=== PATIENT | male | born 1950 | race Caucasian/White ===

== ENCOUNTER 2020-03-24 09:19 | Outpatient (CLI) | payer OTHER, SELFPAY ==
--- NOTE | ~2020-03-24 | US_ITS ---
US renal BI 03/24/2020 10:06 Procedure: Realtime transabdominal ultrasound of the kidneys and bladder. Indication: Chronic kidney disease stage IV Comparison: Ultrasound dated 09/04/2019 Findings: Renal echotexture is increased, consistent with chronic medical renal disease. No discrete mass or hydronephrosis. No renal stones. The right kidney measures 10 cm and left kidney measures 13. 3 cm. Bladder wall is thickened measuring 6 mm, although not well distended. Impression: 1: Increased renal cortical echotexture, consistent with chronic medical renal disease. 2: Mild bladder wall thickening which may be due to underdistention, bladder outlet obstruction or c ystitis. Reviewed, dictated and finalized at location A. Impression: 1: Increased renal cortical echotexture, consistent with chronic medical renal disease. 2: Mild bladder wall thickening which may be due to underdistention, bladder o utlet obstruction or cystitis.
== END 2020-03-24 09:20 | disposition home or self-care (01) ==
LOC: ANHIMG 09:22
PROVIDERS: PCP Family Medicine; Visit Provider Internal Medicine Nephrology
DX: N18.4 Chronic kidney disease, stage 4 (severe) (principal); N32.9 Bladder disorder, unspecified
CPT/HCPCS: 76775

== ENCOUNTER 2020-05-22 06:03 | Observation (INO) | payer OTHER, SELFPAY ==
[2020-05-22] VITALS (16 sets, daily range): BP systolic 107–158; BP diastolic 49–63; PULSE 65–89; RESP 16–20; TEMP 36.2–36.9; O2SAT 98–100; BMI 31.6; BMI 30.4
--- NOTE | ~2020-05-22 | NM_ITS ---
EXAMINATION: NM brandi stress w perfusion DATE: 05/22/2020 14:35 INDICATION: TECHNIQUE: Rest images were obtained following intravenous administration Tc99m tetrofosmin (Myoview) . The patient was infused intravenously with Lexiscan (Regadenoson). Then additional Tc99m tetrofosmi n (Myoview) was administered intravenously, and stress images were obtained. The administered dosages are unavailable at the time of dictation. Data was reconstructed into short axis and horizontal and vertical long axis SPECT images. Gated SPECT images were also obtained. COMPARISON: None. FINDINGS: There is a moderate severity nonreversible perfusion defect consistent with infarct involvi ng the mid and basilar inferior, mid and basilar inferolateral and apical lateral segments. Small mil d reversible perfusion defect consistent with ischemia at the mid and basilar anterolateral segments. There is normal left ventricular chamber size, wall motion and ejection fraction. Left ventricular ejection fraction measures 49%. IMPRESSION: 1. Moderate severity nonreversible infarct involving the mid and basilar inferior and inferolateral s egments and the apical lateral segment. 2. Small region of mild reversible ischemia involving the mid and basilar anterolateral segments. 2. Left ventricular ejection fraction measuring 49%. Reviewed, dictated and finalized at location A. IMPRESSION: 1. Moderate severity nonreversible infarct involving the mid and basilar inferi or and inferolateral segments and the apical lateral segment. 2. Small region of mild reversible ischemia involving the mid and basilar anter olateral segments. 2. Left ventricular ejection fraction measuring 49%.
--- NOTE | ~2020-05-22 | US_ITS ---
EXAMINATION: US renal BI DATE: 05/22/2020 12:53 INDICATION: Acute on chronic kidney disease with renal failure. TECHNIQUE: Multiple ultrasound grayscale images of the kidneys were obtained. COMPARISON: 03/24/2020 FINDINGS: The right kidney measures 11.4 x 8.2 x 5.3 cm. The left kidney measures 15.1 x 7.7 x 5.0 cm. Bilatera l increased renal cortical echogenicity consistent with medical renal disease. There is no definitive hydronephrosis in either kidney although sensitivity for mild hydronephrosis is decreased by body wright bitus. No stones identified. The bladder is decompressed which limits evaluation. A left-sided urete ral jet but no right-sided ureteral jets was visualized. IMPRESSION: 1. Bilateral increased renal cortical echogenicity consistent with medical renal disease. 2. Left ureteral jet but no right ureteral jet visualized in the bladder. No definitive hydronephrosi s however sensitivity for mild hydronephrosis is decreased by patient body habitus. Reviewed, dictated and finalized at location A. IMPRESSION: 1. Bilateral increased renal cortical echogenicity consistent with medical raquel l disease. 2. Left ureteral jet but no right ureteral jet visualized in the bladder. No de finitive hydronephrosis however sensitivity for mild hydronephrosis is decrease d by patient body habitus.
--- NOTE | ~2020-05-22 | XR_ITS ---
EXAMINATION: XR chest 1V portable DATE: 05/22/2020 06:41 INDICATION: Chest tightness. Right arm numbness. TECHNIQUE: frontal view of the chest was obtained. COMPARISON: Chest radiograph dated 04/19/2011 FINDINGS: The lungs are clear with no focal airspace opacities, pulmonary edema, pleural effusion or pneumothor ax. The cardiomediastinal silhouette is normal. There are bridging osteophytes at multiple levels in the spine, consistent with diffuse idiopathic skeletal hyperostosis (DISH). Severe bilateral acromioc lavicular osteoarthritis. IMPRESSION: 1. No acute cardiopulmonary disease. Reviewed, dictated and finalized at location A.
--- NOTE | 2020-05-22 06:06 | ECG_ITS ---
Measurements Intervals [place] Rate: 82 P: 36 MT: 229 QRS: -26 QRSD: 113 T: 57 QT: 355 QTc: 415 Interpretive Statements SINUS RHYTHM WITH FIRST DEGREE AV BLOCK INCOMPLETE RIGHT BUNDLE BRANCH BLOCK ABNORMAL ECG Electronically Signed On 05-22-2020 14:52:03 CDT by Mina Whitaker D.O.
--- NOTE | 2020-05-22 06:08 | ED.GENADULT ---
HPI - General Adult General Chief complaint: Chest Pain Stated complaint: SOB/CP Time Seen by Provider: 05/22/20 06:08 Source: patient Mode of arrival: ambulatory Limitations: no limitations History of Present Illness HPI narrative: Patient is a 70-year-old male with a history of diabetes, bilateral below the knee amputations, chronic kidney disease, MGUS, following with hematology/oncology at [facility], who presents for evaluation of chest pain. Patient states that he awakened approximately 4 AM, was shaving, when he suddenly began to experience some chest pain or shortness of breath. He states symptoms lasted less than 30 minutes, and completely resolved within an hour. He wanted to seek care in the emergency department because he also had associated nausea, diaphoresis and right-sided neck pain. No current chest pain, palpitations or shortness of breath. No history of DVT. Patient did have a stent placed several years ago by Dr. Wolfe. Related Data Home Medications Medication Instructions Recorded Confirmed acetaminophen 500 mg capsule 500 mg PO BID cap 11/28/19 12/05/19 amlodipine 5 mg tablet 5 mg PO DAILY 11/28/19 12/05/19 aspirin 81 mg tablet,delayed 81 mg PO DAILY 11/28/19 12/05/19 release carboxymethylcellulose sodium 0.5 1 drop EACH EYE BID 11/28/19 12/05/19 % eye drops in a dropperette multivitamin 1 tablet PO DAILY 11/28/19 12/05/19 flu vacc [id number](65yr up)PF 180 ml IM 12/01/19 12/05/19 mcg/0.5 mL intramuscular syringe ascorbic acid (vitamin C) 250 mg 250 mg PO DAILY 12/04/19 12/05/19 tablet ferrous sulfate 325 mg (65 mg 325 mg PO DAILY 12/04/19 12/05/19 iron) tablet linagliptin 5 mg tablet 5 mg PO QAM 12/04/19 12/05/19 lisinopril 10 mg tablet 10 mg PO BID 12/04/19 12/05/19 blood sugar diagnostic #10 each 12/05/19 12/05/19 lancets #50 each 12/05/19 12/05/19 Allergies Allergy/AdvReac Type Severity Reaction Status Date / Time morphine Allergy Intermediate Dyspnea / Verified 05/22/20 06:15 SOB Review of Systems Review of Systems: Narrative: CONSTITUTIONAL: Denies fever, chills, or sweats. EYES: Denies visual changes, redness, or discharge. ENT: Denies rhinorrhea, congestion, sore throat, or otalgia. CARDIOVASCULAR: Reports chest pain RESPIRATORY: Denies cough or dyspnea. GASTROINTESTINAL: Denies abdominal pain, nausea, vomiting, or diarrhea. GENITOURINARY: Denies dysuria or hematuria. SKIN: Denies rash or itching. MUSCULOSKELETAL: Denies back pain, joint pain, or myalgia. NEUROLOGIC: Denies headache, numbness, or weakness. FOR[facility] Past Medical History Medical History BPH associated with nocturia Gout History of left below knee amputation HTN (hypertension), benign Type 2 diabetes mellitus with other circulatory complications Surgical History Surgical History History of colonoscopy (~06/2018) History of right below knee amputation Family History Family History Father Family history of obesity Family history of cataracts Hypertension, Onset Age: 72 Cerebrovascular accident Family history of diabetes mellitus in first degree relative, Onset Age: 72 Family history of hearing loss Patient's father is , Onset Age: 72 Mother Family history of malignant neoplasm Patient's mother is , Onset Age: 71 Social History Social History Smoking status: Former smoker Smoking end date: 11/21/89 Alcohol intake: never Gender identity (if verbalized by the patient): Male Exam Narrative: Exam Narrative: GENERAL: Awake, alert, conversant HEAD: Normocephalic, atraumatic. EYES: PERRLA and EOMI. ENT: Nares clear, no rhinorrhea or epistaxis. Mucous membranes moist. NECK: Supple. CHEST: No respiratory
[2020-05-22 06:25] LABS: Basophils Absolute Auto 0.1 K/mm3 (0.0-0.1); Basophils Percent Auto 0.6 % (0.2-1.2); Eosinophils Absolute Auto 0.2 K/mm3 (0-0.3); Eosinophils Percent Auto 1.7 % (0-4.4); Hemoglobin 9.5 g/dL (14.0-18.0); Immature Granulocyte Absolute 0.06 K/mm3 (0.00-0.031); Immature Granulocyte Percent A 0.5 % (0-0.5); Lymphocytes Absolute Auto 1.55 K/mm3 (0.9-3.2); Lymphocytes Percent Auto 13.7 % (18.3-44.2); Mean Corpuscular HGB Conc 32.8 g/dl (32-36); Mean Corpuscular Hemoglobin 31.3 pg (26-34); Mean Corpuscular Volume 95.4 fl (80-100); Mean Platelet Volume 9.9 fl (7.4-10.4); Monocytes Absolute Auto 0.9 K/mm3 (0.1-0.6); Monocytes Percent Auto 8.3 % (2.6-8.5); Neutrophils Absolute Auto 8.5 K/mm3 (1.3-6.7); Neutrophils Percent Auto 75.2 % (45.5-73.1); Platelet Count Result 243 k/mm3 (150-375); Red Blood Count 3.04 M/mm3 (4.6-6.20); Red Cell Distribution Width 13.3 % (11.5-14.5); White Blood Count 11.4 K/mm3 (4.5-10.0)
--- NOTE | 2020-05-22 06:30 | PC.NURSE ---
PT TO RADIOLOGY AT THIS TIME IN [facility].
[2020-05-22 06:35] LABS: INR 1.1; Prothrombin Time 13.5 Seconds (11.1-14.7)
[2020-05-22 06:37] LABS: Blood Urea Nitrogen 77 mg/dL (9-20); Calcium 9.1 mg/dL (8.4-10.2); Carbon Dioxide 23 mmol/L (22-30); Chloride 105 mmol/L (98-107); Estimated CRCL calculation 15 ml/min; Estimated Glomerular Filt Rate 9; Glucose 109 mg/dL (75-110); Partial Thromboplastin Time 64.1 SECONDS (22.3-36.8); Potassium 5.3 mmol/L (3.4-5.0); Sodium 139 mmol/L (137-145)
[2020-05-22] MEDS: ASPIRIN 81 MG CHEWABLE TABLET 324 MG PO (06:43)
--- NOTE | 2020-05-22 07:06 | PC.NURSE ---
PT REPORT GIVEN TO CAT COFFMAN, SHE HAS ASSUMED PT CARE.
--- NOTE | 2020-05-22 08:43 | ADMGEN ---
This patient, Sal Duarte, was admitted to IMU Room 209-. Patient/family oriented to hospital policies and general routines including ID bracelet, bed and alarms, visiting hours, pain management, procedures, bathroom and other care routines, personal items, smoking policy, room service/diet, and visiting hours. Valuables list has been completed. Information on how to activate the Rapid Response Team has been discussed. Patient/Family are encouraged to report perceived risks to care and to ask questions if they do not understand what they are told or what they should do.
--- NOTE | 2020-05-22 09:01 | PM.CNCAR ---
Assessment and Plan Assessment and plan (1) Chest pain: Qualifiers: Chest pain type: unspecified Qualified Code(s): R07.9 - Chest pain, unspecified Code(s): R07.9 - Chest pain, unspecified Status: Acute Assessment and Plan: Has a history of proximal LAD drug-eluting stent 2009. So far 2-troponins and no ischemic changes on EKG. Given his high-risk features will arrange for a Lexiscan stress test to rule out ischemia. (2) Acute kidney injury: Code(s): N17.9 - Acute kidney failure, unspecified Status: Acute Assessment and Plan: Acute on chronic kidney injury. Baseline creatinine 4 today the creatinine 6. Recommend Nephrology input. Nephrology (3) CAD (coronary artery disease): Code(s): I25.10 - Atherosclerotic heart disease of [place] coronary artery without angina pectoris Status: Acute Assessment and Plan: Continue aspirin History of Present Illness History of Present Illness Consult date/time: Date of service 05/22/20 09:01 This is 70-year-old patient with past medical history of diabetes, bilateral BKA, hypertension, hyperlipidemia, CKD. Patient has a history of proximal LAD stenting 2009. Last time he followed up with Dr. Wolfe was 3 years ago. November 23, 2016. He woke up this morning feeling central chest discomfort, sweating. He took a shower and then went to the kitchen and was having increasing shortness of breath. Denies dizziness, palpitations, syncope, fever, chills, cough EKG reviewed myself shows sinus rhythm, first-degree heart block, incomplete right bundle branch block. No ischemia. 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 Reason For Visit: chest pain Review of Systems Constitutional: Constitutional: Denies chills, Denies fever(s) and Denies poor appetite Eyes: Eyes: Denies eye discharge, Denies loss of vision, Denies eye pain and Denies photophobia ENT: Denies dizziness, Denies epistaxis, Denies nasal congestion and Denies sore throat Cardiovascular: Cardiovascular: Reports chest pain, Denies syncope, Denies pedal edema, Denies leg edema, Denies palpitations, Reports dyspnea, Reports dyspnea on exertion and Denies orthopnea Respiratory: Respiratory: Denies cough, Reports dyspnea, Reports dyspnea on exertion and Denies wheezing Gastrointestinal: Gastrointestinal: Denies abdominal pain, Denies diarrhea, Denies nausea and Denies vomiting Genitourinary: Genitourinary: Denies hematuria, Denies genital lesions and Denies dysuria Musculoskeletal: Musculoskeletal: Denies arthralgias, Denies joint swelling and Denies numbness Integumentary/Breasts: Skin/Breast: Denies pruritus and Denies rash Neurologic: Denies dizziness, Denies syncope, Denies loss of vision and Denies numbness Psychiatric: Psychiatric: Denies anxiety and Denies depression Endocrine: Endocrine: Denies cold intolerance, Denies heat intolerance and Denies palpitations Hematologic/Lymphatic: Hematologic/Lymphatic: Denies easy bleeding and Denies easy bruising Allergic/Immunologic: Allergic/Immunologic: Denies urticaria and Denies wheezing PMFSH Past Medical History Medical History BPH associated with nocturia Gout History of left below knee amputation HTN (hypertension), benign Type 2 diabetes mellitus with other circulatory complications Surgical History Surgical History History of colonoscopy (~06/2018) History of right below knee amputation Family History Family History Father Family history of hearing loss Family history of diabetes mellitus in f
[2020-05-22 09:55] LABS: Troponin I 0.027 ng/mL (0.000-0.034)
--- NOTE | 2020-05-22 10:10 | EST_ITS ---
Patient Info Name: Sal Duarte Age: 70 years : 1950 Gender: Male Ht: 76 in Wt: 250 lbs BSA: 2.49 m2 Heart Rhythm: Sinus Rhythm Exam Date: 05/22/2020 1:19 PM Exam Location: [facility] Stress Patient Status: Outpatient Admit Date: 05/22/2020 Staff Ordering Physician: Tin Allred MD Attending Provider: Edin Gao MD Exercise Technologist: Rianna Swartz RDCS Nurse: Amarilis Ellison ANP, ACNP- Exam Type: CA stress brandi w NM Study Info Indications R07.9 - Chest pain, unspecified A regadenoson stress test was performed. Summary 1. No arrhythmias were observed during the examination. 2. No abnormal ST/T wave changes with exercise. 3. Please correlate with nuclear medicine images, reported separately. 4. No chest discomfort with stress test. Protocol: Lexiscan Stress ECG Details Stage: REST Duration (min): 1 min : 4 sec HR (bpm): 74 SBP (mmHg): 146 DBP (mmHg): 64 Stage: REST Duration (min): 10 min : 53 sec HR (bpm): 75 SBP (mmHg): 146 DBP (mmHg): 64 Stage: STAGE 1 Duration (min): 0 min : 59 sec HR (bpm): 79 SBP (mmHg): 145 DBP (mmHg): 63 Stage: RECOVERY Duration (min): 1 min : 0 sec HR (bpm): 88 SBP (mmHg): 122 DBP (mmHg): 57 Stage: RECOVERY Duration (min): 2 min : 0 sec HR (bpm): 85 SBP (mmHg): 122 DBP (mmHg): 57 Stage: RECOVERY Duration (min): 3 min : 0 sec HR (bpm): 83 SBP (mmHg): 115 DBP (mmHg): 41 Stage: RECOVERY Duration (min): 4 min : 0 sec HR (bpm): 81 SBP (mmHg): 115 DBP (mmHg): 41 Stage: RECOVERY Duration (min): 5 min : 0 sec HR (bpm): 79 SBP (mmHg): 122 DBP (mmHg): 52 Stage: RECOVERY Duration (min): 6 min : 0 sec HR (bpm): 78 SBP (mmHg): 122 DBP (mmHg): 52 Stage: RECOVERY Duration (min): 7 min : 0 sec HR (bpm): 77 SBP (mmHg): 127 DBP (mmHg): 51 Stage: RECOVERY Duration (min): 8 min : 0 sec HR (bpm): 78 SBP (mmHg): 127 DBP (mmHg): 51 Stage: RECOVERY Duration (min): 9 min : 0 sec HR (bpm): 79 SBP (mmHg): 129 DBP (mmHg): 51 Stage: RECOVERY Duration (min): 10 min : 0 sec HR (bpm): 77 SBP (mmHg): 129 DBP (mmHg): 51 Stage: RECOVERY Duration (min): 11 min : 0 sec HR (bpm): 76 SBP (mmHg): 118 DBP (mmHg): 50 Stage: RECOVERY Duration (min): 11 min : 34 sec HR (bpm): 75 SBP (mmHg): 138 DBP (mmHg): 55 Rest HR: 75 bpm Peak HR: 88 bpm Rest Sys BP: 146 mmHg Peak Sys BP: 145 mmHg Max Pred HR: 150 bpm % Max Pred HR: 59 % Target HR: 128 bpm Max RPP: 12,760 bpm*mmHg Total Time: 1 min : 0 sec Rest Lynch BP: 64 mmHg Peak Lynch BP: 63 mmHg Total Dose: 0.4 mg Aminophylline Dose: 50 mg Resting ECG Normal sinus rhythm. First degree A-V Block. Nonspecific IVCD. Stress
--- NOTE | 2020-05-22 11:20 | PM.CNNEP ---
Assessment and Plan Assessment and plan (1) Acute kidney injury: Code(s): N17.9 - Acute kidney failure, unspecified Status: Acute (2) CKD (chronic kidney disease), stage V: Code(s): N18.5 - Chronic kidney disease, stage 5 Status: Chronic (3) Chest pain: Qualifiers: Chest pain type: unspecified Qualified Code(s): R07.9 - Chest pain, unspecified Code(s): R07.9 - Chest pain, unspecified Status: Chronic (4) HTN (hypertension), benign: Code(s): I10 - Essential (primary) hypertension Status: Chronic (5) PVD (peripheral vascular disease): Code(s): I73.9 - Peripheral vascular disease, unspecified Status: Chronic (6) Diabetes: Code(s): E11.9 - Type 2 diabetes mellitus without complications Status: Chronic Assessment and Plan: . Additional Plan Sal has chronic kidney disease with recent deterioration of his kidney function since November of 2019. I suspect that his elevated creatinine on this admission is more a manifestation of chronic kidney disease progression that it is an acute insult on his baseline disease. His labs over the last several months or more indicative of slow and steady deterioration as far as I can tell. However, I do not want discount the possibility of some reversible causes to his rising creatinine as if this is indeed kidney disease progression, the next step will be renal replacement therapy/dialysis. I will check urine electrolytes, urine eosinophils, I urinalysis and follow the trend of his repeat labs regarding his creatinine. I will also check a repeat renal ultrasound although his ultrasound done in March of 2020 just so changes consistent with medical renal disease. He does have some mild/soft uremic symptoms with regard to fatigue and insomnia but no overt nausea, vomiting, poor appetite, metallic taste in his mouth, difficulty thinking/concentrating...etc. I did have a very long and lengthy discussion with the patient (greater than 20 minutes) regarding the possibility that he may need to consider starting dialysis sooner than later as his labs may be a manifestation that his kidneys are just ?running out of gas.? For now, I would continue with current measures as is with regard to further evaluation of his chest pain and follow the trend of his CKD parameters with regard to his electrolytes, hemoglobin/hematocrit, volume status, acid-base status,..etc and make further adjustments to his medications as deemed necessary with regard to these parameters. I will continue follow patient with you while he remains hospitalized and make further recommendations during his hospital course Thank you for allowing me to participate in care this patient. History of Present Illness Reason for Consult Consult date: 05/22/20 Reason for consult: acute renal failure and chronic renal failure (possible progression of disease) Chief Complaint Chief complaint: chest pain History of Present Illness Narrative: The patient is a very pleasnt 70-year-old male with a significant past medical history as outlined below who presented to [facility] ER with complaints of chest pain. The patient noted the chest pain early this morning. The chest pain was localized in his central chest area on and last approximately 30 minutes or less and resolved within an hour. Associated symptoms included mild shortness of breath, nausea, diaphoresis, and neck pain. He reported no dizziness, palpitations syncope fevers chills or cough. Because of the symptoms and his history of coronary artery disease, he came to the ER for further evaluation. Workup and evaluation in the emergency room demonstrated the patient to be hemodynamically stable and his 1st troponin was negative. Routine blood test demonstrated a significant decline in his baseline kidney function from a creatinine of 4.0 to 6 with a mildly elevated white blood cell count and a chest x
[2020-05-22] MEDS: TAMSULOSIN HCL 0.4 MG CAPSULE PO (11:59)
[2020-05-22 12:19] LABS: Glucose Point of Care 86 (65-105)
[2020-05-22 12:19] LABS: Glucose Point of Care 70 (65-105)
[2020-05-22 13:02] LABS: Troponin I 0.031 ng/mL (0.000-0.034)
[2020-05-22 15:00] LABS: Glucose Point of Care 115 (65-105)
[2020-05-22 16:28] LABS: Glucose Point of Care 99 (65-105)
--- NOTE | 2020-05-22 17:18 | PM.IMHP ---
H&P: HPI History of Present Illness Chief complaint: chest pain Narrative: Date of visit 05/22 830. Sal Duarte is a 70 year old male with type 2 diabetes hypertension history of coronary disease and chronic renal failure who this a.m. early after rising developed substernal chest pressure with associated shortness of breath and diaphoresis. Pain seemed to radiate to his neck and he did take 3 nitroglycerins in a 15 minutes period and pain slowly subsided over the next 1/2 hour period. Contacted his physician services and they suggested he come to the emergency room for evaluation. He had a stent to his LAD July 2014 other arteries essentially normal. He had a non STEMI myocardial infarction 2009 with no intervention at that time. He states he has not had any symptoms since the episode in 2013 and is never taken nitroglycerin till today Review of Systems Review of Systems: Narrative: Constitutionally status that slow steady weight loss over last few years over 50 lb with dieting No fever no chills Eye no double vision scotoma, cataract extraction left eye 3 weeks ago had with good results Mouth no pharyngitis laryngitis Pulmonary of and present illness no shortness breath wheezing or cough CV no palpitation GI no melena hematochezia diarrhea some slowing of urination and has been placed on Flomax for BPH Extremity has bilateral BKA Neuro no seizures no syncope Psych no depression PMFSH Past Medical History Medical History (Updated 05/22/20 @ 17:31 by Edni Gao MD) BPH associated with nocturia CAD (coronary artery disease) Gout History of left below knee amputation HTN (hypertension), benign Type 2 diabetes mellitus with other circulatory complications Surgical History Surgical History History of colonoscopy (~06/2018) History of right below knee amputation Family History Family History Father , Age 70 Family history of hearing loss Family history of diabetes mellitus in first degree relative, Onset Age: 72 Patient's father is , Onset Age: 72 Family history of obesity Family history of cataracts Hypertension, Onset Age: 72 Cerebrovascular accident Mother , Age 78 and had leukemia her complicated of pneumonia Family history of malignant neoplasm Patient's mother is , Onset Age: 71 Sibling Aneurysm Diabetes mellitus Congestive heart failure Social History Social History Smoking packs per day: 1 Smoking cigarettes per day: 20.0 Years smoked: 8 Smoking pack-years: 8.00 Smoking status: Former smoker Tobacco type: cigarettes Smoking end date: 11/21/89 Additional smoking assessment comments: quit about 25 yrs ago Alcohol intake: never Substance use: never Gender identity (if verbalized by the patient): Male Spiritual care concerns: No Meds Home Medications and Allergies Home Medications Medication Instructions Recorded Confirmed Type acetaminophen 500 mg capsule 1,000 mg PO Q6H PRN cap 11/28/19 05/22/20 History amlodipine 5 mg tablet 5 mg PO DAILY 11/28/19 05/22/20 History aspirin 81 mg tablet,delayed 81 mg PO DAILY 11/28/19 05/22/20 History release carboxymethylcellulose sodium 0.5 1 drop EACH EYE BID PRN 11/28/19 05/22/20 History % eye drops in a dropperette multivitamin 1 tablet PO DAILY 11/28/19 05/22/20 History tamsulosin 0.4 mg capsule 0.4 mg PO DAILY #90 cap 11/28/19 05/22/20 Rx allopurinol 100 mg tablet 100 mg PO DAILY #90 tablet 11/29/19 05/22/20 Rx famotidine 20 mg tablet 20 mg PO BID #180 tablet 11/29/19 05/22/20 Rx ascorbic acid (vitamin C) 250 mg 250 mg PO BIDWM 12/04/19 05/22/20 History tablet ferrous sulfate 325 mg (65 mg 325 mg PO BIDWM 12/04/19 05/22/20 History iron) tablet linagliptin 5 mg tablet 5 mg PO QAM 12/04/19 05/22/20
[2020-05-22] MEDS: FERROUS SULFATE 324 MG TABLET PO (17:34)
[2020-05-22] MEDS: ASCORBIC ACID 250 MG TABLET PO (17:35)
[2020-05-22] MEDS: AMLODIPINE BESYLATE 5 MG TABLET PO (17:35)
[2020-05-22 19:16] LABS: Creatinine Urine 41.6 mg/dL
[2020-05-22 19:27] LABS: Sodium Urine Random 43 meq/L
[2020-05-22 19:28] LABS: Total Protein Urine Random 358 mg/dL
[2020-05-22] MEDS: METOPROLOL TARTRATE 50 MG TAB PO (20:36)
[2020-05-22] MEDS: FAMOTIDINE 20 MG TABLET PO (20:36)
[2020-05-22] MEDS: SIMVASTATIN 10 MG TABLET PO (20:36)
[2020-05-22 22:03] LABS: Glucose Point of Care 139 (65-105)
[2020-05-23] VITALS (13 sets, daily range): BP systolic 124–183; BP diastolic 35–71; PULSE 57–105; RESP 18–20; TEMP 35.6–36.1; O2SAT 88–100
[2020-05-23] MEDS: ACETAMINOPHEN 325 MG TABLET 650 MG PO (02:34)
[2020-05-23 04:56] LABS: Basophils Absolute Auto 0.1 K/mm3 (0.0-0.1); Basophils Percent Auto 0.6 % (0.2-1.2); Eosinophils Absolute Auto 0.2 K/mm3 (0-0.3); Eosinophils Percent Auto 1.8 % (0-4.4); Hemoglobin 8.9 g/dL (14.0-18.0); Immature Granulocyte Absolute 0.05 K/mm3 (0.00-0.031); Immature Granulocyte Percent A 0.5 % (0-0.5); Lymphocytes Absolute Auto 2.19 K/mm3 (0.9-3.2); Lymphocytes Percent Auto 21.1 % (18.3-44.2); Mean Corpuscular Hemoglobin 31.2 pg (26-34); Mean Corpuscular Volume 94.7 fl (80-100); Mean Platelet Volume 9.8 fl (7.4-10.4); Monocytes Percent Auto 9.7 % (2.6-8.5); Neutrophils Absolute Auto 6.9 K/mm3 (1.3-6.7); Neutrophils Percent Auto 66.3 % (45.5-73.1); Platelet Count Result 238 k/mm3 (150-375); Red Blood Count 2.85 M/mm3 (4.6-6.20); Red Cell Distribution Width 13.2 % (11.5-14.5); White Blood Count 10.4 K/mm3 (4.5-10.0)
[2020-05-23 05:06] LABS: Blood Urea Nitrogen 80 mg/dL (9-20); Calcium 8.5 mg/dL (8.4-10.2); Carbon Dioxide 22 mmol/L (22-30); Chloride 102 mmol/L (98-107); Estimated CRCL calculation 15 ml/min; Estimated Glomerular Filt Rate 9; Glucose 106 mg/dL (75-110); Sodium 133 mmol/L (137-145)
[2020-05-23] MEDS: ASCORBIC ACID 250 MG TABLET PO (08:51)
[2020-05-23] MEDS: FERROUS SULFATE 324 MG TABLET PO (08:51)
[2020-05-23] MEDS: METOPROLOL TARTRATE 50 MG TAB PO (08:51)
[2020-05-23] MEDS: MULTIVITAMINS THERAPEUTIC TAB (*BKC) 1 TABLET PO (08:52)
[2020-05-23 09:11] LABS: Glucose Point of Care 98 (65-105)
--- NOTE | 2020-05-23 11:11 | PM.PNCARD ---
Progress Note: A&P Assessment and Plan (1) Chest pain: Qualifiers: Chest pain type: unspecified Qualified Code(s): R07.9 - Chest pain, unspecified Code(s): R07.9 - Chest pain, unspecified Status: Chronic Assessment and Plan: No recurrence. Serial troponins negative and ruled out for acute myocardial infarction. Symptoms concerning for ischemic equivalent as an outpatient. Lengthy discussion held with regards risk and benefits of coronary angiography. Given results of stress test coronary angiography advised, however, timing will be crucial. If patient remains asymptomatic prefer to follow conservative path given the fact that coronary angiography and contrast exposure will very likely result in initiation of hemodialysis. No immediate plans to start hemodialysis, however, it appears to be inevitable. Patient would not prefer to proceed with cardiac catheterization given this risk particular as he is feeling well. He was advised that he could have worsening symptoms and/or ultimately acute myocardial infarction, however, he wishes to proceed with a conservative path on medical therapy and communicate any new or worsening symptoms immediately with recommendations to follow thereafter. We may proceed with cardiac catheterization if necessary but he will need to be prepared to start hemodialysis at that time. Curiously, the abnormalities on his stress test involve several other areas of his heart with exception of anterior wall which was where he had predominant disease on last [facility] in 2009. He had minimal to no disease in the circ and RCA at that time. Furthermore, he has no associated wall motion abnormalities with preserved LV function. Has a history of proximal LAD drug-eluting stent 2009. Add Imdur 30 mg daily for additional antianginal benefit. Check fasting lipid profile. Continue statin, metoprolol, aspirin 81 mg daily, AMANDA-inhibitor. Follow-up with Dr. Wolfe as an outpatient in the next 2-4 weeks. He will notify the office immediately with recurrent chest pain, shortness of breath or otherwise unexplained fatigue. Patient aware of the risk for myocardial infarction in general. Patient stable, asymptomatic without acute infarction. All questions answered to his satisfaction. Patient in agreement with the plan of care. Will see as needed. Please do not hesitate to contact us with additional questions or concerns. (2) Acute kidney injury: Code(s): N17.9 - Acute kidney failure, unspecified Status: Acute Assessment and Plan: Management per Nephrology. Acute on chronic kidney injury. Dialysis inevitable but no immediate plans thus far. Recommend Nephrology input. Nephrology (3) CAD (coronary artery disease): Code(s): I25.10 - Atherosclerotic heart disease of tribe coronary artery without angina pectoris Status: Acute Assessment and Plan: Continue aspirin, beta-angely, AMANDA-inhibitor, statin. Management as above. Subjective Date/time seen: Date of service: 05/23/20 11:11 Follow-up for chest pain, CAD history Interval history: No recurrent complaints of chest pain. No shortness of breath. No new issues overnight. Stress test yesterday revealed fixed defect with mild ischemia, EF 49% without wall motion abnormalities. Patient feels fine and has no other complaints at this time. Review of Systems Review of Systems: All systems reviewed & are unremarkable except as noted in HPI and below Constitutional: Constitutional: Reports as per HPI, Denies chills, Denies fever(s) and Denies poor appetite Eyes: Eyes: Reports as per HPI, Denies eye discharge, Denies loss of vision, Denies eye pain and Denies photophobia ENT: Reports as per HPI, Denies dizziness, Denies epistaxis, Denies nasal congestion and Denies sore throat Cardiovascular: Cardiovascular: Reports as per HPI, Denies chest pain, Denies syncope, Denies pedal edema, Denies leg edema, Denies pa
[2020-05-23 12:50] LABS: Cholesterol 129 mg/dL (0-200); HDL Direct 23 mg/dL; Triglycerides 133 mg/dL (<150)
[2020-05-23 13:02] LABS: LDL Cholesterol Direct 77 mg/dL
[2020-05-23 13:24] LABS: Glucose Point of Care 165 (65-105)
--- NOTE | 2020-05-23 13:56 | PM.PNNEP ---
Progress Note: A&P Assessment and Plan (1) CKD (chronic kidney disease), stage V: Code(s): N18.5 - Chronic kidney disease, stage 5 Status: Chronic Assessment and Plan: based on all evidence to date, suspect current creatinine is a manifestation of kidney disease progression in spite of advanced disease, no critical electrolyte abnormalities, stable acid-base status, no evidence of volume overload, and no issue related to uremia hence, no need for urgent dialysis at this time but he will require it in the near future follow CKD parameters (2) Chest pain: Qualifiers: Chest pain type: unspecified Qualified Code(s): R07.9 - Chest pain, unspecified Code(s): R07.9 - Chest pain, unspecified Status: Chronic Assessment and Plan: stress test results noted Cardiology discussion and recommnedations reviewed patient opting for conservative management at this time (3) HTN (hypertension), benign: Code(s): I10 - Essential (primary) hypertension Status: Chronic Assessment and Plan: well controlled at this time follow trend of hemodynamics continue current medications (4) PVD (peripheral vascular disease): Code(s): I73.9 - Peripheral vascular disease, unspecified Status: Chronic Assessment and Plan: chronic issue and stable (5) Diabetes: Code(s): E11.9 - Type 2 diabetes mellitus without complications Status: Chronic Assessment and Plan: follow accuchecks on SSI Discussed with Dr. Gao -- not opposed to discharge from renal perspective; he will follow-up with Dr. Joseph in clinic regarding his CKD and dialysis access planning. Will continue to follow. Subjective Date/time seen: 05/23/20 13:56 No further chest pain since admission; results of nuclear stress test noted; no other acute issues or problems to report at this time; no apparent distress voiced. Exam Narrative: Exam Narrative: General: WD/WN male/female in NAD Heart: normal S1 and S2; no rub Lungs: clear to auscultation Abdomen: soft, nontender, nondistended, positive bowel sounds Extremities: no cyanosis or clubbing; s/p bilateral BKA Skin: warm and dry Objective Data Vital Signs Vital Signs: Vital Signs Temp Pulse Resp BP Pulse Ox 05/23/20 13:26 35.9 C L 67 20 124/35 L 100 05/23/20 12:00 76 05/23/20 10:00 105 H 05/23/20 08:51 87 05/23/20 08:48 35.6 C L 76 18 183/71 H 100 05/23/20 08:00 84 05/23/20 06:00 57 L 05/23/20 04:00 72 05/23/20 03:45 36.1 C L 69 18 135/66 88 L 05/23/20 02:00 67 05/23/20 00:00 36.1 C L 65 18 158/60 H 100 05/22/20 22:00 75 05/22/20 20:36 84 05/22/20 20:00 76 05/22/20 19:37 36.2 C L 75 18 133/49 L 100 05/22/20 18:00 78 05/22/20 16:35 36.5 C 73 20 158/63 H 100 05/22/20 16:00 75 05/22/20 14:00 87 Intake/Output Intake/Output: Intake & Output 05/20/20 05/21/20 05/22/20 05/23/20 23:59 23:59 23:59 23:59 Intake Total 440 1860 Output Total 700 650 Balance -260 1210 Meds/Results Medications: Active Medications Generic Name Dose Route Start Last Admin Trade Name Freq PRN Reason Stop Dose Admin Acetaminophen 650 mg 05/22/20 07:18 05/23/20 02:34 Tylenol Tablet PO 650 mg Q4H PRN Administration Mild Pain (1-3) or Fever Allopurinol 100 mg 05/23/20 09:00 Zyloprim PO DAILY [facility] Amlodipine Besylate 5 mg 05/22/20 10:20 05/22/20 17:35 Norvasc PO 5 mg DAILY BELL Administration Artificial Tears 1 drop 05/22/20 10:15 Artificial Tears EACH EYE BID PRN Dry Eyes Ascorbic Acid 250 mg 05/22/20 17:00 05/23/20 08:51 Vitamin C PO 250 mg BIDWM BELL Administration Aspirin 81 mg 05/23/20 09:00 Aspirin Ec PO QAM BELL Dextrose 12.5 gm 05/22/20 10:20 Dextrose 50% Syringe IV PUSH PRN PRN Hypoglycemia
[2020-05-23] MEDS: allopurinoL 100 MG TABLET PO (14:06)
[2020-05-23] MEDS: ISOSORBIDE MONONITRATE 30 MG TAB.ER.24H PO (14:06)
[2020-05-23] MEDS: ASPIRIN 81 MG ENTERIC TABLET PO (14:06)
--- NOTE | 2020-05-27 08:13 | PM.DS ---
DS: Admitting Diagnosis Admitting Diagnosis Admitting Diagnosis: Chest pain, unspecified DS: Discharge Diagnosis Discharge Diagnosis (1) Chest pain: Qualifiers: Chest pain type: unspecified Qualified Code(s): R07.9 - Chest pain, unspecified Code(s): R07.9 - Chest pain, unspecified Status: Chronic Assessment and Plan: Pain compatible with angina. Initial troponin negative and Lexiscan revealed inferior infarct mild reversible ischemia anterior lateral wall. nitrate added to medical regime but no cardiac catheterization due to renal status Imdur 30 mg qd (2) CKD (chronic kidney disease), stage V: Code(s): N18.5 - Chronic kidney disease, stage 5 Status: Chronic Assessment and Plan: Creatinine is slowly risen since November and by nephrology notes was 4 in February in 5 in March.. Now up to 6. 2 days in a row. No obstructive on sonogram and probably simply progression of disease follow up with nephrology with anticipation of starting dialysis soon (3) Diabetes: Code(s): E11.9 - Type 2 diabetes mellitus without complications Status: Chronic Assessment and Plan: Diabetes some 30 years and patient states A1cs have been between 5 and 6. Hold oral hypoglycemics while here and sliding scale (4) BPH associated with nocturia: Code(s): N40.1 - Benign prostatic hyperplasia with lower urinary tract symptoms; R35.1 - Nocturia Status: Acute Assessment and Plan: Continue Flomax no evidence of some obstruction on US (5) HTN (hypertension), benign: Code(s): I10 - Essential (primary) hypertension Status: Chronic Assessment and Plan: Pressure well controlled continue his beta-angely and amlodipine but hold lisinopril with worsening renal function DS: Summary Hospital Course Hospital Course: 70-year-old hypertensive type 2 diabetic chronic renal failure admitted with chest pain. Patient had Lexiscan stress test which revealed large fixed defect inferiorly and mild reversible defect anterior lateral wall due to renal failure cardiac catheterization was not considered. Imdur added and if patient has further symptoms and chronic dialysis is instituted would be a candidate for cardiac catheterization Time Spent with Patient Time attestation: Total time spent providing and/or coordinating discharge services:35 minutes Exam Narrative: Exam Narrative: condition on discharge bp 124/40 p 68 sat 100% RA lungs clear CV rrr no murmers Abd soft , nontender extrem bilateral BKA Discharge Plan Discharge Attending physician on discharge: Edin Gao Consulting providers: Tin Allred ; Julio Cesar Huang ; Nixon Wilkinson ; Mina Whitaker ; Janine Mcdermott Discharging Clinician: Edin Gao Patient Disposition: Home, Self-Care Activity: as tolerated Diet: diabetic and low protein Discharge Instructions: Notify the cardiology office immediately with recurrent chest pain, shortness of breath or otherwise unexplained fatigue. Patient Instructions: Chest Pain (DC), Chronic Kidney Disease (DC) Stand Alone Forms: General Discharge Information Follow-up/Referrals: Nitin Wolfe MD [Physician] - Call for Appointment (Follow-up with Dr. Wolfe as an outpatient in the next 2-4 weeks. ) Sachin Joseph MD [Physician] - Keep Reg. Scheduled Appt. Discharge Medications: New isosorbide mononitrate 30 mg Tablet Extended Release 24 Hr 30 mg PO QAM Qty: 30 RF: 0 Continued amlodipine 5 mg tablet 5 mg PO DAILY RF: 0 multivitamin Tablet 1 tablet PO DAILY RF: 0 acetaminophen 500 mg capsule 1,000 mg PO Q6H PRN (Reason: Pain) RF: 0 Lubricant Eye Drops 0.5 % dropperette 1 drop EACH EYE BID PRN (Reason: Dry Eyes) RF: 0 aspirin [Adult Low Dose Aspirin] 81 mg tablet,delayed release (DR/EC) 81 mg PO DAILY RF: 0 tamsulosin 0.4 mg capsule 0.4 mg PO DAILY Qty: 90 RF: 3
[2020-05-28 18:35] LABS: Chloride Rand Ur 40 mmol/L (32-290); Chloride/Creatinine Rand Ur 93 (23-275); Creatinine Random Urine 43 mg/dL (20-320)
== END 2020-05-23 18:10 | disposition home or self-care (01) ==
LOC: ANHED 06:48 → ANHIMU 07:30
PROVIDERS: Internal Medicine Cardiovascular Disease; Internal Medicine Nephrology; Admitting Provider Internal Medicine; Emergency Provider Emergency Medicine; PCP Family Medicine; Visit Provider Internal Medicine
DX: R07.9 Chest pain, unspecified (principal); N17.9 Acute kidney failure, unspecified; I25.10 Atherosclerotic heart disease of native coronary artery without angina pectoris; E11.22 Type 2 diabetes mellitus with diabetic chronic kidney disease; I12.0 Hypertensive chronic kidney disease with stage 5 chronic kidney disease or end stage renal disease; N18.5 Chronic kidney disease, stage 5; E11.51 Type 2 diabetes mellitus with diabetic peripheral angiopathy without gangrene; D47.2 Monoclonal gammopathy; N40.1 Benign prostatic hyperplasia with lower urinary tract symptoms; R35.1 Nocturia; M10.9 Gout, unspecified; I25.2 Old myocardial infarction; E78.5 Hyperlipidemia, unspecified; Z79.82 Long term (current) use of aspirin; Z79.84 Long term (current) use of oral hypoglycemic drugs; Z87.891 Personal history of nicotine dependence; Z89.512 Acquired absence of left leg below knee; Z89.511 Acquired absence of right leg below knee
CPT/HCPCS: 36415; 71045; 76775; 78452; 80048; 80061; 81050; 82436; 82570; 84156; 84300; 84484; 85025; 85610; 85730; 85999; 93005; 93017; 99285; A9270; A9502; G0378; J0280; J2785

== ENCOUNTER 2020-06-29 20:47 | Inpatient (IN) | payer OTHER, SELFPAY ==
--- NOTE | ~2020-06-29 | XR_ITS ---
EXAMINATION: XR chest 2V DATE: 06/29/2020 21:46 INDICATION: Left-sided chest pain radiating down the left arm TECHNIQUE: frontal and lateral views of the chest were obtained. COMPARISON: Chest radiograph dated 05/22/2020 FINDINGS: The lungs remain clear with no focal airspace opacities, pulmonary edema, pleural effusion or pneumot horax. The cardiomediastinal silhouette is normal. Severe bilateral acromioclavicular osteoarthritis. IMPRESSION: 1. No acute cardiopulmonary disease. Reviewed, dictated and finalized at location A.
[2020-06-29 20:53] VITALS: BP 137/73; PULSE 109; RESP 17; TEMP 36.7; O2SAT 99
--- NOTE | 2020-06-29 20:57 | ED.CHESTPAIN ---
HPI - Chest Pain General Chief Complaint: Chest Pain Stated Complaint: CP Time Seen by Provider: 06/29/20 20:52 History of Present Illness HPI narrative: Pressure-like chest pain since 5 PM. Radiates into neck. Worse with exertion. Associated with SOB. Feels like previous PA. Related Data Home Medications Medication Instructions Recorded Confirmed acetaminophen 500 mg capsule 1,000 mg PO Q6H PRN cap 11/28/19 06/06/20 amlodipine 5 mg tablet 5 mg PO DAILY 11/28/19 06/06/20 aspirin 81 mg tablet,delayed 81 mg PO DAILY 11/28/19 06/06/20 release multivitamin 1 tablet PO DAILY 11/28/19 06/06/20 ascorbic acid (vitamin C) 250 mg 250 mg PO BIDWM 12/04/19 06/06/20 tablet ferrous sulfate 325 mg (65 mg 325 mg PO BIDWM 12/04/19 06/06/20 iron) tablet lisinopril 10 mg tablet 20 mg PO BID 12/04/19 06/06/20 simvastatin 10 mg PO HS 05/22/20 06/06/20 Adults Multivitamin 1 tab-cap PO DAILY 06/29/20 glipizide 5 mg PO DAILY 06/29/20 linagliptin [Tradjenta] 5 mg PO DAILY 06/29/20 metoprolol tartrate 50 mg PO BID 06/29/20 06/29/20 Allergies Allergy/AdvReac Type Severity Reaction Status Date / Time morphine Allergy Severe Stopped Verified 06/05/20 08:52 Breathing Review of Systems Review of Systems: All systems reviewed & are unremarkable except as noted in HPI and below Constitutional: Constitutional: Denies fever(s) Cardiovascular: Cardiovascular: Reports chest pain and Reports radiating jaw, neck or arm pain Respiratory: Respiratory: Reports dyspnea Gastrointestinal: Gastrointestinal: Denies abdominal pain and Denies nausea Musculoskeletal: Musculoskeletal: Denies back pain [facility] Past Medical History Medical History BPH associated with nocturia CAD (coronary artery disease) Gout History of left below knee amputation HTN (hypertension), benign Type 2 diabetes mellitus with other circulatory complications Surgical History Surgical History History of colonoscopy (~06/2018) History of right below knee amputation Family History Family History Father , Age 70 Family history of hearing loss Family history of diabetes mellitus in first degree relative, Onset Age: 72 Patient's father is , Onset Age: 72 Family history of obesity Family history of cataracts Hypertension, Onset Age: 72 Cerebrovascular accident Mother , Age 78 and had leukemia her complicated of pneumonia Family history of malignant neoplasm Patient's mother is , Onset Age: 71 Sibling Aneurysm Diabetes mellitus Congestive heart failure Social History Social History Smoking packs per day: 1 Smoking cigarettes per day: 20.0 Years smoked: 8 Smoking pack-years: 8.00 Smoking status: Never smoker Tobacco type: cigarettes Smoking end date: 11/21/89 Additional smoking assessment comments: quit about 25 yrs ago Alcohol intake: never Substance use: never Gender identity (if verbalized by the patient): Male Spiritual care concerns: No Exam Const: General: no acute distress and alert Orientation/consciousness: patient oriented x3 HENMT: Head: normal to inspection Neck: Neck: normal visual inspection and no lymphadenopathy Chest: Chest palpation & inspection: no tenderness Resp: Effort & Inspection: normal respiratory effort Auscultation: clear to auscultation bilaterally, no rales, no rhonchi and no wheezes Cardio: Jugular venous distension: no JVD Rate: tachycardic Rhythm: regular rhythm Heart sounds: no murmurs GI: Inspection: non-distended GI Palp: Yes Soft to palpation and No Tenderness to palpation present (GI) Skin: General skin exam: normal color Neuro: General: patient oriented x3, moves all extremities and CN's II-XI intact bi
--- NOTE | 2020-06-29 21:05 | ECG_ITS ---
Measurements Intervals [place] Rate: 108 P: -25 VA: 192 QRS: -37 QRSD: 112 T: 119 QT: 327 QTc: 440 Interpretive Statements SINUS TACHYCARDIA LEFT AXIS DEVIATION BORDERLINE AV CONDUCTION DELAY INTRAVENTRICULAR CONDUCTION DELAY ST-T WAVE ABNORMALITY IN HIGH LATERAL LEADS- CONSIDER ISCHEMIA BASELINE ARTIFACT- I, III, AVL ABNORMAL ECG Electronically Signed On 06-30-2020 7:02:15 CDT by Mina Whitaker D.O.
[2020-06-29 21:17] VITALS: PULSE 110
[2020-06-29] MEDS: METOPROLOL TARTRATE INJ 5 MG/5 ML VIAL IV PUSH (21:17)
[2020-06-29 21:18] LABS: Basophils Absolute Auto 0.1 K/mm3 (0.0-0.1); Basophils Percent Auto 0.6 % (0.2-1.2); Eosinophils Absolute Auto 0.1 K/mm3 (0-0.3); Eosinophils Percent Auto 0.5 % (0-4.4); Hematocrit 26.9 % (42.0-52.0); Hemoglobin 9.1 g/dL (14.0-18.0); Immature Granulocyte Absolute 0.06 K/mm3 (0.00-0.031); Immature Granulocyte Percent A 0.6 % (0-0.5); Lymphocytes Absolute Auto 1.11 K/mm3 (0.9-3.2); Lymphocytes Percent Auto 11.1 % (18.3-44.2); Mean Corpuscular HGB Conc 33.8 g/dl (32-36); Mean Corpuscular Hemoglobin 31.6 pg (26-34); Mean Corpuscular Volume 93.4 fl (80-100); Mean Platelet Volume 9.7 fl (7.4-10.4); Monocytes Absolute Auto 0.9 K/mm3 (0.1-0.6); Monocytes Percent Auto 8.7 % (2.6-8.5); Neutrophils Absolute Auto 7.8 K/mm3 (1.3-6.7); Neutrophils Percent Auto 78.5 % (45.5-73.1); Platelet Count Result 249 k/mm3 (150-375); Red Blood Count 2.88 M/mm3 (4.6-6.20); Red Cell Distribution Width 13.2 % (11.5-14.5)
[2020-06-29 21:29] VITALS: BP 108/77; PULSE 89; RESP 17; O2SAT 100
[2020-06-29 21:30] LABS: Prothrombin Time 13.2 Seconds (11.1-14.7)
[2020-06-29 21:31] LABS: Partial Thromboplastin Time 52.4 SECONDS (22.3-36.8)
[2020-06-29 21:33] LABS: Anion Gap 11 mmol/L (8-16); Blood Urea Nitrogen 74 mg/dL (9-20); Calcium 11.2 mg/dL (8.4-10.2); Carbon Dioxide 24 mmol/L (22-30); Chloride 97 mmol/L (98-107); Estimated CRCL calculation 15 ml/min; Estimated Glomerular Filt Rate 9; Glucose 183 mg/dL (75-110); Potassium 4.4 mmol/L (3.4-5.0); Sodium 132 mmol/L (137-145)
[2020-06-29 21:57] LABS: Troponin I 0.828 ng/mL (0.000-0.034)
[2020-06-29 22:08] VITALS: BP 109/70; PULSE 79; RESP 13; O2SAT 100
[2020-06-29] MEDS: HEPARIN SODIUM 5,000 UNITS/ML VIAL 4000 UNITS IV PUSH (22:14)
[2020-06-29 23:11] VITALS: BP 115/69; PULSE 85; RESP 18; O2SAT 99
[2020-06-29] MEDS: HEPARIN SOD/D5W 100 UNITS/ML 25,000 UNITS/250 ML BAG 10 UNITS IV CONT (23:32)
[2020-06-29] MEDS: SODIUM CHLORIDE 0.9% IV 1,000 ML 75 ML IV CONT (23:39)
[2020-06-29] MEDS: NITROGLYCERIN OINTMENT 1 INCH DOSE TRANSDERM (23:40)
--- NOTE | 2020-06-29 23:44 | ADMGEN ---
This patient, Sal Duarte, was admitted to IMU Room 213-01 at 2325. Patient/family oriented to hospital policies and general routines including ID bracelet, bed and alarms, visiting hours, pain management, procedures, bathroom and other care routines, personal items, smoking policy, room service/diet, and visiting hours. Valuables list has been completed. Information on how to activate the Rapid Response Team has been discussed. Patient/Family are encouraged to report perceived risks to care and to ask questions if they do not understand what they are told or what they should do.
[2020-06-29 23:45] VITALS: BMI 31.3
[2020-06-30] VITALS (14 sets, daily range): BP systolic 113–146; BP diastolic 61–93; PULSE 92–115; RESP 12–18; TEMP 36.1–36.7; O2SAT 98–100
--- NOTE | 2020-06-30 01:33 | PM.IMHP ---
H&P: HPI History of Present Illness Date/Time: 06/30/20 02:00 Chief complaint: chest pain Narrative: Sal Duarte is a 70 year old male with a past medical history including peripheral vascular disease status post bilateral lower extremity amputations, coronary artery disease and stage 5 chronic kidney diseasewho presented to the ER via EMS with chest pain. he has a history of a DC in 2009 with proximal LAD drug-eluting stent. He presented to the hospital in May and had a nuclear stress test which demonstrated only mild reversible defect. He reports that he was asymptomatic until around 5:00 p.m. on the . At that time he began having some chest pressure that he thought was due to GERD. He tried to take some antacids without relief in his symptoms. He tried to sit the head of his bed up but his symptoms got worse. It was followed shortly thereafter by pain radiating down the left arm. His pain also radiated up into his neck. He reported that the pain in left arm was quite severe in an 8/10 in intensity. He took 4 nitros with some mild decrease in his pain Down to 5/10 after the 4th nitro. Then a little bit later in the evening he had a recurrence of his chest pain at which time he took 2 more nitros. When his pain persisted he had his son called EMS. In route to the hospital the patient refused aspirin therapy but then did take a full-dose aspirin when he arrived to the ER. He is on metoprolol b.i.d. at home. He denied any diaphoresis, nausea, or lightheadedness with his symptoms. He did have some shortness of breath along with the chest pain. His symptoms were similar to his prior cardiac events. the patient also reports that he was having some low right-sided back pain over the last couple of days. He states that he never got out of bed on Tuesday due to his discomfort. He did not have anything to eat on Tuesday. He denied any nausea or vomiting. He reports feeling hungry. he has a history of bilateral below-knee amputations but has not noticed any swelling in his stumps. He is for the most part sedentary since his 2nd amputation in 2010. For the most part the patient seemed alert and oriented. However he tried due to tell me that his last amputation was last year. he also stated that he had cataract surgery last year which actually occurred about 13 years ago according to prior records. when I started the interview with patient he reported that he was still having 3/10 left arm pain. He reported that his chest pressure was no longer present. However, as I was getting ready to leave the patient's room patient suddenly developed severe substernal chest discomfort. A stat EKG was performed which demonstrated slight worsening of ST depressions in V2 and V3. The patient was already on nitro paste and a heparin drip. Subsequently I called Dr. Judie Arrieta from Cardiology who agreed the patient will benefit from transfer to the ICU for a nitro drip. The spouting installer was consultedand notified of the patient's transfer. Review of Systems Review of Systems: Narrative: 12 systems were reviewed with pertinent positives and negatives per HPI. Except as documented in the HPI, all other systems were reviewed and are negative. [facility] Past Medical History Medical History (Updated 06/30/20 @ 01:54 by Karli Flanagan DO) BPH associated with nocturia CAD (coronary artery disease) with proximal LAD drug-eluding stent in 2009. Lexiscan stress test 05/23/2020 demonstrated moderate severity non reversible infarct involving the mid and basilar inferior and inferior lateral segments at the apical lateral segment. Small region of mild reversible ischemia involving the mid and basal anterior lateral segments, EF 49% CKD (chronic kidney disease), stage V managed by Dr. Sachin Joseph Diabetic nephropathy Diabetic retinopathy Dyslipidemia Gout HTN (hypertension), benign Peripheral neuropathy Type 2 diabetes mellitus with other circulatory co
--- NOTE | 2020-06-30 02:29 | ECG_ITS ---
Measurements Intervals [place] Rate: 99 P: -80 AL: 202 QRS: -25 QRSD: 114 T: 107 QT: 331 QTc: 426 Interpretive Statements SINUS OR ECTOPIC ATRIAL RHYTHM BORDERLINE AV CONDUCTION DELAY INTRAVENTRICULAR CONDUCTION DELAY ST-T WAVE ABNORMALITY IN HIGH LATERAL LEADS- CONSIDER ISCHEMIA BASELINE WANDER- I, II, AVR, AVF, V2 ABNORMAL ECG Electronically Signed On 06-30-2020 7:58:01 CDT by Mina Whitaker D.O.
--- NOTE | 2020-06-30 03:04 | PC.NURSE ---
06/30/20:0245: PATIENT TRANSFERRED TO ICU AFTER COMPLAINING OF SEVERE INTERMITTED CHEST PRESSURE AND PAIN RADIATING DOWN LT ARM, WHICH STARTED WHILE TALKING TO DR HARRIS. EKG WAS DONE AND PATIENT MOVED TO ICU FOR POSSIBLE NITRO GTT.
[2020-06-30] MEDS: NITROGLYCERIN/D5W 200 MCG/ML 50 MG/250 ML BTL IV CONT (03:07)
--- NOTE | 2020-06-30 03:25 | PC.NURSE ---
Patient transferred to ICU 11 from IMU at 0245 via hospital bed. Nurse at bedside. Patient c/o no chest pain at this time. Patients states pain radiates down left arm from the wrist to elbow. No n/v. No sob.
--- NOTE | 2020-06-30 05:48 | PM.EVENT ---
Event Note Event Note Event Note: Pt admitted w/ NSTEMI, h/o LAD stent, CKD stage 5 not yet on dialysis, bilateral BKAs. Started on heparin on admission. Called by Dr. Flanagan last night, pt having crushing CP, transferred to ICU and put on TNG gtt. She texted me that EKG showed worsening ST depression V2 and V3. Pt appeared to have relief of CP but awoke a little while ago c/o severe 10/10 CP. RN has titrated TNG gtt to 50 mcg, SBP 106, CP reduced to 6/10. Trop >3 and CP persists. Attempted to have New EKG was faxed to me w/o initial success, finally rec'd it, shows a little ST elevation in lead III and poss AVF, AVR and St depressions V2-V6 which are worse. Pt has severe unstable angina refractory to tx, poss STEMI. Asked RN to call cath team in, let pt know we are to proceed w/ cath and he will be started on HD this admission, and I called the interventionalist building and construction manager, Dr. Ley, to come in for the intervention.
[2020-06-30 06:07] LABS: Basophils Percent Auto 0.4 % (0.2-1.2); Eosinophils Percent Auto 0.3 % (0-4.4); Hematocrit 24.6 % (42.0-52.0); Hemoglobin 8.4 g/dL (14.0-18.0); Immature Granulocyte Absolute 0.06 K/mm3 (0.00-0.031); Immature Granulocyte Percent A 0.6 % (0-0.5); Lymphocytes Absolute Auto 1.28 K/mm3 (0.9-3.2); Lymphocytes Percent Auto 13.8 % (18.3-44.2); Mean Corpuscular HGB Conc 34.1 g/dl (32-36); Mean Corpuscular Hemoglobin 31.7 pg (26-34); Mean Corpuscular Volume 92.8 fl (80-100); Monocytes Absolute Auto 0.7 K/mm3 (0.1-0.6); Neutrophils Absolute Auto 7.1 K/mm3 (1.3-6.7); Neutrophils Percent Auto 76.9 % (45.5-73.1); Platelet Count Result 240 k/mm3 (150-375); Red Blood Count 2.65 M/mm3 (4.6-6.20); Red Cell Distribution Width 13.2 % (11.5-14.5); White Blood Count 9.3 K/mm3 (4.5-10.0)
--- NOTE | 2020-06-30 06:43 | PM.CNCAR ---
Assessment and Plan Additional Plan NSTEMI, Hx of LAD stent 2009, hx of CKD stage V (creatinine 6), hx of PVD s/p bilateral LE amp, HTN, plan emergent LHC, DAPT Statin, B-angely, NTg infusion. Consult nephro for dialysis History of Present Illness History of Present Illness Consult date/time: 06/30/20 06:43 Consult reason: chest pain Reason For Visit: chest pain Narrative: patient presented yesterday with acute sub-sternal sever chest pain/pressure, radiates to left arm, improved partially with NTG and had recurrent episode that again partially resolved with NTG. His pain improved by time he arrived to ER. He was admitted to hospital with NSTEMI and new ST depression in ant leads. He was started on heparin but later yesterday he developed more episodes of chest pain and transferred to ICU for NTG infusion. He recurrent sever episodes of chest pain in ICU despite increasing NTG infusion. This secondary set up man nurses noted new ST depression on Tele and repeat EKG shows worsening ST depression Review of Systems Review of Systems: All systems reviewed & are unremarkable except as noted in HPI and below PMFSH Past Medical History Medical History (Updated 06/30/20 @ 01:54 by Karli Flanagan DO) BPH associated with nocturia CAD (coronary artery disease) with proximal LAD drug-eluding stent in 2009. Lexiscan stress test 05/23/2020 demonstrated moderate severity non reversible infarct involving the mid and basilar inferior and inferior lateral segments at the apical lateral segment. Small region of mild reversible ischemia involving the mid and basal anterior lateral segments, EF 49% CKD (chronic kidney disease), stage V managed by Dr. Sachin Joseph Diabetic nephropathy Diabetic retinopathy Dyslipidemia Gout HTN (hypertension), benign Peripheral neuropathy Type 2 diabetes mellitus with other circulatory complications Surgical History Surgical History (Updated 06/30/20 @ 03:18 by Karli Flanagan DO) History of bilateral cataract extraction History of colonoscopy (~06/2018) performed by Dr. Masters: demonstrated internal and external hemorrhoids, hypertrophied anal papillae and anal skin tag History of esophagogastroduodenoscopy (EGD) with duodenal ulcers in 2010 History of left below knee amputation 2010 History of right below knee amputation 1998 Family History Family History (Updated 06/30/20 @ 01:48 by Karli Flanagan DO) Father , Age 70 Hypertension, Onset Age: 72 Cerebrovascular accident Diabetes mellitus Obesity Hearing loss Mother , Age 78 Leukemia complicated by pneumonia Sibling Aneurysm Diabetes mellitus Congestive heart failure Social History Social History (Updated 06/30/20 @ 01:50 by Karli Flanagan DO) Social History: Primary care physician: Dr. Haley Rosenberg Code status: Full code Healthcare power of environmental attorney: Jorge Luis Conway Smoking packs per day: 1 Smoking cigarettes per day: 20.0 Years smoked: 8 Smoking pack-years: 8.00 Smoking status: Former smoker Tobacco type: cigarettes Smoking end date: 11/21/89 Alcohol intake: never Substance use: never Substance use type: does not use Gender identity (if verbalized by the patient): Male Spiritual care concerns: No Meds Home Medications and Allergies Home Medications Medication Instructions Recorded Confirmed Type acetaminophen 500 mg capsule 1,000 mg PO Q6H PRN cap 11/28/19 06/29/20 History amlodipine 5 mg tablet 5 mg PO DAILY 11/28/19 06/29/20 History aspirin 81 mg tablet,delayed 81 mg PO DAILY 11/28/19 06/29/20 History release multivitamin 1 tablet PO DAILY 11/28/19 06/29/20 History tamsulosin 0.4 mg capsule 0.4 mg PO DAILY #90 cap 11/28/19 06/29/20 Rx ascorbic acid (vitamin C) 250 mg 250 mg PO BIDWM 12/04/19 06/29/20 History tablet ferrous sulfate 325 mg (65 mg 325 mg PO BIDWM 12/04/19 06/29/20 History iron) tablet lisinopril 10 mg tablet 2
--- NOTE | 2020-06-30 06:55 | WPDMODSED ---
Moderate Sedation Note-Pt Data Patient Data Allergies Allergy/AdvReac Type Severity Reaction Status Date / Time morphine Allergy Severe Stopped Verified 06/05/20 08:52 Breathing Home Medications Medication Instructions Recorded Confirmed Type acetaminophen 500 mg capsule 1,000 mg PO Q6H PRN cap 11/28/19 06/29/20 History amlodipine 5 mg tablet 5 mg PO DAILY 11/28/19 06/29/20 History aspirin 81 mg tablet,delayed 81 mg PO DAILY 11/28/19 06/29/20 History release multivitamin 1 tablet PO DAILY 11/28/19 06/29/20 History tamsulosin 0.4 mg capsule 0.4 mg PO DAILY #90 cap 11/28/19 06/29/20 Rx ascorbic acid (vitamin C) 250 mg 250 mg PO BIDWM 12/04/19 06/29/20 History tablet ferrous sulfate 325 mg (65 mg 325 mg PO BIDWM 12/04/19 06/29/20 History iron) tablet lisinopril 10 mg tablet 20 mg PO BID 12/04/19 06/29/20 History nitroglycerin 0.4 mg sublingual 0.4 mg SUBLINGUAL Q5M PRN #50 12/28/19 06/29/20 Rx tablet tablet simvastatin 10 mg PO HS 05/22/20 06/29/20 History isosorbide mononitrate 30 mg PO QAM #30 tablet 05/23/20 06/29/20 Rx allopurinol 100 mg PO DAILY 06/29/20 06/29/20 History famotidine 20 mg PO BID 06/29/20 06/29/20 History glipizide 5 mg PO DAILY 06/29/20 06/29/20 History linagliptin [Tradjenta] 5 mg PO DAILY 06/29/20 06/29/20 History metoprolol tartrate 50 mg PO BID 06/29/20 06/29/20 History Current Medications: Active Medications Acetaminophen (Tylenol Tablet) 1,000 mg PO Q6H PRN PRN Reason: Pain (Scale Score 1-3) Allopurinol (Zyloprim) 100 mg PO DAILY@0800 [facility] Amlodipine Besylate (Norvasc) 5 mg PO DAILY BELL Ascorbic Acid (Vitamin C) 250 mg PO BIDWM BELL Aspirin (Aspirin Ec) 81 mg PO DAILY [facility] Dextrose (Dextrose 50% Syringe) 12.5 gm IV PUSH PRN PRN; Protocol PRN Reason: Hypoglycemia Famotidine (Pepcid) 20 mg PO BID [facility] Ferrous Sulfate (Ferrous Sulfate) 324 mg PO BIDWM [facility] Glipizide (Glucotrol) 5 mg PO DAILY@0630 [facility] Glucagon (Glucagon For Inj) 1 mg IM PRN PRN; Protocol PRN Reason: Hypoglycemia Glucose (Glutose 15) 15 gm PO PRN PRN; Protocol PRN Reason: Hypoglycemia Heparin Sodium (Porcine) (Heparin Sodium) 4,000 units IV PUSH PRN PRN PRN Reason: aPTT less than 55 seconds Heparin Sodium (Porcine) (Heparin Sodium) 4,000 units IV PUSH PRN PRN PRN Reason: aPTT 55 - 70 seconds Heparin Sodium/Dextrose (Heparin Sodium/D5w 100 Units/Ml) 25,000 units in 250 mls @ 10 mls/hr IV CONT .Q24H [facility]; Protocol Last Admin: 06/29/20 23:32 Dose: 1,000 units/hr, 10 mls/hr Documented by: Sodium Chloride (Normal Saline Iv) 1,000 mls @ 75 mls/hr IV CONT .[id number] [facility] Last Admin: 06/29/20 23:39 Dose: 75 mls/hr Documented by: Dextrose (Dextrose 5% 1,000 Ml) 1,000 mls @ 100 mls/hr IVPB PRN PRN; Protocol PRN Reason: Hypoglycemia Nitroglycerin/Dextrose (Nitroglycerin In 5% Dextrose 50 Mg) 50 mg in 250 mls @ 3 mls/hr IV CONT .Q24H [facility]; Protocol Last Titration: 06/30/20 03:45 Dose: 10 mcg/min, 3 mls/hr Documented by: Insulin Aspart (Novolog) 2 - 5 units SUB-Q TIDWM [facility]; Protocol Isosorbide Mononitrate (Imdur) 30 mg PO QAM [facility] Lisinopril (Prinivil) 20 mg PO BID [facility] Metoprolol Tartrate (Lopressor) 50 mg PO Q12HR [facility] Nitroglycerin (Nitroglycerin Oint 1 Inch) 1 inch TRANSDERM Q6HR [facility] Last Admin: 06/29/20 23:40 Dose: 1 inch Documented by: Non-Formulary Medication (Linagliptin [Tradjenta]) 5 mg PO DAILY [facility] Stop: 07/30/20 09:01 Simvastatin (Zocor) 10 mg PO HS BELL Tamsulosin HCl (Flomax) 0.4 mg PO DAILY BELL Sedation/Anesthesia: No previous sedation/anesthesia problems (including family history). [facility] Past Medical History Medical History (Updated 06/30/20 @ 01:54 by Karli Flanagan DO) BPH associated with nocturia CAD (coronary artery disease) with proximal LAD drug-eluding stent in 2009. Lexiscan stress test 05/23/2020 demonstrated moderate severity non reversible infarct involving the mid and basilar inferior and inferior lateral segments at the apical lateral segment. Small region
--- NOTE | 2020-06-30 06:56 | WPDCARDPROC ---
Cardiac Cath Procedure Note Date of procedure:: 06/30/20 Performing physician:: Amaury Ley MD Indication:: NSTEMI Brief clinical history:: 70 yrs old male with Hx of CAD, presented with acute sever and recurrent chest pain despite heparin and NTG infusion. Procedure Procedure performed:: C Coronary angiogram Sedation/Medication given:: Versed and fentanyl Access site:: Rt common femoral artery Estimated blood loss:: 20 ml Procedure note:: Access obtained with fluoroscopy and US guidance, using modified Seildinger technique Coronary angiogram done with XB and JR 4, LHC done with JR4 Hemodynamic: 90/40, LVEDP 20 Findings:: Coronary angiogram findings 1. Left main: distal left main 40% hazziny lesion possible thrombus, left main gives LAD and LCX 2. LAD: patent stent in proximal LAD and diffuse 70% stenosis in mid to distal LAD. LAD gives one large diagonal and has ostial 40% stenosis. 3. LCX: Proximal 99% subtotal occlusion, LCx gives one large OM. remaining part of LCX and OM are free of obstructive disease 4. RCA: large dominant vessel and distal RCA 99% lesion. remaining part of RCA and PDA with no obstructive disease. Conclusion:: Moderate left main disease with hazy lesion, possible thrombus Moderate diffuse disease in LAD sever obstructive disease in LCX and RCA Recommendation: IABP and transfer for cardiac surgery consult
[2020-06-30 07:00] LABS: Partial Thromboplastin Time 169.8 SECONDS (22.3-36.8)
--- NOTE | 2020-06-30 08:04 | WPDCARDPROC ---
Cardiac Cath Procedure Note Date of procedure:: 06/30/20 Performing physician:: Nitin Wolfe MD Indication:: Acute coronary syndrome with multivessel coronary disease and left main involvement patient just completed diagnostic coronary angiography and was found to have critical disease as described above and recommendation is to deploy a balloon pump in anticipation of transferring this patient either for surgery or high-risk PCI Brief clinical history:: this is a 70-year-old man with a history of coronary disease and previous coronary intervention 10 years ago. He entered the hospital with symptoms compatible with acute coronary syndrome and has significant anterolateral ST segment depression. Emergency angiography was just completed demonstrating an on stable thrombotic lesion in the left main coronary artery, moderate disease in the proximal LAD, high-grade subtotal disease in the proximal circumflex and high-grade subtotal stenosis in the distal RCA. Unfortunately patient is also a bilateral [id number] amputee and is therefore a very difficult clinical situation regarding revascularization strategy. Unfortunately he also has advanced chronic kidney disease with a creatinine of 6 at baseline. Procedure Procedure performed:: Insertion of intra-aortic balloon pump Sedation/Medication given:: no additional sedation given Access site:: right femoral access which had already been a established from diagnostic angiography Estimated blood loss:: additional blood loss of 10-15 cc Procedure note:: the 6 Wallisian diagnostic sheath was in the right common femoral artery and was withdrawn over a 0.035 guidewire. The 8 Wallisian balloon pump sheath was then placed in the femoral artery. An intra-aortic balloon pump was advanced over the guidewire to the thoracic aorta with the distal marker placed just below the left subclavian artery. The balloon pump was filled and 1-1 counterpulsation was established. The patient was already on intravenous heparin from the ICU and was adequately heparinized with a PTT of 164. Findings:: Uncomplicated deployment of the intra-aortic balloon counterpulsation pump Conclusion:: critically ill 70-year-old man with multivessel coronary disease up fortunately with significant left main involvement to requires revascularization. Either very high-risk PCI versus CABG need to be considered and patient will need to be transferred to a tertiary care center for revascularization strategy. Nitin Wolfe MD [facility]
[2020-06-30] MEDS: glipiZIDE 5 MG TABLET PO (10:41)
[2020-06-30] MEDS: ASCORBIC ACID 250 MG TABLET PO (10:42)
[2020-06-30] MEDS: ASPIRIN 81 MG ENTERIC TABLET PO (10:43)
[2020-06-30] MEDS: ISOSORBIDE MONONITRATE 30 MG TAB.ER.24H PO (10:43)
[2020-06-30] MEDS: lisinopriL 20 MG TABLET PO (10:43)
[2020-06-30] MEDS: FAMOTIDINE 20 MG TABLET PO (10:43)
[2020-06-30] MEDS: amLODIPine BESYLATE 5 MG TABLET PO (10:44)
[2020-06-30] MEDS: FERROUS SULFATE 324 MG TABLET PO (10:44)
[2020-06-30] MEDS: TAMSULOSIN HCL 0.4 MG CAPSULE PO (10:45)
[2020-06-30] MEDS: METOPROLOL TARTRATE 50 MG TAB PO (10:45)
[2020-06-30 11:01] LABS: Glucose Point of Care 169 (65-105)
--- NOTE | 2020-06-30 11:13 | WPDCNINT ---
Assessment and Plan Assessment and plan (1) Non-ST elevation NV (NSTEMI): Code(s): I21.4 - Non-ST elevation (NSTEMI) myocardial infarction Status: Acute Assessment and Plan: status post cardiac catheterization and intra-aortic balloon pump placement patient has Moderate left main disease with hazy lesion, possible thrombus , Moderate diffuse disease in LAD, severe obstructive disease in LCX and RCA case discussed with Dr. Wolfe patient will be transferred to outside hospital for evaluation for CABG or high risk PCI augmented blood pressure adequate at this time and chest pain has resolved continue hemodynamic monitoring and support until patient is transferred heparin infusion aspirin, beta-angely and statin (2) Cardiogenic shock: Code(s): R57.0 - Cardiogenic shock Status: Acute (3) Type 2 diabetes mellitus with hyperglycemia, without long-term current use of insulin: Code(s): E11.65 - Type 2 diabetes mellitus with hyperglycemia Status: Acute Assessment and Plan: patient is on insulin and p.o. diabetic medication I will discontinued p.o. medications and patient is NPO at this time (4) CAD (coronary artery disease): Code(s): I25.10 - Atherosclerotic heart disease of [place] coronary artery without angina pectoris Status: Acute (5) HTN (hypertension), benign: Code(s): I10 - Essential (primary) hypertension Status: Chronic Assessment and Plan: on beta-angely and Norvasc blood pressure controlled off nitroglycerin infusion (6) CKD (chronic kidney disease), stage V: Code(s): N18.5 - Chronic kidney disease, stage 5 Status: Chronic Assessment and Plan: patient will likely need hemodialysis hold AMANDA-inhibitor Additional Plan DVT prophylaxis - on heparin infusion Nutrition - NPO Code Status - Full Code patient he is being transferred to outside hospital as soon as bed is available Total Critical Care Time - 30 minutes Due to a high probability of clinically significant, life threatening deterioration, the patient required my highest level of preparedness to intervene emergently and I personally spent this critical care time directly and personally managing the patient. This critical care time included obtaining a history; examining the patient; pulse oximetry; ordering and review of studies; arranging urgent treatment with development of a management plan; evaluation of patient's response to treatment; frequent reassessment; and discussions with other providers. It was exclusive of separately billable procedures and treating other patients and teaching time. Please see Assessment and Plan section and the rest of the note for further information on patient assessment and treatment Optimization Analyst Consult Note Consult date: 06/30/20 Time Seen: 10:00 HPI: Sal Duarte is a 70 year old male with past medical history of diabetes, CKD, PAD status post bilateral BKA presented with chief complaint of chest pain. he had nuclear stress test in May which showed only mild reversible defect. chest pain started around 5:00 p.m. yesterday. He was admitted with non STEMI. he continued to have chest pain and was started on nitroglycerin and heparin infusion. Cardiology was consulted. despite these measures patient's chest pain worsened along with changes in EKG and Cardiology was notified early in the morning. patient was taken to optical lab technician which showed Findings:: Coronary angiogram findings 1. Left main: distal left main 40% hazziny lesion possible thrombus, left main gives LAD and LCX 2. LAD: patent stent in proximal LAD and diffuse 70% stenosis in mid to distal LAD. LAD gives one large diagonal and has ostial 40% stenosis. 3. LCX: Proximal 99% subtotal occlusion, LCx gives one large OM. remaining part of LCX and OM are free of obstructive disease 4. RCA: large dominant vessel and distal RCA 99% lesion. remaining part of RCA an
--- NOTE | 2020-06-30 15:33 | PC.NURSE ---
The patient went to paving and surfacing labourer prior to start of day shift. I received report on the patient from Libby Webster RN. Patient had a balloon pump placed in paving and surfacing labourer and was cared for by Jairon Tank Truck Operator RN for the remainder of his time at [facility]. The patient was transported by [facility] with Marilynn De La O us marketing director to [facility] with balloon pump in place.
--- NOTE | 2020-06-30 16:50 | PM.TDS ---
Transfer Discharge Sum: Prov Provider Date of admission: 06/29/20 22:29 Primary care physician: Haley Rosenberg, MD Admitting clinician: Karli Flanagan DO Consults: 06/29/20 22:30 Consult to Physician Routine Comment: Consulting Provider: Judie Arrieta Reason for consultation: NSTEMI Has provider been notified: Yes 06/30/20 Consult to Physician Routine Comment: Consulting Provider: Vee Gutierrez on call/MD group to consult: Dr. Gutierrez Reason for consultation: non STEMI Has provider been notified: Yes DS: Admitting Diagnosis Admitting Diagnosis Admitting Diagnosis: Non-ST elevation (NSTEMI) myocardial infarction DS: Discharge Diagnosis Discharge Diagnosis (1) Non-ST elevation PR (NSTEMI): Code(s): I21.4 - Non-ST elevation (NSTEMI) myocardial infarction Status: Acute Assessment and Plan: Patient's troponin has climbed significantly. He began to have recurrent chest pain despite being on heparin drip and nitropaste. The patient was transferred to the ICU for nitro drip. Patient's case was discussed with Cardiology. [facility] performed showin. Left main: distal left main 40% hazziny lesion possible thrombus, left main gives LAD and LCX 2. LAD: patent stent in proximal LAD and diffuse 70% stenosis in mid to distal LAD. LAD gives one large diagonal and has ostial 40% stenosis. 3. LCX: Proximal 99% subtotal occlusion, LCx gives one large OM. remaining part of LCX and OM are free of obstructive disease 4. RCA: large dominant vessel and distal RCA 99% lesion. remaining part of RCA and PDA with no obstructive disease. Conclusion:: Moderate left main disease with hazy lesion, possible thrombus; Moderate diffuse disease in LAD; Sever obstructive disease in LCX and RCA. Recommendation: IABP and transfer for cardiac surgery consult Insertion of intra-aortic balloon pump performed. Patient transferred to tertiary center. (2) Diabetes: Qualifiers: Diabetes mellitus complication detail: with other circulatory complications Diabetes mellitus complication status: with circulatory complication Diabetes mellitus longterm insulin use: without longterm use Diabetes mellitus type: type 2 Qualified Code(s): E11.59 - Type 2 diabetes mellitus with other circulatory complications Code(s): E11.9 - Type 2 diabetes mellitus without complications Status: Chronic Assessment and Plan: Glucoses within goal range for hospitalized patient. (3) CKD (chronic kidney disease), stage V: Code(s): N18.5 - Chronic kidney disease, stage 5 Status: Chronic Assessment and Plan: His creatinine was at baseline of 6.1. (4) Cardiogenic shock: Code(s): R57.0 - Cardiogenic shock Status: Acute Assessment and Plan: As above. (5) Anemia: Code(s): D64.9 - Anemia, unspecified Status: Acute Assessment and Plan: Hgb low at the 8-9 range. Probbaly related to CKD. (6) Hypercalcemia: Code(s): E83.52 - Hypercalcemia Status: Acute Assessment and Plan: Calcium normal in May but now at 11.2. Will need further workup if persistent hypercalcemia. Transfer Discharge Sum: Med Medications Active and Home Medications: Home Medications acetaminophen 500 mg capsule 1,000 mg PO Q6H PRN cap 11/28/19 [History Confirmed 06/29/20] amlodipine 5 mg tablet 5 mg PO DAILY 11/28/19 [History Confirmed 06/29/20] aspirin 81 mg tablet,delayed release 81 mg PO DAILY 11/28/19 [History Confirmed 06/29/20] multivitamin 1 tablet PO DAILY 11/28/19 [History Confirmed 06/29/20] tamsulosin 0.4 mg capsule 0.4 mg PO DAILY #90 cap 11/28/19 [Rx Confirmed 06/29/20] ascorbic acid (vitamin C) 250 mg tablet 250 mg PO BIDWM 12/04/19 [History Confirmed 06/29/20] ferrous sulfate 325 mg (65 mg iron) tablet 325 mg PO BIDWM 12/04/19 [History Confirmed 06/29/20] lisinopril 10 mg tablet 20 mg PO BID 12/04/19 [Hi
== END 2020-06-30 11:30 | disposition short-term general hospital (02) | DRG 271 ==
LOC: ANHED 22:38 → ANHIMU 23:01 → ANHICU 06-30 03:09 → ANHIMU 07-03 11:58
PROVIDERS: Internal Medicine Interventional Cardiology; Specialist; Admitting Provider Internal Medicine; Emergency Provider Emergency Medicine; PCP Family Medicine; Visit Provider Internal Medicine
PROC: 4A023N7 Measurement of Cardiac Sampling and Pressure, Left Heart, Percutaneous Approach (ICD-10-PCS; CPT 93452; principal; 2020-06-30 06:30)
PROC: 5A02210 Assistance with Cardiac Output using Balloon Pump, Continuous (ICD-10-PCS; 2020-06-30 06:30)
DX: I21.4 Non-ST elevation (NSTEMI) myocardial infarction (principal); N18.5 Chronic kidney disease, stage 5; I12.0 Hypertensive chronic kidney disease with stage 5 chronic kidney disease or end stage renal disease; I25.10 Atherosclerotic heart disease of native coronary artery without angina pectoris; E11.22 Type 2 diabetes mellitus with diabetic chronic kidney disease; N40.1 Benign prostatic hyperplasia with lower urinary tract symptoms; R35.1 Nocturia; M1A.9XX0 Chronic gout, unspecified, without tophus (tophi); E11.51 Type 2 diabetes mellitus with diabetic peripheral angiopathy without gangrene; I73.9 Peripheral vascular disease, unspecified; E11.21 Type 2 diabetes mellitus with diabetic nephropathy; E11.319 Type 2 diabetes mellitus with unspecified diabetic retinopathy without macular edema; E11.65 Type 2 diabetes mellitus with hyperglycemia; E78.5 Hyperlipidemia, unspecified; E83.52 Hypercalcemia; E11.42 Type 2 diabetes mellitus with diabetic polyneuropathy; I25.2 Old myocardial infarction; Z89.511 Acquired absence of right leg below knee; Z89.512 Acquired absence of left leg below knee; Z87.891 Personal history of nicotine dependence; Z95.5 Presence of coronary angioplasty implant and graft; Z98.42 Cataract extraction status, left eye; Z98.41 Cataract extraction status, right eye
CPT/HCPCS: 33967; 36415; 71046; 80048; 84484; 85025; 85610; 85730; 93005; 93458; 96374; 96375; 99291; A9270; C1887; C1894; J1644; J2250; J3010; J7030; J7040

== ENCOUNTER 2020-07-17 18:33 | Emergency (ER) | payer OTHER, SELFPAY ==
--- NOTE | ~2020-07-17 | XR_ITS ---
XR chest 2V 07/17/2020 19:07 Indication: Shortness of breath and weakness. Procedure: AP and lateral views of the chest Comparison: 06/29/2020 Findings: There is left lower lobe airspace disease, consistent with pneumonia. Possible small left e ffusion. Central venous catheter tips in the right atrium. No pneumothorax. No acute osseous abnormal ity. Impression: 1: Left lower lobe airspace disease, compatible with pneumonia. Reviewed, dictated and finalized at location A. Impression: 1: Left lower lobe airspace disease, compatible with pneumonia.
[2020-07-17 18:34] VITALS: BP 146/74; PULSE 106; RESP 21; TEMP 37.4; O2SAT 97
--- NOTE | 2020-07-17 18:44 | ED.GENADULT ---
HPI - General Adult General Chief complaint: Recheck/Abnormal Lab/Rx Stated complaint: Near syncopal Time Seen by Provider: 07/17/20 18:40 History of Present Illness HPI narrative: 70-year-old male presents emergency department via EMS for a syncopal episode. Patient states he has been feeling weak for several weeks, progressively worsening. Patient had dialysis today, went back to his living facility. Patient allegedly had a syncopal episode there. He recently had hemoglobin checked, which was low. Patient states he has a history of anemia, unknown cause. Patient states he has on iron pills currently. He reports black stools from the iron pills. No chest pain or shortness of breath currently no abdominal pain. No nausea or vomiting. Related Data Home Medications Medication Instructions Recorded Confirmed acetaminophen 500 mg capsule 1,000 mg PO Q6H PRN cap 11/28/19 06/29/20 amlodipine 5 mg tablet 5 mg PO DAILY 11/28/19 06/29/20 aspirin 81 mg tablet,delayed 81 mg PO DAILY 11/28/19 06/29/20 release multivitamin 1 tablet PO DAILY 11/28/19 06/29/20 ascorbic acid (vitamin C) 250 mg 250 mg PO BIDWM 12/04/19 06/29/20 tablet ferrous sulfate 325 mg (65 mg 325 mg PO BIDWM 12/04/19 06/29/20 iron) tablet lisinopril 10 mg tablet 20 mg PO BID 12/04/19 06/29/20 simvastatin 10 mg PO HS 05/22/20 06/29/20 allopurinol 100 mg PO DAILY 06/29/20 06/29/20 famotidine 20 mg PO BID 06/29/20 06/29/20 glipizide 5 mg PO DAILY 06/29/20 06/29/20 linagliptin [Tradjenta] 5 mg PO DAILY 06/29/20 06/29/20 metoprolol tartrate 50 mg PO BID 06/29/20 06/29/20 Allergies Allergy/AdvReac Type Severity Reaction Status Date / Time morphine Allergy Severe Stopped Verified 07/17/20 18:58 Breathing Review of Systems Review of Systems: Narrative: CONSTITUTIONAL: Denies fever, chills, or sweats. EYES: Denies visual changes, redness, or discharge. ENT: Denies rhinorrhea, congestion, sore throat, or otalgia. CARDIOVASCULAR: Denies chest pain, palpitations, or edema. RESPIRATORY: Denies cough or dyspnea. GASTROINTESTINAL: Denies abdominal pain, nausea, vomiting, or diarrhea. GENITOURINARY: Denies dysuria or hematuria. SKIN: Denies rash or itching. MUSCULOSKELETAL: Denies back pain, joint pain, or myalgia. NEUROLOGIC: Denies headache, numbness, dizziness. Positive for syncope and weakness PSYCHIATRIC: Denies anxiety or depression. All systems reviewed & are unremarkable except as noted in HPI and below (ROS) [facility] Past Medical History Medical History BPH associated with nocturia CAD (coronary artery disease) with proximal LAD drug-eluding stent in 2009. Lexiscan stress test 05/23/2020 demonstrated moderate severity non reversible infarct involving the mid and basilar inferior and inferior lateral segments at the apical lateral segment. Small region of mild reversible ischemia involving the mid and basal anterior lateral segments, EF 49% CKD (chronic kidney disease), stage V managed by Dr. Sachin Joseph Diabetic nephropathy Diabetic retinopathy Dyslipidemia Gout HTN (hypertension), benign Peripheral neuropathy Type 2 diabetes mellitus with other circulatory complications Surgical History Surgical History History of bilateral cataract extraction History of colonoscopy (~06/2018) performed by Dr. Masters: demonstrated internal and external hemorrhoids, hypertrophied anal papillae and anal skin tag History of esophagogastroduodenoscopy (EGD) with duodenal ulcers in 2010 History of left below knee amputation 2010 History of right below knee amputation 1998 Family History Family History Father , Age 70 Hypertension, Onset Age: 72 Cerebrovascular accident Diabetes mellitus Obesity Hearing loss Mother , Age 78 Leukemia complicated by pneumonia
[2020-07-17 18:46] VITALS: BP 146/74; PULSE 104; RESP 24; O2SAT 98
--- NOTE | 2020-07-17 18:47 | ECG_ITS ---
Measurements Intervals [place] Rate: 105 P: 27 DE: 198 QRS: -34 QRSD: 105 T: -48 QT: 343 QTc: 454 Interpretive Statements SINUS TACHYCARDIA LEFT AXIS DEVIATION LOW QRS VOLTAGE IN PRECORDIAL LEADS INCOMPLETE RIGHT BUNDLE BRANCH BLOCK BORDERLINE R WAVE PROGRESSION, ANTERIOR LEADS NONSPECIFIC T-WAVE ABNORMALITY- DIFFUSE LEADS BASELINE WANDER- II, III, AVR, AVL, AVF, V3 ABNORMAL ECG Electronically Signed On 07-17-2020 21:20:22 CDT by Mina Whitaker D.O.
--- NOTE | 2020-07-17 18:59 | PC.NURSE ---
Unable to put in home medications or verify as sheets received from assisted too light to read. Call to [facility] (or phone answered as [facility]) at [phone] and asked to refax patient's medication sheets.
[2020-07-17 19:15] LABS: Basophils Absolute Auto 0.1 K/mm3 (0.0-0.1); Basophils Percent Auto 0.6 % (0.2-1.2); Eosinophils Absolute Auto 0.1 K/mm3 (0-0.3); Eosinophils Percent Auto 0.9 % (0-4.4); Hematocrit 25.1 % (42.0-52.0); Hemoglobin 8.3 g/dL (14.0-18.0); Immature Granulocyte Absolute 0.08 K/mm3 (0.00-0.031); Immature Granulocyte Percent A 0.7 % (0-0.5); Lymphocytes Absolute Auto 1.16 K/mm3 (0.9-3.2); Lymphocytes Percent Auto 10.1 % (18.3-44.2); Mean Corpuscular HGB Conc 33.1 g/dl (32-36); Mean Corpuscular Hemoglobin 31.1 pg (26-34); Mean Platelet Volume 10.1 fl (7.4-10.4); Monocytes Absolute Auto 1.1 K/mm3 (0.1-0.6); Neutrophils Absolute Auto 8.9 K/mm3 (1.3-6.7); Neutrophils Percent Auto 77.7 % (45.5-73.1); Platelet Count Result 435 k/mm3 (150-375); Red Blood Count 2.67 M/mm3 (4.6-6.20); Red Cell Distribution Width 13.3 % (11.5-14.5); White Blood Count 11.5 K/mm3 (4.5-10.0)
[2020-07-17 19:25] LABS: INR 1.2; Prothrombin Time 14.4 Seconds (11.1-14.7)
[2020-07-17 19:26] LABS: Alanine Aminotransferase 21 U/L (4-50); Albumin Level 3.4 g/dL (3.5-5.1); Alkaline Phosphatase 110 U/L (38-126); Anion Gap 8 mmol/L (8-16); Aspartate Amino Transferase 32 U/L (17-59); Bilirubin,Total 1.5 mg/dL (0.2-1.3); Blood Urea Nitrogen 18 mg/dL (9-20); Calcium 8.4 mg/dL (8.4-10.2); Carbon Dioxide 32 mmol/L (22-30); Chloride 92 mmol/L (98-107); Estimated CRCL calculation 25 ml/min; Estimated Glomerular Filt Rate 20; Glucose 166 mg/dL (75-110); Magnesium 1.7 mg/dL (1.6-2.3); Potassium 3.2 mmol/L (3.4-5.0); Sodium 132 mmol/L (137-145)
[2020-07-17 19:30] VITALS: BP 142/61; PULSE 104; RESP 19; O2SAT 98
--- NOTE | 2020-07-17 19:33 | PC.NURSE ---
Report to [facility], to continue care. Awaiting bed assignment.
[2020-07-17 20:30] VITALS: BP 140/76; PULSE 103; RESP 22; O2SAT 96
[2020-07-17] MEDS: SODIUM CHLORIDE 0.9% IV 500 ML 999 ML IV CONT ×2 (20:44→21:54)
[2020-07-17 21:30] VITALS: BP 127/96; PULSE 102; RESP 19; O2SAT 100
--- NOTE | 2020-07-17 22:40 | PC.NURSE ---
Report called to Maria Elena SHELTON at [facility]--transportation called with approx ETA of 1 hour
[2020-07-17 22:45] VITALS: BP 125/79; PULSE 97; RESP 18; O2SAT 100
--- NOTE | 2020-07-17 23:47 | PC.NURSE ---
Transport ETA now approx additional 45min
[2020-07-18 00:30] VITALS: BP 126/77; PULSE 98; RESP 18; O2SAT 99
[2020-07-18 02:40] VITALS: BP 113/48; PULSE 98; RESP 18; O2SAT 97
== END 2020-07-18 02:40 ==
PROVIDERS: Emergency Provider Emergency Medicine; PCP Family Medicine
DX: J18.9 Pneumonia, unspecified organism (principal); E11.22 Type 2 diabetes mellitus with diabetic chronic kidney disease; E11.59 Type 2 diabetes mellitus with other circulatory complications; I12.0 Hypertensive chronic kidney disease with stage 5 chronic kidney disease or end stage renal disease; N18.5 Chronic kidney disease, stage 5; Z99.2 Dependence on renal dialysis; Z87.891 Personal history of nicotine dependence; Z79.84 Long term (current) use of oral hypoglycemic drugs; I25.10 Atherosclerotic heart disease of native coronary artery without angina pectoris; N40.1 Benign prostatic hyperplasia with lower urinary tract symptoms; R35.1 Nocturia; E11.21 Type 2 diabetes mellitus with diabetic nephropathy; E11.319 Type 2 diabetes mellitus with unspecified diabetic retinopathy without macular edema; D64.9 Anemia, unspecified; Z98.42 Cataract extraction status, left eye; Z98.41 Cataract extraction status, right eye; Z89.512 Acquired absence of left leg below knee; Z89.511 Acquired absence of right leg below knee; Z79.82 Long term (current) use of aspirin
CPT/HCPCS: 36415; 71046; 80053; 83735; 84443; 85025; 85610; 86850; 86900; 86901; 93005; 96361; 96365; 96368; 99284; J0456; J0696; J7040

== ENCOUNTER 2020-08-27 17:47 | Emergency (ER) | payer OTHER, SELFPAY ==
--- NOTE | ~2020-08-27 | XR_ITS ---
EXAMINATION: XR chest 2V DATE: 08/27/2020 18:38 INDICATION: Shortness of breath and dizziness TECHNIQUE: AP and lateral views of the chest are obtained. COMPARISON: 07/17/2020 FINDINGS: The lungs are free of acute opacities. There is no pleural effusion or pneumothorax. The ca rdiomediastinal silhouette is normal. A large bore right internal jugular central venous catheter end s with its tip in the proximal right atrium. 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 There are bridging osteophytes at multiple levels in the spine, consistent with diffuse idi opathic skeletal hyperostosis (DISH). IMPRESSION: 1. No acute cardiopulmonary abnormality. Reviewed, dictated and finalized at location A.
--- NOTE | 2020-08-27 17:48 | ECG_ITS ---
Measurements Intervals [place] Rate: 72 P: 51 LA: 238 QRS: -37 QRSD: 108 T: 232 QT: 416 QTc: 455 Interpretive Statements SINUS RHYTHM WITH FIRST DEGREE AV BLOCK LEFT AXIS DEVIATION LOW QRS VOLTAGE IN PRECORDIAL LEADS CANNOT RULE OUT SEPTAL INFARCT, AGE INDETERMINATE BORDERLINE ST-T WAVE ABNORMALITY- DIFFUSE LEADS ABNORMAL ECG Electronically Signed On 08-27-2020 20:48:13 CDT by Mina Whitaker D.O.
[2020-08-27 18:09] VITALS: BP 128/57; PULSE 72; RESP 18; TEMP 36.3; O2SAT 94
[2020-08-27 18:31] LABS: Basophils Absolute Auto 0.1 K/mm3 (0.0-0.1); Eosinophils Absolute Auto 0.1 K/mm3 (0-0.3); Hematocrit 34.7 % (42.0-52.0); Hemoglobin 10.9 g/dL (14.0-18.0); Immature Granulocyte Absolute 0.04 K/mm3 (0.00-0.031); Immature Granulocyte Percent A 0.6 % (0-0.5); Lymphocytes Absolute Auto 1.16 K/mm3 (0.9-3.2); Lymphocytes Percent Auto 17.2 % (18.3-44.2); Mean Corpuscular HGB Conc 31.4 g/dl (32-36); Mean Corpuscular Hemoglobin 30.5 pg (26-34); Mean Corpuscular Volume 97.2 fl (80-100); Monocytes Absolute Auto 0.5 K/mm3 (0.1-0.6); Monocytes Percent Auto 7.3 % (2.6-8.5); Neutrophils Absolute Auto 4.9 K/mm3 (1.3-6.7); Neutrophils Percent Auto 72.9 % (45.5-73.1); Platelet Count Result 277 k/mm3 (150-375); Red Blood Count 3.57 M/mm3 (4.6-6.20); Red Cell Distribution Width 15.8 % (11.5-14.5); White Blood Count 6.7 K/mm3 (4.5-10.0)
[2020-08-27 18:38] LABS: Anion Gap 10 mmol/L (8-16); Blood Urea Nitrogen 21 mg/dL (9-20); Calcium 10.2 mg/dL (8.4-10.2); Carbon Dioxide 31 mmol/L (22-30); Chloride 94 mmol/L (98-107); Estimated CRCL calculation 26 ml/min; Estimated Glomerular Filt Rate 17; Glucose 130 mg/dL (75-110); Potassium 3.4 mmol/L (3.4-5.0); Sodium 135 mmol/L (137-145)
[2020-08-27 19:54] VITALS: BP 142/66; PULSE 72; RESP 18; TEMP 36.4; O2SAT 100
--- NOTE | 2020-08-27 21:10 | ED.GENADULT ---
HPI - General Adult General Chief complaint: Shortness of Breath/Dyspnea Stated complaint: SOB, Dizzy Time Seen by Provider: 08/27/20 20:49 Source: patient Mode of arrival: ambulatory Limitations: no limitations History of Present Illness HPI narrative: Earlier today. Patient felt that the room was a spinning. Patient reported that the shortness of breath was intermittent usually comes last for few seconds and then go away. Patient reported history of intermittent dizziness but today was more intense than usual. Currently patient having no dizziness, no shortness of breath, no chest pain, no disorientation. His only complaint right now is pain at his bottom from long sitting. Patient on hemodialysis, last one was yesterday, patient reports too much urination in the last few days. Patient denies any fever, chills, nausea, vomiting, chest pain, back pain, headache, coughing. Patient reports no stress lately , Patient reports trouble sleeping in the last few days, and usually he gets generally weak after dialysis and dose probably the underlying cause of his weird symptoms this morning. Related Data Home Medications Medication Instructions Recorded Confirmed acetaminophen 500 mg capsule 1,000 mg PO Q6H PRN cap 11/28/19 06/29/20 amlodipine 5 mg tablet 5 mg PO DAILY 11/28/19 06/29/20 aspirin 81 mg tablet,delayed 81 mg PO DAILY 11/28/19 06/29/20 release multivitamin 1 tablet PO DAILY 11/28/19 06/29/20 ascorbic acid (vitamin C) 250 mg 250 mg PO BIDWM 12/04/19 06/29/20 tablet ferrous sulfate 325 mg (65 mg 325 mg PO BIDWM 12/04/19 06/29/20 iron) tablet lisinopril 10 mg tablet 20 mg PO BID 12/04/19 06/29/20 simvastatin 10 mg PO HS 05/22/20 06/29/20 allopurinol 100 mg PO DAILY 06/29/20 06/29/20 famotidine 20 mg PO BID 06/29/20 06/29/20 metoprolol tartrate 50 mg PO BID 06/29/20 06/29/20 Allergies Allergy/AdvReac Type Severity Reaction Status Date / Time morphine Allergy Severe Stopped Verified 08/27/20 18:15 Breathing Review of Systems Review of Systems: Narrative: CONSTITUTIONAL: Denies fever, chills, or sweats. EYES: Denies visual changes, redness, or discharge. ENT: Denies rhinorrhea, congestion, sore throat, or otalgia. CARDIOVASCULAR: Denies chest pain, palpitations, or edema. RESPIRATORY: Denies cough or dyspnea. GASTROINTESTINAL: Denies abdominal pain, nausea, vomiting, or diarrhea. GENITOURINARY: Denies dysuria or hematuria. SKIN: Denies rash or itching. MUSCULOSKELETAL: Denies back pain, joint pain, or myalgia. NEUROLOGIC: Denies headache, numbness, or weakness. PSYCHIATRIC: Denies anxiety or depression. [facility] Past Medical History Medical History BPH associated with nocturia CAD (coronary artery disease) with proximal LAD drug-eluding stent in 2009. Lexiscan stress test 05/23/2020 demonstrated moderate severity non reversible infarct involving the mid and basilar inferior and inferior lateral segments at the apical lateral segment. Small region of mild reversible ischemia involving the mid and basal anterior lateral segments, EF 49% CKD (chronic kidney disease), stage V managed by Dr. Sachin Joseph Diabetic nephropathy Diabetic retinopathy Dyslipidemia Gout HTN (hypertension), benign Peripheral neuropathy Type 2 diabetes mellitus with other circulatory complications Surgical History Surgical History History of bilateral cataract extraction History of colonoscopy (~06/2018) performed by Dr. 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
[2020-08-27 21:11] LABS: Alveolar/Arterial O2 Gradient 7.1 mmHg; Base Excess ABG 3.3 mEq/l (+/-2.0); Device ROOM AIR; Fractional Inspired Oxygen 21 %; HCO3 ABG 28.3 mEq/l (22.0-26.0); Modified Allen's Test Pass; Oxygen Content ABG 15.6 %vol (16.0-22.0); Oxygen Saturation ABG 96.9 % (95.0-100.0); Oxyhemoglobin 95.6 % THb (90.0-100.0); PCO2 ABG 44.7 mmHg (35.0-45.0); PO2 ABG 89.1 mmHg (80.0-100.0); PO2 FiO2 Ratio Arterial Blood 4.24 %; Site Drawn RIGHT RADIAL; Total Hemoglobin 11.5 g/dL (12.0-18.0); pH ABG 7.419 (7.350-7.450)
--- NOTE | 2020-08-27 21:11 | ECG_ITS ---
Measurements Intervals [place] Rate: 76 P: 42 LA: 242 QRS: -15 QRSD: 109 T: 264 QT: 414 QTc: 466 Interpretive Statements SINUS RHYTHM WITH FIRST DEGREE AV BLOCK LOW QRS VOLTAGE IN PRECORDIAL LEADS CANNOT RULE OUT SEPTAL INFARCT, AGE INDETERMINATE BORDERLINE ST-T WAVE ABNORMALITY- DIFFUSE LEADS BASELINE WANDER- I, II, V6 ABNORMAL ECG Electronically Signed On 08-28-2020 7:25:39 CDT by Mina Whitaker D.O.
[2020-08-27 21:30] LABS: D Dimer 1.65 ug/mL (<0.48)
[2020-08-27 21:31] VITALS: BP 150/58; PULSE 92; RESP 19; O2SAT 100
[2020-08-27 21:45] VITALS: O2SAT 100
--- NOTE | 2020-08-27 21:48 | PC.NURSE ---
Pt denies having any pain or SOB at this moment. States he only feels pain when he's walking or moving around. He states he feels like he isn't getting enough air in his lungs when hes walking. Pt also he feels phantom pain in his inner left foot area and itching on the right foot.
[2020-08-27 21:58] LABS: Alanine Aminotransferase 13 U/L (4-50); Albumin Level 3.5 g/dL (3.5-5.1); Alkaline Phosphatase 96 U/L (38-126); Anion Gap 9 mmol/L (8-16); Aspartate Amino Transferase 31 U/L (17-59); Bilirubin,Total 1.3 mg/dL (0.2-1.3); Blood Urea Nitrogen 22 mg/dL (9-20); Calcium 10.4 mg/dL (8.4-10.2); Carbon Dioxide 32 mmol/L (22-30); Chloride 94 mmol/L (98-107); Estimated CRCL calculation 26 ml/min; Estimated Glomerular Filt Rate 18; Glucose 134 mg/dL (75-110); Potassium 3.4 mmol/L (3.4-5.0); Sodium 135 mmol/L (137-145)
--- NOTE | 2020-08-27 21:58 | PC.NURSE ---
This nurse spoke with Pt about the need for urine, Pt states due to having bad kidneys he doesnt make much urine. Pt refused for staff to straight cath.
[2020-08-27 22:10] VITALS: BP 157/61; PULSE 78; RESP 18; O2SAT 100
[2020-08-27 22:17] LABS: Troponin I 0.062 ng/mL (0.000-0.034)
[2020-08-27 22:38] LABS: Add Urine Microscopic? YES; Appearance Urine Clear (Clear); Bilirubin Urine Negative (Negative); Blood Urine Negative (Negative); Color Urine Straw (Yellow); Glucose Urine UA Negative (Negative); Ketones Urine Negative (Negative); Leukocyte Esterase Ur Negative LEU/UL (Negative); Nitrate Urine Negative (Negative); Protein Urine 2+ mg/dL (Negative); RBC Urine 0-2 /hpf (0-2); Specific Grav Ur 1.006 (1.001-1.035); Urobilinogen Urine Negative mg/dL (<2.0); WBC Urine 0-3 /hpf
[2020-08-28 00:30] VITALS: BP 161/79; PULSE 81; RESP 17; O2SAT 100
== END 2020-08-27 22:55 | disposition home or self-care (01) ==
PROVIDERS: Emergency Provider Emergency Medicine; PCP Family Medicine
DX: R42 Dizziness and giddiness (principal); R06.02 Shortness of breath; I25.10 Atherosclerotic heart disease of native coronary artery without angina pectoris; I12.0 Hypertensive chronic kidney disease with stage 5 chronic kidney disease or end stage renal disease; E11.22 Type 2 diabetes mellitus with diabetic chronic kidney disease; N18.5 Chronic kidney disease, stage 5; Z99.2 Dependence on renal dialysis; E11.42 Type 2 diabetes mellitus with diabetic polyneuropathy; M10.9 Gout, unspecified; E11.319 Type 2 diabetes mellitus with unspecified diabetic retinopathy without macular edema; E11.59 Type 2 diabetes mellitus with other circulatory complications; N40.0 Benign prostatic hyperplasia without lower urinary tract symptoms; Z98.42 Cataract extraction status, left eye; Z98.41 Cataract extraction status, right eye; Z89.511 Acquired absence of right leg below knee; Z89.512 Acquired absence of left leg below knee; Z79.82 Long term (current) use of aspirin; Z87.891 Personal history of nicotine dependence
CPT/HCPCS: 36415; 36600; 71046; 80048; 80053; 81001; 82805; 84484; 85025; 85380; 85610; 93005; 99284

== ENCOUNTER 2020-12-27 10:11 | Emergency (ER) | payer OTHER, SELFPAY ==
[2020-12-27 10:16] VITALS: BP 111/57; PULSE 85; RESP 20; TEMP 37; O2SAT 99
--- NOTE | 2020-12-27 11:00 | ED.FEVER ---
HPI - Fever General Chief Complaint: Fever Stated Complaint: fever, sent from [facility] for covid test Time Seen by Provider: 12/27/20 11:00 History of Present Illness HPI Narrative: 70 yo male w/ h/o ESRD presents to the ED for COVID-19 testing. He was scheduled for dialysis this morning and he took his temperature before going. It was mildly elevated at 99.5. He called [facility] with the result and they told him that he needed to be tested for COVID-19 before he could get dialysis. He does report feeling congested, fatigued and achy. No cough, SOB, CP. Related Data Home Medications Medication Instructions Recorded Confirmed acetaminophen 500 mg capsule 1,000 mg PO Q6H PRN cap 11/28/19 12/03/20 amlodipine 5 mg tablet 5 mg PO DAILY 11/28/19 12/03/20 aspirin 81 mg tablet,delayed 81 mg PO DAILY 11/28/19 12/03/20 release multivitamin 1 tablet PO DAILY 11/28/19 12/03/20 ascorbic acid (vitamin C) 250 mg 250 mg PO BIDWM 12/04/19 12/03/20 tablet ferrous sulfate 325 mg (65 mg 325 mg PO BIDWM 12/04/19 12/03/20 iron) tablet lisinopril 10 mg tablet 20 mg PO BID 12/04/19 12/03/20 simvastatin 10 mg PO HS 05/22/20 12/03/20 allopurinol 100 mg PO DAILY 06/29/20 12/03/20 famotidine 20 mg PO BID 06/29/20 12/03/20 gabapentin 100 mg capsule 100 mg PO DAILY 12/03/20 12/03/20 sevelamer carbonate 800 mg tablet 800 mg PO TID 12/03/20 12/03/20 ticagrelor 90 mg tablet 90 mg PO Q12H 12/03/20 12/03/20 vitamin B complex-vitamin C-folic 1 tablet PO DAILY 12/03/20 12/03/20 acid 0.8 mg tablet Allergies Allergy/AdvReac Type Severity Reaction Status Date / Time morphine Allergy Severe Stopped Verified 12/27/20 10:18 Breathing Review of Systems Review of Systems: All systems reviewed & are unremarkable except as noted in HPI and below Constitutional: Constitutional: Denies fever(s) ENT: Denies sore throat Cardiovascular: Cardiovascular: Denies chest pain Respiratory: Respiratory: Denies cough and Denies dyspnea Gastrointestinal: Gastrointestinal: Denies abdominal pain Musculoskeletal: Musculoskeletal: Reports myalgias Neurologic: Denies dizziness and Denies weakness PMF Past Medical History Medical History BPH associated with nocturia CAD (coronary artery disease) with proximal LAD drug-eluding stent in 2009. Lexiscan stress test 05/23/2020 demonstrated moderate severity non reversible infarct involving the mid and basilar inferior and inferior lateral segments at the apical lateral segment. Small region of mild reversible ischemia involving the mid and basal anterior lateral segments, EF 49% CKD (chronic kidney disease), stage V managed by Dr. Sachin Joseph Diabetic nephropathy Diabetic neuropathy Diabetic retinopathy Dyslipidemia ESRD on hemodialysis GERD (gastroesophageal reflux disease) Gout HTN (hypertension), benign Peripheral neuropathy Type 2 diabetes mellitus with other circulatory complications Surgical History Surgical History History of bilateral cataract extraction 2019 History of colonoscopy (~06/2018) performed by Dr. Masters: demonstrated internal and external hemorrhoids, hypertrophied anal papillae and anal skin tag History of coronary artery stent placement 06/2020 History of esophagogastroduodenoscopy (EGD) with duodenal ulcers in 2010 History of left below knee amputation 2010 History of right below knee amputation 1998 Family History Family History Father , Age 70 Hypertension, Onset Age: 72 Cerebrovascular accident Diabetes mellitus Obesity Hearing loss Mother , Age 78 Leukemia complicated by pneumonia Sibling Aneurysm Diabetes mellitus Congestive heart failure Social History Social History Social History: Prima
[2020-12-27 12:01] VITALS: BP 132/54; PULSE 78; RESP 16; O2SAT 97
[2020-12-27 20:38] LABS: SARS-CoV-2 RNA PCR Positive
== END 2020-12-27 12:25 | disposition home or self-care (01) ==
PROVIDERS: Emergency Provider Emergency Medicine; PCP Family Medicine
DX: U07.1 COVID-19 (principal); J06.9 Acute upper respiratory infection, unspecified; E11.22 Type 2 diabetes mellitus with diabetic chronic kidney disease; I12.0 Hypertensive chronic kidney disease with stage 5 chronic kidney disease or end stage renal disease; N18.6 End stage renal disease; Z99.2 Dependence on renal dialysis; E11.319 Type 2 diabetes mellitus with unspecified diabetic retinopathy without macular edema; E11.42 Type 2 diabetes mellitus with diabetic polyneuropathy; E11.21 Type 2 diabetes mellitus with diabetic nephropathy; I25.10 Atherosclerotic heart disease of native coronary artery without angina pectoris; N40.1 Benign prostatic hyperplasia with lower urinary tract symptoms; R35.1 Nocturia; K21.9 Gastro-esophageal reflux disease without esophagitis; M10.9 Gout, unspecified; Z87.891 Personal history of nicotine dependence; Z98.42 Cataract extraction status, left eye; Z98.41 Cataract extraction status, right eye; Z95.5 Presence of coronary angioplasty implant and graft; Z89.512 Acquired absence of left leg below knee; Z89.511 Acquired absence of right leg below knee; Z79.82 Long term (current) use of aspirin
CPT/HCPCS: 99283; C9803; U0003; U0005

== ENCOUNTER 2020-12-31 16:53 | Inpatient (IN) | payer OTHER, SELFPAY ==
[2020-12-31] VITALS (17 sets, daily range): BP systolic 110–132; BP diastolic 60–80; PULSE 86–131; RESP 17–56; TEMP 36.9; O2SAT 92–100
--- NOTE | ~2020-12-31 | XR_ITS ---
EXAMINATION: XR chest 1V portable DATE: 01/01/2021 10:29 INDICATION: Shortness of breath. COVID-19 pneumonia. TECHNIQUE: A single frontal view of the chest was obtained. COMPARISON: Chest single view 12/31/2020, chest 2 views 08/27/2020 FINDINGS: There are airspace opacities in the lower lung zones. No pleural effusion or pneumothorax. The heart size is normal. A right internal jugular central venous catheter is seen with tip in the pr oximal right atrium. IMPRESSION: 1. Stable airspace opacities in the lower lung zones, consistent with pneumonia. Reviewed, dictated and finalized at location A. GER CREDIT RISK IMPRESSION: 1. Stable airspace opacities in the lower lung zones, consistent with pneumonia .
--- NOTE | ~2020-12-31 | XR_ITS ---
EXAMINATION: XR chest 1V portable DATE: 12/31/2020 17:48 INDICATION: COVID positive. Shortness of breath. TECHNIQUE: frontal view of the chest was obtained. COMPARISON: Chest radiograph dated 08/27/2020 FINDINGS: Large-bore dual-lumen right internal jugular central venous catheter with distal tip at the superior cavoatrial junction. There are new opacities in the lateral lower lung zones. No pleural effusion or pneumothorax. The cardiomediastinal silhouette is normal. Severe bilateral acromioclavicular osteoart hritis. IMPRESSION: 1. New opacities the bilateral lower lung zones which could represent pulmonary edema or pneumonia. Reviewed, dictated and finalized at location A. E RECEIVING SPECIALIST
--- NOTE | ~2020-12-31 | XR_ITS ---
XR chest 1V portable DATE: 01/03/2021 06:11 INDICATION: Respiratory failure TECHNIQUE: Portable AP chest on January 03, 2021 at 0524 hours COMPARISON: Portable AP chest on January 02, 2021 at 0558 hours FINDINGS: Right internal jugular central venous catheter tip overlies the upper right atrium. There are diffuse bilateral pulmonary infiltrates more prominent centrally, as well as bones pulmonar y fissure. The findings suggest pulmonary edema. Small pleural effusions are suggested. Heart size appears within normal limits. IMPRESSION: Persistent bilateral pulmonary infiltrates suggesting pulmonary edema. Pneumonia is not e xcluded Reviewed, dictated and finalized at location A. LOPE CUTTER IMPRESSION: Persistent bilateral pulmonary infiltrates suggesting pulmonary sree ma. Pneumonia is not excluded
--- NOTE | ~2020-12-31 | XR_ITS ---
EXAMINATION: XR chest 1V portable DATE: 01/02/2021 06:10 INDICATION: Severe sepsis. TECHNIQUE: A single frontal view of the chest was obtained. COMPARISON: Chest single view 01/01/2021 FINDINGS: There are airspace opacities in all lung zones bilaterally with a perihilar and basilar pre dominance. No pleural effusion or pneumothorax. The heart size is normal. A right internal jugular ce ntral venous catheter is seen with tip in the proximal right atrium. IMPRESSION: 1. Worsened diffuse lung disease, consistent with pulmonary edema versus pneumonia. Reviewed, dictated and finalized at location A. INE ROPE MAKER IMPRESSION: 1. Worsened diffuse lung disease, consistent with pulmonary edema versus pneumo charis.
--- NOTE | ~2020-12-31 | CT_ITS ---
EXAMINATION: CT brain wo con DATE: 01/01/2021 21:41 INDICATION: Altered mental status. TECHNIQUE: Computed tomography (CT) of the head was performed without intravenous contrast. Sagittal and coronal reconstructions were performed. The mA was adjusted according to patient size. Iterative reconstruction technique was employed. The dose-length product was 756.67 mGy-cm. COMPARISON: None FINDINGS: No acute intracranial hemorrhage, acute infarction or abnormal extra axial fluid collection. There is moderate scattered white matter hypoattenuation consistent with chronic small vessel ischemic diseas e. Symmetric prominence of the sulci and ventricles consistent with mild age-appropriate diffuse cere bral volume loss. No mass/mass effect. Mild mucosal thickening at the bilateral maxillary sinuses. Th e orbits and mastoid air cells are normal. Intracranial calcified cerebral atherosclerosis is noted. IMPRESSION: 1. No acute intracranial process. 2. Age-related changes including mild diffuse volume loss and moderate scattered white matter hypoatt enuation consistent with chronic small vessel ischemic disease. Reviewed, dictated and finalized at location A. MAL TECHNICIAN IMPRESSION: 1. No acute intracranial process. 2. Age-related changes including mild diffuse volume loss and moderate scattere d white matter hypoattenuation consistent with chronic small vessel ischemic di sease.
--- NOTE | 2020-12-31 16:55 | ECG_ITS ---
Measurements Intervals [place] Rate: 111 P: 118 MO: 197 QRS: -40 QRSD: 96 T: 132 QT: 340 QTc: 463 Interpretive Statements SINUS TACHYCARDIA LEFT AXIS DEVIATION BORDERLINE R WAVE PROGRESSION, ANTERIOR LEADS ST-T WAVE ABNORMALITY IN HIGH LATERAL LEADS- CONSIDER ISCHEMIA BASELINE WANDER- I, II, AVR, AVL, AVF, V5-V6 ABNORMAL ECG Electronically Signed On 12-31-2020 19:42:23 SEWING MACHINE OPERATOR SEMIAUTOMATIC by Mina Whitaker D.O.
[2020-12-31 17:22] LABS: Alveolar/Arterial O2 Gradient 53.8 mmHg; Base Excess ABG 6.9 mEq/l (+/-2.0); Fractional Inspired Oxygen 21 %; HCO3 ABG 28.9 mEq/l (22.0-26.0); Oxygen Saturation ABG 93.3 % (95.0-100.0); PCO2 ABG 32.7 mmHg (35.0-45.0); PO2 ABG 56.8 mmHg (80.0-100.0); Total Hemoglobin 13.3 g/dL (12.0-18.0)
[2020-12-31 17:24] LABS: Device ROOM AIR; Modified Allen's Test Pass; Site Drawn RIGHT RADIAL; pH ABG 7.564 (7.350-7.450)
[2020-12-31 18:13] LABS: Basophils Percent Auto 0.1 % (0.2-1.2); Hematocrit 38.6 % (42.0-52.0); Immature Granulocyte Absolute 0.06 K/mm3 (0.00-0.031); Immature Granulocyte Percent A 0.6 % (0-0.5); Lymphocytes Absolute Auto 0.59 K/mm3 (0.9-3.2); Lymphocytes Percent Auto 6.3 % (18.3-44.2); Mean Corpuscular HGB Conc 33.7 g/dl (32-36); Mean Corpuscular Hemoglobin 30.7 pg (26-34); Mean Platelet Volume 9.8 fl (7.4-10.4); Monocytes Absolute Auto 0.3 K/mm3 (0.1-0.6); Monocytes Percent Auto 3.6 % (2.6-8.5); Neutrophils Absolute Auto 8.3 K/mm3 (1.3-6.7); Neutrophils Percent Auto 89.4 % (45.5-73.1); Platelet Count Result 243 k/mm3 (150-375); Red Blood Count 4.24 M/mm3 (4.6-6.20); Red Cell Distribution Width 15.3 % (11.5-14.5); White Blood Count 9.3 K/mm3 (4.5-10.0)
[2020-12-31 18:24] LABS: Lactic Acid Reflex 1.9 mmol/L (0.7-2.1)
--- NOTE | 2020-12-31 18:42 | ED.GENADULT ---
HPI - General Adult General Chief complaint: Shortness of Breath/Dyspnea Stated complaint: sob/covid+ Time Seen by Provider: 12/31/20 17:04 History of Present Illness HPI narrative: Patient is a 70-year-old gentleman who is end-stage renal on dialysis that was recently diagnosed with COVID-19 over the weekend. Patient was sent from dialysis today after they had noticed that he was more short of breath and had a room air pulse ox in the 70s. Upon arrival to the emergency department the patient states that he feels somewhat short of breath and reports that he is breathing fast patient denies cough denies chest pain patient reports that he completed his normal run of dialysis but they did not remove any fluid from him. Related Data Home Medications Medication Instructions Recorded Confirmed acetaminophen 500 mg capsule 1,000 mg PO Q6H PRN cap 11/28/19 12/03/20 amlodipine 5 mg tablet 5 mg PO DAILY 11/28/19 12/03/20 aspirin 81 mg tablet,delayed 81 mg PO DAILY 11/28/19 12/03/20 release multivitamin 1 tablet PO DAILY 11/28/19 12/03/20 ascorbic acid (vitamin C) 250 mg 250 mg PO BIDWM 12/04/19 12/03/20 tablet ferrous sulfate 325 mg (65 mg 325 mg PO BIDWM 12/04/19 12/03/20 iron) tablet lisinopril 10 mg tablet 20 mg PO BID 12/04/19 12/03/20 simvastatin 10 mg PO HS 05/22/20 12/03/20 allopurinol 100 mg PO DAILY 06/29/20 12/03/20 famotidine 20 mg PO BID 06/29/20 12/03/20 gabapentin 100 mg capsule 100 mg PO DAILY 12/03/20 12/03/20 sevelamer carbonate 800 mg tablet 800 mg PO TID 12/03/20 12/03/20 ticagrelor 90 mg tablet 90 mg PO Q12H 12/03/20 12/03/20 vitamin B complex-vitamin C-folic 1 tablet PO DAILY 12/03/20 12/03/20 acid 0.8 mg tablet Allergies Allergy/AdvReac Type Severity Reaction Status Date / Time morphine Allergy Severe Stopped Verified 12/27/20 10:18 Breathing Review of Systems Review of Systems: Narrative: A 10 system review of systems was completed on the patient and is negative except for what is stated in the HPI. Nursing and ancillary documentation was reviewed. [facility] Past Medical History Medical History (Updated 12/31/20 @ 22:54 by Deepa Carrillo PA-C) Anemia of chronic disease Benign prostatic hyperplasia Coronary artery disease Status post drug-eluting stent to the proximal LAD in 2009. Lexiscan stress test on 05/23/2020 demonstrated moderately severe non reversible infarct involving the mid and basilar inferior and inferior lateral segments at the apical lateral segment with a small region of mild reversible ischemia along the mid and basal anterior lateral segments, ejection fraction 49%. Diabetic nephropathy Diabetic neuropathy Diabetic retinopathy Dyslipidemia End-stage renal disease on hemodialysis Patient of Dr. Joseph. Gastroesophageal reflux disease Gout History of duodenal ulcer Hypertension Peripheral neuropathy Type 2 diabetes mellitus with other circulatory complications Surgical History Surgical History (Updated 12/31/20 @ 22:50 by Deepa Carrillo PA-C) History of bilateral cataract extraction (~2019) History of colonoscopy (~06/2018) Performed by Dr. Masters: demonstrated internal and external hemorrhoids, hypertrophied anal papillae and anal skin tag. History of coronary artery stent placement (~06/2020) Drug-eluting stent to the proximal LAD. History of esophagogastroduodenoscopy (EGD) (~2010) Showing duodenal ulcers. History of left below knee amputation (~2010) History of right below knee amputation (~1998) Family History Family History Father , Age 70 Hypertension, Onset Age: 72 Cerebrovascular accident Diabetes mellitus Obesity Hearing loss Mother , Age 78 Leukemia complicated by pneumonia Sibling Aneurysm Diabetes mellitus Congestive heart failure Social History Social History (Updated 12/31/20 @ 22:50 by Deepa Carrillo PA-C) Social Hist
[2020-12-31 18:51] LABS: Alanine Aminotransferase 76 U/L (4-50); Albumin Level 3.3 g/dL (3.5-5.1); Alkaline Phosphatase 75 U/L (38-126); Anion Gap 7 mmol/L (8-16); Aspartate Amino Transferase 90 U/L (17-59); Bilirubin,Total 2.2 mg/dL (0.2-1.3); Blood Urea Nitrogen 54 mg/dL (9-20); Calcium 8.4 mg/dL (8.4-10.2); Carbon Dioxide 35 mmol/L (22-30); Chloride 93 mmol/L (98-107); Estimated Glomerular Filt Rate 15; Glucose 115 mg/dL (75-110); Potassium 3.9 mmol/L (3.4-5.0); Sodium 135 mmol/L (137-145)
[2020-12-31] MEDS: fentaNYL CITRATE INJ (*CRX) 100 MCG/2 ML VIAL 25 MCG IV PUSH (19:27)
[2020-12-31 19:34] LABS: NT Pro B Type Natriuretic Pept > 35000 PG/ML (5-100)
[2020-12-31 20:08] LABS: Basophils Percent Auto 0.1 % (0.2-1.2); Hematocrit 36.8 % (42.0-52.0); Hemoglobin 12.2 g/dL (14.0-18.0); Immature Granulocyte Absolute 0.06 K/mm3 (0.00-0.031); Immature Granulocyte Percent A 0.6 % (0-0.5); Lymphocytes Absolute Auto 0.47 K/mm3 (0.9-3.2); Lymphocytes Percent Auto 4.8 % (18.3-44.2); Mean Corpuscular HGB Conc 33.2 g/dl (32-36); Mean Corpuscular Hemoglobin 30.4 pg (26-34); Mean Corpuscular Volume 91.8 fl (80-100); Monocytes Absolute Auto 0.4 K/mm3 (0.1-0.6); Monocytes Percent Auto 3.8 % (2.6-8.5); Neutrophils Absolute Auto 8.8 K/mm3 (1.3-6.7); Neutrophils Percent Auto 90.7 % (45.5-73.1); Platelet Count Result 197 k/mm3 (150-375); Red Blood Count 4.01 M/mm3 (4.6-6.20); Red Cell Distribution Width 15.1 % (11.5-14.5); White Blood Count 9.7 K/mm3 (4.5-10.0)
[2020-12-31 20:18] LABS: INR 1.1; Prothrombin Time 14.3 Seconds (11.1-14.7)
[2020-12-31 20:19] LABS: Partial Thromboplastin Time 65.3 SECONDS (22.3-36.8)
[2020-12-31] MEDS: ASPIRIN 81 MG CHEWABLE TABLET 324 MG PO (20:32)
[2020-12-31] MEDS: HEPARIN SODIUM 5,000 UNITS/ML VIAL 4000 UNITS IV PUSH (20:32)
[2020-12-31] MEDS: HEPARIN SOD/D5W 100 UNITS/ML 25,000 UNITS/250 ML BAG 10 UNITS IV CONT (20:39)
[2021-01-01] VITALS (27 sets, daily range): BP systolic 64–118; BP diastolic 40–103; PULSE 29–136; RESP 18–112; TEMP 35.7–37.8; O2SAT 94–100; BMI 26.7
--- NOTE | 2021-01-01 00:25 | PM.IMHP ---
H&P: HPI History of Present Illness Date/Time: 01/01/21 00:25 Chief Complaint: Shortness of breath. Narrative: This is a 70-year-old male with end-stage renal disease on hemodialysis, hypertension, hyperlipidemia, and chronic anemia who presented to the emergency department earlier today via EMS from dialysis for evaluation of shortness of breath. For the last 5 days or so he has not felt great with mild shortness of breath and decreased appetite as well as decreased sense in taste and smell. In fact he tested positive for COVID-19 on 12/27/2020. Today he was at dialysis and staff there thought he appeared more short of breath than usual and his SpO2 was reportedly in the 70s although he was 100% on room air on arrival to the emergency department. The patient himself does not really feel as though he has any more short of breath than usual. He just feels a bit tired. EKG done emergency department showed some ST segment changes in the high lateral leads and a subsequent troponin was markedly elevated at 13.300. Interestingly the patient has no chest pain or discomfort whatsoever and he also denies nausea, vomiting, and sweats. He has not had pleuritic pain or palpitations. No significant cough, sinus congestion, otalgia, or odynophagia. To his knowledge he has not had a fever. Review of Systems Review of Systems: Narrative: Twelve systems were reviewed with pertinent positives and negatives as per HPI. He complains of a mild headache at this time. No syncope or near syncope. No orthopnea, PND, or lower extremity edema he is status post bilateral [id number] amputation. He does still urinate some. No dysuria. Except as documented, all other systems were reviewed and are negative. [facility] Past Medical History Medical History (Updated 01/01/21 @ 02:17 by Deepa Carrillo PA-C) Anemia of chronic disease Benign prostatic hyperplasia Coronary artery disease Status post drug-eluting stent to the proximal LAD in 2009. Lexiscan stress test on 05/23/2020 demonstrated moderately severe non reversible infarct involving the mid and basilar inferior and inferior lateral segments at the apical lateral segment with a small region of mild reversible ischemia along the mid and basal anterior lateral segments, ejection fraction 49%. Diabetic nephropathy Diabetic neuropathy Diabetic retinopathy Dyslipidemia End-stage renal disease on hemodialysis Patient of Dr. [place]. Gastroesophageal reflux disease Gout History of duodenal ulcer Hypertension Peripheral neuropathy Peripheral vascular disease Type 2 diabetes mellitus with other circulatory complications Surgical History Surgical History (Updated 12/31/20 @ 22:50 by Deepa Carrillo PA-C) History of bilateral cataract extraction (~2019) History of colonoscopy (~06/2018) Performed by Dr. Masters: demonstrated internal and external hemorrhoids, hypertrophied anal papillae and anal skin tag. History of coronary artery stent placement (~06/2020) Drug-eluting stent to the proximal LAD. History of esophagogastroduodenoscopy (EGD) (~2010) Showing duodenal ulcers. History of left below knee amputation (~2010) History of right below knee amputation (~1998) Family History Family History Father , Age 70 Hypertension, Onset Age: 72 Cerebrovascular accident Diabetes mellitus Obesity Hearing loss Mother , Age 78 Leukemia complicated by pneumonia Sibling Aneurysm Diabetes mellitus Congestive heart failure Social History Social History Social History: Code status: Full code Healthcare power of assistant attorney general: Man Duarte, son. Smoking packs per day: 1 Smoking cigarettes per day: 20.0 Years smoked: 8 Smoking pack-years: 8.00 Smoking status: Former smoker Tobacco type: cigarettes Smoking end date: 11/21/89 Alcohol int
--- NOTE | 2021-01-01 00:51 | ADMGEN ---
This patient, Sal Duarte, was admitted to IMU Room 212-01 at 0008 from the Emergency Department. Patient/family oriented to hospital policies and general routines including ID bracelet, bed and alarms, visiting hours, pain management, procedures, bathroom and other care routines, personal items, smoking policy, room service/diet, and visiting hours. Information on how to activate the Rapid Response Team has been discussed. Patient/Family are encouraged to report perceived risks to care and to ask questions if they do not understand what they are told or what they should do.
[2021-01-01 02:34] LABS: Basophils Percent Auto 0.3 % (0.2-1.2); Hematocrit 38.4 % (42.0-52.0); Hemoglobin 11.7 g/dL (14.0-18.0); Immature Granulocyte Absolute 0.04 K/mm3 (0.00-0.031); Immature Granulocyte Percent A 0.6 % (0-0.5); Lymphocytes Absolute Auto 0.52 K/mm3 (0.9-3.2); Lymphocytes Percent Auto 7.8 % (18.3-44.2); Mean Corpuscular HGB Conc 30.5 g/dl (32-36); Mean Corpuscular Hemoglobin 30.2 pg (26-34); Mean Platelet Volume 9.7 fl (7.4-10.4); Monocytes Absolute Auto 0.4 K/mm3 (0.1-0.6); Monocytes Percent Auto 5.7 % (2.6-8.5); Neutrophils Absolute Auto 5.7 K/mm3 (1.3-6.7); Neutrophils Percent Auto 85.6 % (45.5-73.1); Platelet Count Result 194 k/mm3 (150-375); Red Blood Count 3.88 M/mm3 (4.6-6.20); Red Cell Distribution Width 15.7 % (11.5-14.5); White Blood Count 6.7 K/mm3 (4.5-10.0)
[2021-01-01 03:04] LABS: Partial Thromboplastin Time > 200.0 SECONDS (22.3-36.8)
[2021-01-01] MEDS: ALBUTEROL SULFATE NEB 2.5 MG/0.5 ML INH 5 MG INHALATION ×3 (03:22→19:24)
[2021-01-01] MEDS: IPRATROPIUM BR 0.02% INH SOLN 0.5 MG/2.5 ML VIAL INHALATION ×3 (03:22→19:24)
[2021-01-01 06:52] LABS: Hemoglobin A1C 5.9 % (<5.7)
[2021-01-01 07:00] LABS: Alanine Aminotransferase 57 U/L (4-50); Albumin Level 2.9 g/dL (3.5-5.1); Alkaline Phosphatase 64 U/L (38-126); Anion Gap 9 mmol/L (8-16); Aspartate Amino Transferase 74 U/L (17-59); Bilirubin,Total 1.9 mg/dL (0.2-1.3); Blood Urea Nitrogen 87 mg/dL (9-20); Calcium 8.4 mg/dL (8.4-10.2); Carbon Dioxide 29 mmol/L (22-30); Chloride 97 mmol/L (98-107); Estimated CRCL calculation 17 ml/min; Estimated Glomerular Filt Rate 13; Glucose 107 mg/dL (75-110); Lactate Dehydrogenase 874 U/L (313-618); Potassium 4.4 mmol/L (3.4-5.0); Sodium 135 mmol/L (137-145)
[2021-01-01 07:09] LABS: CRP 15.4 mg/dL (<1.0)
[2021-01-01 07:16] LABS: Hematocrit 31.7 % (42.0-52.0); Hemoglobin 10.4 g/dL (14.0-18.0); Mean Corpuscular HGB Conc 32.8 g/dl (32-36); Mean Corpuscular Hemoglobin 30.5 pg (26-34); Mean Platelet Volume 9.6 fl (7.4-10.4); Platelet Count Result 202 k/mm3 (150-375); Red Blood Count 3.41 M/mm3 (4.6-6.20); Red Cell Distribution Width 15.3 % (11.5-14.5); White Blood Count 7.9 K/mm3 (4.5-10.0)
[2021-01-01 07:21] LABS: Partial Thromboplastin Time 184.5 SECONDS (22.3-36.8)
--- NOTE | 2021-01-01 07:44 | ECHO_ITS ---
Patient Info Name: Sal Duarte Age: 70 years : 1950 Gender: Male Ht: 64 in Wt: 219 lbs BSA: 2.17 m2 HR: 124 bpm BP: 110 / 60 mmHg Heart Rhythm: Sinus Rhythm Technical Quality: Good Exam Date: 01/01/2021 2:01 PM Exam Location: [facility] Patient Status: Inpatient Admit Date: 12/31/2020 Staff Ordering Physician: Judie Arrieta MD Supervisor Decorating: Panchito Cunningham, SERENE, RT Attending Provider: Sonia Abdullahi PA-C Referring Physician: Berny HILL; Exam Type: CA echo doppler color flow Study Info Indications I21.4 - Non-ST elevation (NSTEMI) myocardial infarction I50.9 - Heart failure, unspecified Complete two-dimensional, color flow and Doppler transthoracic echocardiogram is performed. Summary 1. Complete two-dimensional, color flow and Doppler transthoracic echocardiogram is performed. 2. The left ventricle is mildly enlarged with normal wall thickness. There is moderate global hypokinesis with akinesis of the mid and distal inferior wall, apex, and distal septum. The anterior wall is not well visualized. The calculated ejection fraction is 20 5% and visually it appears to be 20-25%. 3. No significant valve disease. 4. Left atrial chamber dimension is mildly enlarged. 5. Normal sinus rhythm. 6. Very technically difficult study. Left Ventricle Left ventricular chamber dimension is mildly enlarged. Left ventricular systolic function is severely reduced, estimated at 20-25%. There is no increased left ventricular wall thickness. Left ventricular septal wall motion is normal. The left ventricular diastolic function is indeterminate. Right Ventricle Right ventricular chamber dimension is mildly enlarged. Right ventricular systolic function is normal. Left Atria Left atrial chamber dimension is mildly enlarged. Right Atria Right atrial chamber dimension is normal. Aortic Valve The aortic valve is trileaflet. There is no aortic valve sclerosis. There is no aortic valve stenosis. There is no aortic valve regurgitation. Pulmonic Valve The pulmonic valve is normal. There is no pulmonic valve stenosis. There is no pulmonic regurgitation. Mitral Valve The mitral valve has calcified annulus. There is no mitral valve stenosis. There is no mitral valve regurgitation. Tricuspid Valve The tricuspid valve leaflets are normal. There is no significant tricuspid valve stenosis. There is no tricuspid valve regurgitation. No pulmonary hypertension, estimated pulmonary arterial systolic pressure is Empty. Pericardium/Pleural The pericardium appears normal. There is no pericardial effusion. Inferior Vena Cava Not well visualized inferior vena cava with >50% collapse upon inspiration consistent with Empty right atrial pressure, Empty. Aorta The aortic root size at the sinus of Valsalva is normal. The prox ascending aorta size is normal. Left Ventricular Outflow Tract Name Value Normal LVOT 2D LVOT Diameter 2.0 cm LVOT Doppler LVOT Peak Velocity 64 cm/s LVOT Peak Gradient 2 mmHg LVOT Mean Gra
--- NOTE | 2021-01-01 07:44 | ECG_ITS ---
Measurements Intervals [place] Rate: 123 P: NM: 0 QRS: -39 QRSD: 91 T: 124 QT: 308 QTc: 442 Interpretive Statements SINUS OR ECTOPIC ATRIAL TACHYCARDIA BORDERLINE R WAVE PROGRESSION, ANTERIOR LEADS ST ELEVATION IN SEPTAL LEADS- CONSIDER ACUTE INJURY BASELINE ARTIFACT- AVR, V2-V4 ABNORMAL ECG Electronically Signed On 01-01-2021 14:15:47 HOGSHEAD DUMPER by Mina Whitaker D.O.
[2021-01-01 08:15] LABS: Glucose Point of Care 104 (65-105)
[2021-01-01] MEDS: allopurinoL 100 MG TABLET PO (09:21)
[2021-01-01] MEDS: PANTOPRAZOLE SODIUM IV 40 MG VIAL IV PUSH (09:21)
[2021-01-01] MEDS: amLODIPine BESYLATE 5 MG TABLET PO (09:22)
[2021-01-01] MEDS: ISOSORBIDE MONONITRATE 30 MG TAB.ER.24H PO (09:23)
[2021-01-01] MEDS: GABAPENTIN 100 MG CAPSULE PO (09:23)
[2021-01-01] MEDS: VITAMIN B CMPLX/VIT C/FOLIC AC 1 CAPSULE 1 CAP PO (09:24)
--- NOTE | 2021-01-01 10:15 | WPDGICN ---
Assessment and Plan Assessment and plan (1) GIB (gastrointestinal bleeding): Code(s): K92.2 - Gastrointestinal hemorrhage, unspecified Status: Acute Assessment and Plan: in setting of heparin drip after recent diagnosis of NSTEMI I think that he is too sick to undergo EGD, most likely won't tolerate anesthesia and will have to be intubated which is not preferable with COVID. He also has acute OK start iv protonix drip and monitor for signs of more bleeding, if drop in hemoblogin or more bleeding then will reassess if he needs urgent EGD under this circumstance. heparin drip on hold (2) Melena: Code(s): K92.1 - Melena Status: Acute Assessment and Plan: upper gib, protonix and trend hb (3) Non-ST elevation [place] (NSTEMI): Code(s): I21.4 - Non-ST elevation (NSTEMI) myocardial infarction Status: Acute Assessment and Plan: he has known heart disease with cardiac cath few months ago, cardiology on board, elevated troponin (4) COVID-19: Code(s): U07.1 - COVID-19 Status: Acute Assessment and Plan: with pneunonia (reviewed CXR) and respiratory distress- by primary (5) ESRD (end stage renal disease): Code(s): N18.6 - End stage renal disease Status: Acute Assessment and Plan: nephrology to see (6) Coronary artery disease: Code(s): I25.10 - Atherosclerotic heart disease of [place] coronary artery without angina pectoris Status: Acute (7) Acute respiratory failure with hypoxia: Code(s): J96.01 - Acute respiratory failure with hypoxia Status: Acute Assessment and Plan: monitor for decompensation (8) Acute on chronic blood loss anemia: Code(s): D62 - Acute posthemorrhagic anemia Status: Acute Assessment and Plan: trend h/h, transfuse if hb <7 GI Consult Note Consult date/time: 01/01/21 10:15 Reason for consult: GIB, melena HPI: Sal Duarte is a 70 year old male with multiple comorbidities including end-stage renal disease on hemodialysis, hypertension, hyperlipidemia, CAD with OK 06/2020 and chronic anemia (hb 9-11) who came to the emergency department via EMS from dialysis for worsening shortness of breath. He tested positive for COVID-19 on 12/27/2020 and last 5 days had more shortness of breath, his SpO2 was reportedly in the 70s in dialysis although he was 100% on arrival to the emergency department. EKG showed some ST segment changes in the lateral leads and troponin elevated at 13, admitted to floor and started on heparin drip with PTT rafal high >200. Then RN noted brbpr and most recently dark tarry stool. Patient is tachycardic at 120's and also tachypneic with RR 26 and can not complete a sentence because shortness of breath. Last hb 10.5, bun 87, creat 4.6. He says that had colonoscopies x3, last one 3-4 years ago. Review of Systems Constitutional: Constitutional: Reports fatigue and Reports lethargy Eyes: Eyes: Reports no additional eye complaints ENT: Reports Normal hearing present Cardiovascular: Cardiovascular: Reports palpitations Respiratory: Respiratory: Reports chest congestion and Reports dyspnea on exertion Gastrointestinal: Gastrointestinal: Reports melena Genitourinary: Comments: on dialysis Musculoskeletal: Musculoskeletal: Reports no additional musculoskeletal complaints Integumentary/Breasts: Skin/Breast: Denies rash Neurologic: Denies vertigo [facility] Past Medical History Medical History (Updated 01/01/21 @ 10:44 by Jenaro Mujica MD) Acute on chronic blood loss anemia Anemia of chronic disease Benign prostatic hyperplasia Coronary artery disease Status post drug-eluting stent to the proximal LAD in 2009. Lexiscan stress test on 05/23/2020 demonstrated moderately severe non reversible infarct involving the mid and basilar inferior and inferior lateral segments at the apical lateral segment with a small region of mild reversible ischemia naresh
[2021-01-01 10:19] LABS: Ferritin > 2000.00 ng/mL (11.1-264)
[2021-01-01 10:26] LABS: IFOB Positive Control Positive; Immunochemical Fecal Occult Bl Positive (N)
--- NOTE | 2021-01-01 10:29 | P.PNIM_ITS ---
Progress Note: A&P Assessment and Plan (1) Hypotension: Qualifiers: Hypotension type: unspecified hypotension type Qualified Code(s): I95.9 - Hypotension, unspecified Code(s): I95.9 - Hypotension, unspecified Status: Acute Assessment and Plan: * History of hypertension, now with hypotension this morning. May be related to diarrhea and GI bleeding. * Discussed case with assistant operator. BP 74/42 - Give 500mL fluid bolus now and monitor BP, may need another bolus after. I have also notified my collab orating physician of this patient's condition. Edit: Repeat BP after first bolus is 90s/50s; will give another 500mL bolus and monitor BP closely. Updated assistant operator. Edit: BPs as low as 60s/40s despite two 500mL boluses and initiation of first un it packed RBC. Updated assistant operator again and my collaborating physician. We will transfer to ICU, Dr Martinez recommends terrence lawler. Appreciate recommendations. (2) Non-ST elevation [place] (NSTEMI): Code(s): I21.4 - Non-ST elevation (NSTEMI) myocardial infarction Status: Acute Assessment and Plan: * Patient presents due to shortness of breath during dialysis, COVID positive 12/27/20. * Patient denies chest pain. Troponins are elevated to 13.3; 14.3; 13.[address] changes in lateral leads on EKG. He was started on heparin gtt in ED which is now stopped due to multiple moderate dark red/black bowel movements starting early this morning. * Appreciate cardiology input. Clinical picture is complicated by GI bleeding, hypotension. (3) Acute on chronic blood loss anemia: Code(s): D62 - Acute posthemorrhagic anemia Status: Acute Assessment and Plan: * Patient with multiple moderate-sized dark stools with Hgb trending down. Was 13.0 on arrival down to 10.4 this morning. * Check serial H&H q4 hr and transfuse as needed to keep Hgb > 7. * GI consultation appreciated - Dr Rollins has started IV protonix drip, suspect not stable enough for EGD at this time. Edit: Hgb down to 8.5 from 10.4. Updated assistant operator. Transfuse 2 units packed RBC. Continue to monitor H&H closely. (4) Melena: Code(s): K92.1 - Melena Status: Acute Assessment and Plan: * See above. At least two moderate dark stools thus far today. Monitor H&H. * He has history of GI bleeding in the past, duodenal ulcers on EGD April 2011. (5) COVID-19: Code(s): U07.1 - COVID-19 Status: Acute Assessment and Plan: * COVID positive 12/27/20. CXR shows bibasilar airspace opacities. * Remdesivir contraindicated given his end-stage renal failure. He has had adequate oxygenation on room air thus no indication for dexamethasone at this time. * Continue supportive care and monitor with continue pulse oximetry due to tachypnea. Afebrile. ABG noted. (6) Coronary artery disease: Qualifiers: Associated angina: angina presence unspecified Coronary Disease- Associated Artery/Lesion type: unspecified vessel or lesion type [place] vs. transplanted heart: unspecified whether [place] or transplanted heart Qualified Code(s): I25.10 - Atherosclerotic heart disease of [place] coronary artery without angina pectoris Code(s): I25.10 - Atherosclerotic heart disease of [place] coronary artery without angina pectoris Status: Acute Assessment and Plan: * CAD with history of coronary stenting 06/2020. Appreciate cardiology recommendatio
--- NOTE | 2021-01-01 10:29 | PM.IMPN ---
Progress Note: A&P Assessment and Plan (1) Hypotension: Qualifiers: Hypotension type: unspecified hypotension type Qualified Code(s): I95.9 - Hypotension, unspecified Code(s): I95.9 - Hypotension, unspecified Status: Acute Assessment and Plan: History of hypertension, now with hypotension this morning. May be related to diarrhea and GI bleeding. Discussed case with laundry operator wash room. BP 74/42 - Give 500mL fluid bolus now and monitor BP, may need another bolus after. I have also notified my collaborating physician of this patient's condition. Edit: Repeat BP after first bolus is 90s/50s; will give another 500mL bolus and monitor BP closely. Updated laundry operator wash room. Edit: BPs as low as 60s/40s despite two 500mL boluses and initiation of first unit packed RBC. Updated laundry operator wash room again and my collaborating physician. We will transfer to ICU, Dr Martinez recommends terrence lawler. Appreciate recommendations. (2) Non-ST elevation [place] (NSTEMI): Code(s): I21.4 - Non-ST elevation (NSTEMI) myocardial infarction Status: Acute Assessment and Plan: Patient presents due to shortness of breath during dialysis, COVID positive 12/27/20. Patient denies chest pain. Troponins are elevated to 13.3; 14.3; 13.[address] changes in lateral leads on EKG. He was started on heparin gtt in ED which is now stopped due to multiple moderate dark red/black bowel movements starting early this morning. Appreciate cardiology input. Clinical picture is complicated by GI bleeding, hypotension. (3) Acute on chronic blood loss anemia: Code(s): D62 - Acute posthemorrhagic anemia Status: Acute Assessment and Plan: Patient with multiple moderate-sized dark stools with Hgb trending down. Was 13.0 on arrival down to 10.4 this morning. Check serial H&H q4 hr and transfuse as needed to keep Hgb > 7. GI consultation appreciated - Dr Rollins has started IV protonix drip, suspect not stable enough for EGD at this time. Edit: Hgb down to 8.5 from 10.4. Updated laundry operator wash room. Transfuse 2 units packed RBC. Continue to monitor H&H closely. (4) Melena: Code(s): K92.1 - Melena Status: Acute Assessment and Plan: See above. At least two moderate dark stools thus far today. Monitor H&H. He has history of GI bleeding in the past, duodenal ulcers on EGD April 2011. (5) COVID-19: Code(s): U07.1 - COVID-19 Status: Acute Assessment and Plan: COVID positive 12/27/20. CXR shows bibasilar airspace opacities. Remdesivir contraindicated given his end-stage renal failure. He has had adequate oxygenation on room air thus no indication for dexamethasone at this time. Continue supportive care and monitor with continue pulse oximetry due to tachypnea. Afebrile. ABG noted. (6) Coronary artery disease: Qualifiers: Associated angina: angina presence unspecified Coronary Disease-Associated Artery/Lesion type: unspecified vessel or lesion type [place] vs. transplanted heart: unspecified whether [place] or transplanted heart Qualified Code(s): I25.10 - Atherosclerotic heart disease of [place] coronary artery without angina pectoris Code(s): I25.10 - Atherosclerotic heart disease of [place] coronary artery without angina pectoris Status: Acute Assessment and Plan: CAD with history of coronary stenting 06/2020. Appreciate cardiology recommendations. His beta blockade and AMANDA were not given this AM due to hypotension. (7) Type 2 diabetes mellitus with hyperglycemia, without long-term current use of insulin: Code(s): E11.65 - Type 2 diabetes mellitus with hyperglycemia Status: Chronic Assessment and Plan: Appears diet controlled, n
[2021-01-01 10:33] LABS: Alveolar/Arterial O2 Gradient 49.4 mmHg; Base Excess ABG 2.2 mEq/l (+/-2.0); Carboxyhemoglobin 0.3 % THb (0-2.0); Fractional Inspired Oxygen 21 %; HCO3 ABG 25.2 mEq/l (22.0-26.0); Methemoglobin ABG 0.1 %THb (0-1.5); Oxygen Content ABG 13.4 %vol (16.0-22.0); Oxygen Saturation ABG 93.3 % (95.0-100.0); Oxyhemoglobin 90.2 % THb (90.0-100.0); PCO2 ABG 33.3 mmHg (35.0-45.0); PO2 ABG 60.5 mmHg (80.0-100.0); PO2 FiO2 Ratio Arterial Blood 2.88 %; Reduced Hemoglobin 9.4 %THb (0-5.0); Total Hemoglobin 10.5 g/dL (12.0-18.0); pH ABG 7.497 (7.350-7.450)
[2021-01-01 10:34] LABS: Site Drawn LEFT BRACHIAL
[2021-01-01 10:35] LABS: Device ROOM AIR; Modified Allen's Test Pass
[2021-01-01 10:49] LABS: Hematocrit 25.8 % (42.0-52.0); Hemoglobin 8.5 g/dL (14.0-18.0)
[2021-01-01] MEDS: SODIUM CHLORIDE 0.9% IV 500 ML 999 ML IV CONT ×3 (11:26→15:17)
[2021-01-01 11:56] LABS: Glucose Point of Care 184 (65-105)
--- NOTE | 2021-01-01 12:12 | PM.CNCAR ---
Assessment and Plan Assessment and plan (1) Non-ST elevation [place] (NSTEMI): Code(s): I21.4 - Non-ST elevation (NSTEMI) myocardial infarction Status: Acute Assessment and Plan: Very ill gentleman with multiple serious issues. Although he has had no chest pain he has had a non-STEMI with a significant bump in troponins. This could be associated with COVID myocarditis or coronary artery disease. EKG did not show any STEMI. Unable to treat with anticoagulation or aspirin at this time. Unable to use beta-blockers or Reece inhibitors etc.. Certainly not able to evaluate with coronary angiography due to the GI bleeding etc.. Continue supportive care. Check echo. Repeat EKG. (2) GIB (gastrointestinal bleeding): Code(s): K92.2 - Gastrointestinal hemorrhage, unspecified Status: Acute Assessment and Plan: Acute GI bleed which occurred when the patient's PTT was greater than 200 but he continues to have melena despite heparin being off for several hours. Hematocrit has declined ASA and Brilinta are also currently on hold. Obtaining hematocrit every 4 hours Started on IV pantoprazole (3) Hypotension: Qualifiers: Hypotension type: unspecified hypotension type Qualified Code(s): I95.9 - Hypotension, unspecified Code(s): I95.9 - Hypotension, unspecified Status: Acute Assessment and Plan: Hypotension is likely secondary to GI bleeding. Getting IV fluid bolus, and likely will an need transfusion. (4) Pneumonia due to COVID-19 virus: Code(s): U07.1 - COVID-19; J12.82 - Pneumonia due to coronavirus disease 2018 Status: Acute Assessment and Plan: Tachypneic, with Dm-Guillaume respiration, but managing to oxygenate reasonably well. On therapies. (5) CAD (coronary artery disease): Code(s): I25.10 - Atherosclerotic heart disease of [place] coronary artery without angina pectoris Status: Acute Assessment and Plan: Patient had left main, RCA and circumflex stents placed June 2020 and has been on aspirin and Brilinta. Aspirin and Brilinta are on hold Once the GI bleeding has stabilized would like to restart an anti-platelet agent, perhaps Plavix. The longer the patient is off anti-platelet agents, the higher the risk of acute stent thrombosis. (6) CKD (chronic kidney disease), stage V: Code(s): N18.5 - Chronic kidney disease, stage 5 Status: Chronic Assessment and Plan: Followed by Dr. Joseph History of Present Illness History of Present Illness Consult date/time: 01/01/21 12:12 Consult reason: Other (elevated troponin) Reason For Visit: COVID-19, NSTEMI, ESRD, dyspnea Narrative: 01/01/2021 Mr. Sal Duarte is a 70-year-old white male with history of CAD and stents in June we were asked to see at the request of hospitalist for our advice and opinion regarding his elevated troponins up to 8, in consultation. The patient has history of end-stage renal disease on hemodialysis, CAD status post stents in June 2020, bilateral BKA ease and other problems. Mr Arreguin has been short of breath for 5 days with decreased appetite and tested positive for COVID-19 on 12/27/2020. After dialysis yesterday was more short of breath and his O2 sats were in the 70s so he is brought to the emergency room and admitted. He has had no chest pain but troponin came back at 13.3. He was started on a heparin drip but then had some bloody stool early this morning and has had ongoing melena, so that was discontinued. His aspirin was held also. He has had troubles with soft blood pressure and frequent sinus tachycardia as well as tachypnea. The patient has a history of acute coronary syndrome in June 2020
[2021-01-01] MEDS: TUBING, BLOOD PLUM PUMP TUBING 1 EACH XX (15:21)
--- NOTE | 2021-01-01 16:34 | PM.CNNEP ---
Assessment and Plan Assessment and plan (1) ESRD (end stage renal disease): Code(s): N18.6 - End stage renal disease Status: Chronic Assessment and Plan: HD tomorrow and continue M/W/F schedule while hospitalized follow electrolytes, volume status, and clearancec (2) Non-ST elevation [place] (NSTEMI): Code(s): I21.4 - Non-ST elevation (NSTEMI) myocardial infarction Status: Acute Assessment and Plan: Cardiology following limited interventions at this time given hypotension and suspected GI bleeding conservative therapy for now (3) Hypotension: Qualifiers: Hypotension type: unspecified hypotension type Qualified Code(s): I95.9 - Hypotension, unspecified Code(s): I95.9 - Hypotension, unspecified Status: Acute Assessment and Plan: due to GI bleed(?) s/p several fluid boluses and to start pressor therapy follow trend of hemodynamics (4) COVID-19: Code(s): U07.1 - COVID-19 Status: Acute Assessment and Plan: positive on 12/27/20 stable respiratory status no need for steroids at this time follow closely (5) GIB (gastrointestinal bleeding): Code(s): K92.2 - Gastrointestinal hemorrhage, unspecified Status: Acute Assessment and Plan: as noted by history of multiple dark red/black stools off heparin gtt started on protoix gtt serial H/Hs PRBC transfusion per protocol Gastroenterology following (6) Altered mental status: Code(s): R41.82 - Altered mental status, unspecified Status: Acute Assessment and Plan: due to cardiac event, hypotension, GI bleed or combination of all follow mentation with current interventions Will continue to follow. History of Present Illness Reason for Consult Consult date: 01/01/21 Reason for consult: end stage renal disease Chief Complaint Chief complaint: COVID-19, NSTEMI, ESRD, dyspnea History of Present Illness Narrative: Most of the information I have obtained is from review of the electronic medical record as the patient is unable to provide me with any history that led to his presentation to the hospital due to his acute confusion. Next The patient is a 70-year-old male with extensive past medical history as outlined below who presented to [facility] Emergency room via EMS for further evaluation of shortness of breath. The patient was at his dialysis unit for his regularly scheduled dialysis treatment when he was noted to be more short of breath than usual. Pulse oximetry was checked reported it noted that he was 70% on room air. The patient self did not feel any more short of breath than usual but his appearance by the dialysis nursing staff did seem to be somewhat different than his baseline. It should be noted that he did test positive for COVID-19 on 12/27/2020 and his current currently receiving dialysis at a designated COVID-19 dialysis unit. In any case, he did complete his dialysis treatment and because of this issue/problem he was sent to the ER for further evaluation. Workup and evaluation in the emergency room actually she demonstrated the patient to be hemodynamically stable and was actually satting 100% on room air. Further testing demonstrated labs consistent with his known history of end-stage renal disease but he did have a markedly elevated troponin with some EKG changes concerning for ischemia. On further questioning, he did not give any specific complaints with regard to chest pain or for that matter nausea, vomiting, palpitations, or lightheadedness. Given the degree of elevation of his troponin, in spite of his known history of end-stage renal disease, it was felt that this did represent evidence of a cardiac event. He was started on a heparin drip and subsequently admitted to the hospital for further evaluation and therapy along with Cardiology consultation. Since admission, he has been having on and off issues w
--- NOTE | 2021-01-01 16:35 | PC.NURSE ---
This patient, Sal Duarte, was transferred to [ICU 4 ] on 01/01/21 at 1529. Personal belongings sent with patient. Report given to [Nina RN ]. Appropriate documentation sent with patient.
[2021-01-01 19:07] LABS: Glucose Point of Care 233 (65-105)
[2021-01-01] MEDS: INSULIN ASPART (*BKC) 100 UNITS/ML SUB-Q (19:08)
[2021-01-01 19:24] LABS: Hematocrit 29.8 % (42.0-52.0)
[2021-01-01 19:51] LABS: Partial Thromboplastin Time 60.8 SECONDS (22.3-36.8)
[2021-01-01 21:19] LABS: Alveolar/Arterial O2 Gradient 51.9 mmHg; Base Excess ABG 0.7 mEq/l (+/-2.0); Carboxyhemoglobin 0.3 % THb (0-2.0); Fractional Inspired Oxygen 21 %; HCO3 ABG 22.7 mEq/l (22.0-26.0); Methemoglobin ABG 0.3 %THb (0-1.5); Oxygen Content ABG 14.3 %vol (16.0-22.0); Oxygen Saturation ABG 94.8 % (95.0-100.0); PCO2 ABG 28.2 mmHg (35.0-45.0); PO2 ABG 64.1 mmHg (80.0-100.0); PO2 FiO2 Ratio Arterial Blood 3.05 %; Reduced Hemoglobin 7.4 %THb (0-5.0)
[2021-01-01 21:21] LABS: Device ROOM AIR; Modified Allen's Test Pass; Site Drawn LEFT RADIAL; pH ABG 7.524 (7.350-7.450)
[2021-01-02] VITALS (41 sets, daily range): BP systolic 87–240; BP diastolic 54–100; PULSE 73–135; RESP 14–40; TEMP 36–38.4; O2SAT 65–99
[2021-01-02 00:32] LABS: Hematocrit 30.1 % (42.0-52.0); Hemoglobin 10.1 g/dL (14.0-18.0)
[2021-01-02] MEDS: IPRATROPIUM BR 0.02% INH SOLN 0.5 MG/2.5 ML VIAL INHALATION ×4 (02:08→23:40)
[2021-01-02] MEDS: ALBUTEROL SULFATE NEB 2.5 MG/0.5 ML INH 5 MG INHALATION ×4 (02:08→23:40)
[2021-01-02 04:42] LABS: Basophils Percent Auto 0.1 % (0.2-1.2); Hematocrit 32.3 % (42.0-52.0); Hemoglobin 10.6 g/dL (14.0-18.0); Immature Granulocyte Absolute 0.17 K/mm3 (0.00-0.031); Immature Granulocyte Percent A 1.1 % (0-0.5); Lymphocytes Absolute Auto 0.71 K/mm3 (0.9-3.2); Lymphocytes Percent Auto 4.5 % (18.3-44.2); Mean Corpuscular HGB Conc 32.8 g/dl (32-36); Mean Corpuscular Hemoglobin 30.5 pg (26-34); Mean Corpuscular Volume 92.8 fl (80-100); Mean Platelet Volume 9.7 fl (7.4-10.4); Monocytes Absolute Auto 0.6 K/mm3 (0.1-0.6); Monocytes Percent Auto 4.1 % (2.6-8.5); Neutrophils Absolute Auto 14.2 K/mm3 (1.3-6.7); Neutrophils Percent Auto 90.2 % (45.5-73.1); Platelet Count Result 216 k/mm3 (150-375); Red Blood Count 3.48 M/mm3 (4.6-6.20); Red Cell Distribution Width 16.1 % (11.5-14.5); White Blood Count 15.8 K/mm3 (4.5-10.0)
[2021-01-02 04:51] LABS: Add Urine Microscopic? YES; Appearance Urine Clear (Clear); Bilirubin Urine Negative (Negative); Blood Urine 1+ (Negative); Color Urine Yellow (Yellow); Glucose Urine UA 1+ mg/dL (Negative); Ketones Urine Negative (Negative); Leukocyte Esterase Ur Negative LEU/UL (Negative); Nitrate Urine Negative (Negative); Protein Urine 3+ mg/dL (Negative); RBC Urine 0-2 /hpf (0-2); Specific Grav Ur 1.012 (1.001-1.035); Urobilinogen Urine Negative mg/dL (<2.0); WBC Urine 0-3 /hpf
[2021-01-02 05:12] LABS: Alanine Aminotransferase 51 U/L (4-50); Albumin Level 2.8 g/dL (3.5-5.1); Alkaline Phosphatase 61 U/L (38-126); Anion Gap 17 mmol/L (8-16); Aspartate Amino Transferase 120 U/L (17-59); Bilirubin,Total 1.4 mg/dL (0.2-1.3); Blood Urea Nitrogen 120 mg/dL (9-20); Calcium 8.1 mg/dL (8.4-10.2); Carbon Dioxide 22 mmol/L (22-30); Chloride 96 mmol/L (98-107); Estimated CRCL calculation 13 ml/min; Estimated Glomerular Filt Rate 9; Glucose 221 mg/dL (75-110); Magnesium 1.8 mg/dL (1.6-2.3); Phosphorus 5.9 mg/dL (2.5-4.5); Potassium 4.9 mmol/L (3.4-5.0); Sodium 135 mmol/L (137-145)
--- NOTE | 2021-01-02 05:43 | ECG_ITS ---
Measurements Intervals [place] Rate: 125 P: [place]: 0 QRS: -39 QRSD: 92 T: 144 QT: 310 QTc: 448 Interpretive Statements ATRIAL TACHYCARDIA WITH RAPID VENTRICULAR RESPONSE LEFT AXIS DEVIATION CANNOT RULE OUT SEPTAL INFARCT, AGE INDETERMINATE BORDERLINE ST-T WAVE ABNORMALITY- HIGH LATERAL LEADS BASELINE ARTIFACT- I, III, AVR, AVL, AVF, V1-V6 ABNORMAL ECG Electronically Signed On 01-02-2021 11:48:29 MARKET DEVELOPMENT DIRECTOR by Mina Whitaker D.O.
[2021-01-02 05:58] LABS: Hepatitis B Surface Antigen Negative (Negative)
[2021-01-02 06:04] LABS: HAV RESULT Negative (Negative); Hepatitis B Core IgM Result Negative (Negative)
[2021-01-02 06:08] LABS: Alveolar/Arterial O2 Gradient 571.2 mmHg; Base Excess ABG -0.6 mEq/l (+/-2.0); Fractional Inspired Oxygen 100 %; HCO3 ABG 21.6 mEq/l (22.0-26.0); Oxygen Content ABG 13.9 %vol (16.0-22.0); Oxygen Saturation ABG 98.6 % (95.0-100.0); Oxyhemoglobin 96.6 % THb (90.0-100.0); PCO2 ABG 27.8 mmHg (35.0-45.0); PO2 FiO2 Ratio Arterial Blood 1.14 %; Total Hemoglobin 10.1 g/dL (12.0-18.0)
[2021-01-02 06:10] LABS: Device NON-REBREATHER MASK; Modified Allen's Test Unable to perform; Site Drawn LEFT RADIAL
[2021-01-02 06:11] LABS: pH ABG 7.509 (7.350-7.450)
[2021-01-02 06:16] LABS: Hepatitis B Surface Anti Res Negative; Hepatitis C Virus Antibody Negative (Negative)
[2021-01-02 06:31] LABS: Lactic Acid Reflex 3.8 mmol/L (0.7-2.1)
[2021-01-02 09:16] LABS: Reflex Lactic Acid Yes or No Add Lactic
[2021-01-02] MEDS: DEXAMETHASONE SOD PHOS INJ 4 MG/ML VIAL 6 MG IV PUSH (09:34)
[2021-01-02 09:43] LABS: Hematocrit 29.1 % (42.0-52.0); Hemoglobin 9.7 g/dL (14.0-18.0)
[2021-01-02 09:46] LABS: Glucose Point of Care 140 (65-105)
[2021-01-02 09:53] LABS: Lactic Acid 2.2 mmol/L (0.7-2.1)
--- NOTE | 2021-01-02 09:53 | WPDPROCEDUR ---
Procedures Central Line Placement Left Femoral: Central Line Date: 01/02/21 Central Line Time: 08:00 Performed Emergently - Given emergent patient condition, temporal constraints may have precluded informed consent.: Yes Consent: Patient on Rick-Synephrine and needs to be switched to Levophed and limited peripheral access and patient was also on Protonix infusion Time Out Performed: Yes Patient Position: supine Patient placed on monitor/pulse ox: Yes Provider Prep: mask, sterile gown, sterile gloves, Max. sterile barrier precautions, cap and hand hygiene with conventional soap/water or alcohol based hand rub Central line prep: 2% Chlorhexidine scrub Sterile US Technique with sterile gel/sterile probe covers: Yes Central line lumen inserted: triple Length (cm): 16 Depth of Insertion (cm): 16 Post Procedure: sutured in place, good blood return, all ports aspirated, flushed, capped, transparent dressing, hemostatic product and antimicrobial product Patient tolerated procedure: well Complications: arterial puncture/cannulation Additional comments: Patient's vein was right below the artery. Needed multiple attempts. Arterial stick on 2nd attempt, unable to pass guidewire on 1st attempt. Successful cannulation on 3rd attempt
[2021-01-02 09:54] LABS: Ammonia < 9 umol/L (9-30)
[2021-01-02] MEDS: NOREPINEPHRINE 8 MG/D5W 250 ML 8 MG/250 ML BAG 9.38 MG IV CONT (10:22)
[2021-01-02] MEDS: FUROSEMIDE INJ 100 MG/10 ML VIAL 80 MG IV PUSH (11:03)
--- NOTE | 2021-01-02 11:04 | WPDCNINT ---
Assessment and Plan Assessment and plan (1) Shock: Code(s): R57.9 - Shock, unspecified Status: Acute Assessment and Plan: Multifactorial shock secondary to blood loss, cardiogenic and possibly sepsis Patient received 3x 500 mL bolus yesterday and also received blood transfusion 2 units Patient was started on phenylephrine infusion. Blood pressure improved in your drip but patient was receiving significant volume of terrence. He also had poor IV access and was also on Protonix infusion. Central venous catheter was emergently placed this morning and patient was started on Levophed with improvement in blood pressure Hold further IV fluids due to worsening pulmonary edema and patient having cardiomyopathy and end-stage renal disease Lactate is improving and is close to normal now (2) Acute respiratory failure with hypoxia: Code(s): J96.01 - Acute respiratory failure with hypoxia Status: Acute Assessment and Plan: Chest x-ray shows - Worsened diffuse lung disease, consistent with pulmonary edema versus pneumonia. Likely secondary to COVID-19 and pulmonary edema from volume overload, also possible bacterial pneumonia Start dexamethasone IV Patient on empiric vancomycin and Zosyn Currently saturating adequately on non-rebreather mask (3) GIB (gastrointestinal bleeding): Code(s): K92.2 - Gastrointestinal hemorrhage, unspecified Status: Acute Assessment and Plan: Patient started having GI bleeding while on heparin drip Heparin drip was discontinued Antiplatelets have been discussed Patient has received 2 units of blood Continue to monitor hemoglobin Continue Protonix infusion Transfuse as needed GI consulted but do not plan for any EGD at this time (4) Sepsis: Code(s): A41.9 - Sepsis, unspecified organism Status: Acute Assessment and Plan: Source not clear but may have a pneumonia as evidenced by bilateral infiltrates Patient was started on empiric vancomycin and Zosyn which I will continue Blood cultures have been sent and are pending (5) Pneumonia due to COVID-19 virus: Code(s): U07.1 - COVID-19; J12.82 - Pneumonia due to coronavirus disease 2019 Status: Acute Assessment and Plan: Patient tested positive on 12/27. As per his son his symptoms started few days prior Until yesterday he was on room air. Now chest x-ray shows diffuse bilateral infiltrate and patient is on non-rebreather mask Start dexamethasone Continue isolation His inflammatory markers are elevated with high LDH and ferritin consistent with COVID-19 pneumonia (6) Altered mental status: Code(s): R41.82 - Altered mental status, unspecified Status: Acute Assessment and Plan: Per patient's son patient has been confused for 2 days prior to presentation to hospital His encephalopathy has worsened and is likely multifactorial Head CT showed age-related volume loss Patient is also uremic-plan for hemodialysis today Check ammonia level (7) Non-ST elevation [place] (NSTEMI): Code(s): I21.4 - Non-ST elevation (NSTEMI) myocardial infarction Status: Acute Assessment and Plan: Patient has history of multivessel coronary artery disease and had stent placement around 5 months ago and this time presented with non STEMI Initially started on antiplatelet and heparin been discontinued due to symptomatic GI bleeding Patient is being seen by Cardiology at this point day new not plan any intervention or further evaluation due to patient's current condition Echo was done showed EF of 20-25% (8) Coronary artery disease: Qualifiers: Coronary Disease-Associated Artery/Lesion type: unspecified vessel or lesion type [place] vs. transplanted heart: unspecified whether [place] or transplanted heart Associated angina: angina presence unspecified Qualified Code(s): I25.10 - Atherosclerotic heart disease of [place] coronary artery without angina pectoris Code(s): I2
--- NOTE | 2021-01-02 13:10 | PM.PNNEP ---
Progress Note: A&P Assessment and Plan (1) ESRD (end stage renal disease): Code(s): N18.6 - End stage renal disease Status: Chronic Assessment and Plan: HD today and continue M/W/F schedule while hospitalized follow electrolytes, volume status, and clearancec (2) Non-ST elevation [place] (NSTEMI): Code(s): I21.4 - Non-ST elevation (NSTEMI) myocardial infarction Status: Acute Assessment and Plan: Cardiology following limited interventions at this time given hypotension and suspected GI bleeding conservative therapy for now (3) Hypotension: Qualifiers: Hypotension type: unspecified hypotension type Qualified Code(s): I95.9 - Hypotension, unspecified Code(s): I95.9 - Hypotension, unspecified Status: Acute Assessment and Plan: due to GI bleed(?) s/p several fluid boluses and to start pressor therapy follow trend of hemodynamics (4) COVID-19: Code(s): U07.1 - COVID-19 Status: Acute Assessment and Plan: positive on 12/27/20 stable respiratory status started on steroids follow closely (5) GIB (gastrointestinal bleeding): Code(s): K92.2 - Gastrointestinal hemorrhage, unspecified Status: Acute Assessment and Plan: as noted by history of multiple dark red/black stools off heparin gtt started on protoix gtt serial H/Hs PRBC transfusion per protocol Gastroenterology following (6) Altered mental status: Code(s): R41.82 - Altered mental status, unspecified Status: Acute Assessment and Plan: due to cardiac event, hypotension, GI bleed or combination of all follow mentation with current interventions Will continue to follow. Subjective Date/time seen: 01/02/21 13:10 Central line placed and switched to levophed gtt due ongoing needs for vasopressor therapy; still confused but respiratory status relatively stable (although tenuous); remains on protonix gtt and H/H seems relatively stable at this time; no other events to report other than fever in the last 24 hours. Exam Narrative: Exam Narrative: General: Ill appearing male in NAD but confused Heart: normal S1 and S2; no rub Lungs: coarse breath sounds Abdomen: soft, nontender, nondistended, positive bowel sounds Extremities: no cyanosis or clubbing; trace edema Skin: warm and dry Objective Data Vital Signs Vital Signs: Vital Signs Temp Pulse Resp BP Pulse Ox 02/12/21 12:30 96 26 H 91 01/02/21 12:00 37.6 C H 105 H 25 H 120/63 91 01/02/21 10:22 116 H 108/57 L 01/02/21 10:00 99 35 H 112/54 L 89 L 01/02/21 09:06 111 H 22 H 01/02/21 08:47 98 34 H 90 01/02/21 08:00 37.7 C H 84 29 H 115/67 89 L 01/02/21 06:50 102 H 95/56 L 01/02/21 06:00 38.4 C H 115 H 35 H 87/54 L 95 01/02/21 05:56 112 H 97 01/02/21 05:15 127 H 240/100 H 01/02/21 04:45 132 H 01/02/21 04:15 135 H 29 H 65 L 01/02/21 03:31 112 H 32 H 91 01/02/21 03:28 37.2 C 108 H 29 H 120/95 H 95 01/02/21 02:15 98 33 H 01/02/21 02:09 113 H 35 H 01/02/21 02:07 118 H 32 H 91 01/02/21 02:00 37.2 C 114 H 36 H 118/56 L 95 01/02/21 00:00 37.2 C 106 H 32 H 95/68 L 99 01/01/21 22:00 37.5 C 112 H 22 H 115/71 94 01/01/21 20:00 36.8 C 112 H 40 H 107/62 97 01/01/21 19:29 112 H 28 H 01/01/21 19:24 120 H 25 H 98 01/01/21 18:00 37.7 C H 114 H 29 H 102/66 100 01/01/21 17:19 37.8 C H 108 H 35 H 99/62 L 96 01/01/21 17:03 37.8 C H 131 H 24 H 118/103 H 99 01/01/21 16:25 100 75/49 L 01/01/21 16:00 37.8 C H 126 H 27 H 115/70 99 Intake/Output Intake/Output: Intake & Output 12/30/20 12/31/20 01/01/21 01/02/21 23:59 23:59 23:59 23:59 Intake Total 985 550 Output Total 1100 Balance 985 -550 Meds/Results Medications: Active Medications Generic Name Dose Route Start Last Admin Trade Name Cristino Lee
--- NOTE | 2021-01-02 13:10 | P.PNNP_ITS ---
Progress Note: A&P Assessment and Plan (1) ESRD (end stage renal disease): Code(s): N18.6 - End stage renal disease Status: Chronic Assessment and Plan: * HD today and continue M/W/F schedule while hospitalized * follow electrolytes, volume status, and clearancec (2) Non-ST elevation [place] (NSTEMI): Code(s): I21.4 - Non-ST elevation (NSTEMI) myocardial infarction Status: Acute Assessment and Plan: * Cardiology following * limited interventions at this time given hypotension and suspected GI bleeding * conservative therapy for now (3) Hypotension: Qualifiers: Hypotension type: unspecified hypotension type Qualified Code(s): I95.9 - Hypotension, unspecified Code(s): I95.9 - Hypotension, unspecified Status: Acute Assessment and Plan: * due to GI bleed(?) * s/p several fluid boluses and to start pressor therapy * follow trend of hemodynamics (4) COVID-19: Code(s): U07.1 - COVID-19 Status: Acute Assessment and Plan: * positive on 12/27/20 * stable respiratory status * started on steroids * follow closely (5) GIB (gastrointestinal bleeding): Code(s): K92.2 - Gastrointestinal hemorrhage, unspecified Status: Acute Assessment and Plan: * as noted by history of multiple dark red/black stools * off heparin gtt * started on protoix gtt * serial H/Hs * PRBC transfusion per protocol * Gastroenterology following (6) Altered mental status: Code(s): R41.82 - Altered mental status, unspecified Status: Acute Assessment and Plan: * due to cardiac event, hypotension, GI bleed or combination of all * follow mentation with current interventions Will continue to follow. Subjective Date/time seen: 01/02/21 13:10 Central line placed and switched to levophed gtt due ongoing needs for vasopressor therapy; still confused but respiratory status relatively stable (although tenuous); remains on protonix gtt and H/H seems relatively stable at this time; no other events to report other than fever in the last 24 hours. Exam Narrative: Exam Narrative: General: Ill appearing male in NAD but confused Heart: normal S1 and S2; no rub Lungs: coarse breath sounds Abdomen: soft, nontender, nondistended, positive bowel sounds Extremities: no cyanosis or clubbing; trace edema Skin: warm and dry Objective Data Vital Signs Vital Signs: Vital Signs Temp Pulse Resp BP Pulse Ox 01/02/21 12:30 96 26 H 91 01/02/21 12:00 37.6 C H 105 H 25 H 120/63 91 01/02/21 10:22 116 H 108/57 L 01/02/21 10:00 99 35 H 112/54 L 89 L 01/02/21 09:06 111 H 22 H 01/02/21 08:47 98 34 H 90 01/02/21 08:00 37.7 C H 84 29 H 115/67 89 L 01/02/21 06:50 102 H 95/56 L 01/02/21 06:00 38.4 C H 115 H 35 H 87/54 L 95 01/02/21 05:56 112 H 97 01/02/21 05:15 127 H 240/100 H 01/02/21 04:45 132 H 01/02/21 04:15 135 H 29 H 65 L 01/02/21 03:31 112 H 32 H 91 01/02/21 03:28 37.2 C 108 H 29 H 120/95 H 95 01/02/21 02:15 98 33 H 01/02/21 02:09 113 H 35 H 01/02/21 02:07 118 H 32 H 91 01/02/21 02:00 37.2 C 114 H 36 H 118/56 L 95 01/02/21 00:00 37.2 C 106 H 32 H 95/68 L 99 01/01/21 22:00 37.5 C 112 H 22 H 115/71 94
[2021-01-02] MEDS: CENTRAL LINE FLUSH 10 ML IV PUSH ×3 (13:11→23:52)
--- NOTE | 2021-01-02 13:52 | P.PNIM_ITS ---
Progress Note: A&P Assessment and Plan (1) Hypotension: Qualifiers: Hypotension type: unspecified hypotension type Qualified Code(s): I95.9 - Hypotension, unspecified Code(s): I95.9 - Hypotension, unspecified Status: Acute Assessment and Plan: * Will continue the supportive care at present time case was discussed with the family in detail patient is DNR. (2) Non-ST elevation [place] (NSTEMI): Code(s): I21.4 - Non-ST elevation (NSTEMI) myocardial infarction Status: Acute Assessment and Plan: * Patient presents due to shortness of breath during dialysis, COVID positive 12/27/20. * Patient denies chest pain. Troponins are elevated to 13.3; 14.3; 13.[address] changes in lateral leads on EKG. He was started on heparin gtt in ED which is now stopped due to multiple moderate dark red/black bowel movements starting early this morning. * Appreciate cardiology input. Clinical picture is complicated by GI bleeding, hypotension. (3) Acute on chronic blood loss anemia: Code(s): D62 - Acute posthemorrhagic anemia Status: Acute Assessment and Plan: * Patient with multiple moderate-sized dark stools with Hgb trending down. Was 13.0 on arrival down to 10.4 this morning. * Check serial H&H q4 hr and transfuse as needed to keep Hgb > 7. * GI consultation appreciated - (4) Melena: Code(s): K92.1 - Melena Status: Acute Assessment and Plan: * See above. At least two moderate dark stools thus far today. Monitor H&H. * He has history of GI bleeding in the past, duodenal ulcers on EGD April 2011. (5) COVID-19: Code(s): U07.1 - COVID-19 Status: Acute Assessment and Plan: * COVID positive 12/27/20. CXR shows bibasilar airspace opacities. * Remdesivir contraindicated given his end-stage renal failure. He has had adequate oxygenation on room air thus no indication for dexamethasone at this time. * Continue supportive care and monitor with continue pulse oximetry due to tachypnea. Afebrile. ABG noted. (6) Coronary artery disease: Qualifiers: Coronary Disease-Associated Artery/Lesion type: unspecified vessel or lesion type [place] vs. transplanted heart: unspecified whether [place] or transplanted heart Associated angina: angina presence unspecified Qualified Code(s): I25.10 - Atherosclerotic heart disease of [place] coronary artery without angina pectoris Code(s): I25.10 - Atherosclerotic heart disease of [place] coronary artery without angina pectoris Status: Acute Assessment and Plan: * CAD with history of coronary stenting 06/2020. Appreciate cardiology recommendations. His beta blockade and AMANDA were not given this AM due to hypotension. (7) Type 2 diabetes mellitus with hyperglycemia, without long-term current use of insulin: Code(s): E11.65 - Type 2 diabetes mellitus with hyperglycemia Status: Chronic Assessment and Plan: * Appears diet controlled, no DM medications on his med list. Hgb A2c 5.9%. * Monitor accu-cheks and cover with SSI if needed however he is NPO due to lethargy and confusion. (8) Dyslipidemia: Code(s): E78.5 - Hyperlipidemia, unspecified Status: Chronic Assessment and Plan: * Continue statin therapy when he can take oral medications safely. (9) Elevated LFTs:
--- NOTE | 2021-01-02 13:52 | PM.IMPN ---
Progress Note: A&P Assessment and Plan (1) Hypotension: Qualifiers: Hypotension type: unspecified hypotension type Qualified Code(s): I95.9 - Hypotension, unspecified Code(s): I95.9 - Hypotension, unspecified Status: Acute Assessment and Plan: Will continue the supportive care at present time case was discussed with the family in detail patient is DNR. (2) Non-ST elevation [place] (NSTEMI): Code(s): I21.4 - Non-ST elevation (NSTEMI) myocardial infarction Status: Acute Assessment and Plan: Patient presents due to shortness of breath during dialysis, COVID positive 12/27/20. Patient denies chest pain. Troponins are elevated to 13.3; 14.3; 13.[address] changes in lateral leads on EKG. He was started on heparin gtt in ED which is now stopped due to multiple moderate dark red/black bowel movements starting early this morning. Appreciate cardiology input. Clinical picture is complicated by GI bleeding, hypotension. (3) Acute on chronic blood loss anemia: Code(s): D62 - Acute posthemorrhagic anemia Status: Acute Assessment and Plan: Patient with multiple moderate-sized dark stools with Hgb trending down. Was 13.0 on arrival down to 10.4 this morning. Check serial H&H q4 hr and transfuse as needed to keep Hgb > 7. GI consultation appreciated - (4) Melena: Code(s): K92.1 - Melena Status: Acute Assessment and Plan: See above. At least two moderate dark stools thus far today. Monitor H&H. He has history of GI bleeding in the past, duodenal ulcers on EGD April 2011. (5) COVID-19: Code(s): U07.1 - COVID-19 Status: Acute Assessment and Plan: COVID positive 12/27/20. CXR shows bibasilar airspace opacities. Remdesivir contraindicated given his end-stage renal failure. He has had adequate oxygenation on room air thus no indication for dexamethasone at this time. Continue supportive care and monitor with continue pulse oximetry due to tachypnea. Afebrile. ABG noted. (6) Coronary artery disease: Qualifiers: Coronary Disease-Associated Artery/Lesion type: unspecified vessel or lesion type [place] vs. transplanted heart: unspecified whether [place] or transplanted heart Associated angina: angina presence unspecified Qualified Code(s): I25.10 - Atherosclerotic heart disease of [place] coronary artery without angina pectoris Code(s): I25.10 - Atherosclerotic heart disease of [place] coronary artery without angina pectoris Status: Acute Assessment and Plan: CAD with history of coronary stenting 06/2020. Appreciate cardiology recommendations. His beta blockade and AMANDA were not given this AM due to hypotension. (7) Type 2 diabetes mellitus with hyperglycemia, without long-term current use of insulin: Code(s): E11.65 - Type 2 diabetes mellitus with hyperglycemia Status: Chronic Assessment and Plan: Appears diet controlled, no DM medications on his med list. Hgb A2c 5.9%. Monitor accu-cheks and cover with SSI if needed however he is NPO due to lethargy and confusion. (8) Dyslipidemia: Code(s): E78.5 - Hyperlipidemia, unspecified Status: Chronic Assessment and Plan: Continue statin therapy when he can take oral medications safely. (9) Elevated LFTs: Code(s): R79.89 - Other specified abnormal findings of blood chemistry Status: Acute Assessment and Plan: Mild transaminitis. May be related to viral illness. Will monitor. (10) ESRD (end stage renal disease): Code(s): N18.6 - End stage renal disease Status: Chronic Assessment and Plan: End-stage r
--- NOTE | 2021-01-02 15:54 | WPDGIPROGNO ---
Progress Note: A&P Assessment and Plan (1) GIB (gastrointestinal bleeding): Code(s): K92.2 - Gastrointestinal hemorrhage, unspecified Status: Acute Assessment and Plan: family decided to change code status to DNR/DNI no melena today and hemoglobin responded appropriately to blood transfusion he is too sick with respiratory failure and requiring oxygen in order to tolerate EGD continue with iv protonix and monitor for more signs of bleeding (2) Melena: Code(s): K92.1 - Melena Status: Acute Assessment and Plan: trend hb blood thinners on hold protonix iv (3) Shock: Code(s): R57.9 - Shock, unspecified Status: Acute Assessment and Plan: he is now requiring pressors, assurance senior manager insurance on board (4) Pneumonia due to COVID-19 virus: Code(s): U07.1 - COVID-19; J12.82 - Pneumonia due to coronavirus disease 2019 Status: Acute Assessment and Plan: he is quite sick now by icu team (5) Sepsis: Code(s): A41.9 - Sepsis, unspecified organism Status: Acute (6) Altered mental status: Code(s): R41.82 - Altered mental status, unspecified Status: Acute (7) Non-ST elevation [place] (NSTEMI): Code(s): I21.4 - Non-ST elevation (NSTEMI) myocardial infarction Status: Acute Assessment and Plan: cardiology on board given acute GIB can not get any more blood thinners Subjective Date/time seen: 01/02/21 15:54 Interval history: he moved to ICU yesterday after became septic with hypotension and also more respiratory failure. RN reports that did not have more melena today and hb relativetly stable after blood transfusion Review of Systems Review of Systems: All systems reviewed & are unremarkable except as noted in HPI and below Exam Const: Other: acutely sick, with respiratory distress using oxygen Eyes: General: appearance normal, both eyes and all related structures Neck: Lymphatic: lymphadenopathy not noted Resp: Auscultation: rales and diminished lung sounds GI: GI Palp: Yes Soft to palpation and No Tenderness to palpation present (GI) Auscultation: normal bowel sounds Neuro: Cognition (Neuro): abnormal cognition Objective Data Vital Signs Vital Signs: Vital Signs - 24 hr 01/01/21 16:00 01/01/21 16:25 01/01/21 17:03 Temperature 100.0 F H 100.1 F H Pulse Rate 126 H 100 131 H Respiratory Rate 27 H 24 H Blood Pressure 115/70 75/49 L 118/103 H Pulse Oximetry 99 99 01/01/21 17:19 01/01/21 18:00 01/01/21 19:24 Temperature 100.0 F H 99.9 F H Pulse Rate 108 H 114 H 120 H Respiratory Rate 35 H 29 H 25 H Blood Pressure 99/62 L 102/66 Pulse Oximetry 96 100 98 01/01/21 19:29 01/01/21 20:00 01/01/21 22:00 Temperature 98.3 F 99.5 F Pulse Rate 112 H 112 H 112 H Respiratory Rate 28 H 40 H 22 H Blood Pressure 107/62 115/71 Pulse Oximetry 97 94 01/02/21 00:00 01/02/21 02:00 01/02/21 02:07 Temperature 99.0 F 98.9 F Pulse Rate 106 H 114 H 118 H Respiratory Rate 32 H 36 H 32 H Blood Pressure 95/68 L 118/56 L Pulse Oximetry 99 95 91 01/02/21 02:09 01/02/21 02:15 01/02/21 03:28 Temperature 98.9 F Pulse Rate 113 H 98 108 H Respiratory Rate 35 H 33 H 29 H Blood Pressure 120/95 H Pulse Oximetry 95 01/02/21 03:31 01/02/21 04:15 01/02/21 04:45 Temperature Pulse Rate 112 H 135 H 132 H Respiratory Rate 32 H 29 H Blood Pressure Pulse Oximetry 91 65 L 01/02/21 05:15 01/02/21 05:56 01/02/21 06:00 Temperature 101.1 F H Pulse Rate 127 H 112 H 115 H Respiratory Rate 35 H Blood Pressure 240/100 H 87/54 L Pulse Oximetry 97 95 01/02/21 06:50 01/02/21 08:00 01/02/21 08:47 Temperature 99.9 F H Pulse Rate 102 H 84 98 Respiratory Rate 29 H 34 H Blood Pressure 95/56 L 115/67 Pulse Oximetry 89 L 90 01/02/21 09:06 01/02/21 10:00 01/02/21 10:22 Temperature Pulse Rate 111 H 99 116 H Respiratory Rate 22 H 35 H Blood Pressure 112/54 L 108/57 L Pulse Oximetry
[2021-01-02 16:08] LABS: Hematocrit 28.6 % (42.0-52.0); Hemoglobin 9.6 g/dL (14.0-18.0)
[2021-01-02] MEDS: INSULIN ASPART (*BKC) 100 UNITS/ML SUB-Q (16:32)
[2021-01-02 16:37] LABS: Glucose Point of Care 227 (65-105)
[2021-01-02] MEDS: EPOETIN ALFA-EPBX 10,000 UNITS/ML VIAL 10000 UNITS IV PUSH (20:57)
[2021-01-03] VITALS (15 sets, daily range): BP systolic 79–116; BP diastolic 48–80; PULSE 101–149; RESP 22–60; TEMP 38.2–38.4; O2SAT 70–99
[2021-01-03 00:28] LABS: Glucose Point of Care 173 (65-105)
[2021-01-03 00:34] LABS: Hematocrit 26.8 % (42.0-52.0)
[2021-01-03 02:25] LABS: Vancomycin Random 9.8 ug/mL (10-20)
--- NOTE | 2021-01-03 03:52 | ECG_ITS ---
Measurements Intervals [place] Rate: 122 P: NE: 0 QRS: -40 QRSD: 94 T: 130 QT: 327 QTc: 466 Interpretive Statements ATRIAL FIBRILLATION WITH RAPID VENTRICULAR RESPONSE LEFT AXIS DEVIATION POOR R WAVE PROGRESSION, ANTERIOR LEADS ST-T WAVE ABNORMALITY IN HIGH LATERAL LEADS- CONSIDER ISCHEMIA ABNORMAL ECG Electronically Signed On 01-08-2021 12:38:50 SECTION MAINTAINER by Mina Whitaker D.O.
[2021-01-03] MEDS: ALBUTEROL SULFATE NEB 2.5 MG/0.5 ML INH 5 MG INHALATION (03:53)
[2021-01-03] MEDS: IPRATROPIUM BR 0.02% INH SOLN 0.5 MG/2.5 ML VIAL INHALATION (03:53)
[2021-01-03] MEDS: LORazepam INJ (*CRX) 2 MG/ML VIAL 0.5 MG IV PUSH (03:56)
[2021-01-03] MEDS: GLYCOPYRROLATE INJ (*SP) 0.2 MG/ML VIAL IV PUSH (04:21)
[2021-01-03 04:23] LABS: Alveolar/Arterial O2 Gradient 618.7 mmHg; Base Excess ABG 0.6 mEq/l (+/-2.0); Carboxyhemoglobin 0.3 % THb (0-2.0); Device HIGH FLOW THERAPY; Fractional Inspired Oxygen 100 %; HCO3 ABG 24.9 mEq/l (22.0-26.0); Methemoglobin ABG 0.4 %THb (0-1.5); Modified Allen's Test Pass; Oxygen Content ABG 13.2 %vol (16.0-22.0); Oxygen Saturation ABG 90.1 % (95.0-100.0); Oxyhemoglobin 86.9 % THb (90.0-100.0); PCO2 ABG 38.3 mmHg (35.0-45.0); PO2 FiO2 Ratio Arterial Blood 0.56 %; Reduced Hemoglobin 12.4 %THb (0-5.0); Site Drawn RIGHT RADIAL; Total Hemoglobin 10.8 g/dL (12.0-18.0)
[2021-01-03] MEDS: CENTRAL LINE FLUSH 10 ML IV PUSH (04:23)
[2021-01-03 04:41] LABS: Glucose Point of Care 178 (65-105)
[2021-01-03 05:29] LABS: Hematocrit 23.7 % (42.0-52.0); Hemoglobin 7.8 g/dL (14.0-18.0); Mean Corpuscular HGB Conc 32.9 g/dl (32-36); Mean Corpuscular Volume 91.2 fl (80-100); Mean Platelet Volume 9.7 fl (7.4-10.4); Platelet Count Result 159 k/mm3 (150-375); Red Cell Distribution Width 15.8 % (11.5-14.5); White Blood Count 14.9 K/mm3 (4.5-10.0)
[2021-01-03 05:38] LABS: Lactic Acid Reflex 2.1 mmol/L (0.7-2.1)
[2021-01-03 05:44] LABS: Alanine Aminotransferase 36 U/L (4-50); Albumin Level 2.3 g/dL (3.5-5.1); Alkaline Phosphatase 44 U/L (38-126); Anion Gap 10 mmol/L (8-16); Aspartate Amino Transferase 73 U/L (17-59); Bilirubin,Total 2.1 mg/dL (0.2-1.3); Blood Urea Nitrogen 76 mg/dL (9-20); Calcium 7.7 mg/dL (8.4-10.2); Carbon Dioxide 27 mmol/L (22-30); Chloride 95 mmol/L (98-107); Estimated CRCL calculation 17 ml/min; Estimated Glomerular Filt Rate 13; Glucose 279 mg/dL (75-110); Magnesium 1.7 mg/dL (1.6-2.3); Potassium 4.9 mmol/L (3.4-5.0); Sodium 132 mmol/L (137-145)
[2021-01-03 05:51] LABS: Lactate Dehydrogenase 876 U/L (313-618)
[2021-01-03 06:01] LABS: D Dimer 2.77 ug/mL (<0.48)
--- NOTE | 2021-01-03 07:54 | PM.PNCARD ---
Progress Note: A&P Additional Plan 70-year-old man with the above mentioned constellation of comorbidities. There is evidence of acute coronary syndrome with non ST elevation IN by troponin criteria in the setting of significant GI bleeding and problematic anemia. His anti-platelet therapy has had to be interrupted or discontinued in this setting. Given his end-stage renal disease and COVID patient has no realistic prognosis for recovery in my opinion. At this time there are no specific cardiac recommendations to make. Staff are in contact with the son/next of kin regarding whether to continue aggressive care such as ongoing dialysis Nitin Wolfe MD [facility] Subjective Date/time seen: 01/03/21 07:54 Interval history: Follow-up visit in this 70-year-old man with: Coronary artery disease with a recent aggressive/salvage percutaneous revascularization including stenting of his left main, lad and right coronary arteries. Patient was not a candidate for surgical revascularization because of comorbidities bilateral amputation and lack of conduit. Now has acute GI bleeding with hemodynamic compromise, bautista virus and end-stage renal disease dependent on hemodialysis. Patient is not a candidate for any further cardiac interventions in this setting. Exam Const: Other: Semi responsive patient in no distress of any kind HENMT: Mouth: Yes dry mucous membranes Eyes: Sclera: sclerae normal Neck: Neck: supple Resp: Other: Coarse rhonchorous breath sounds bilaterally Cardio: Rhythm: abnormal rhythm irregularly irregular GI: GI Palp: Yes Soft to palpation Auscultation: normal bowel sounds Objective Data Vital Signs Vital Signs: Vital Signs - 24 hr 01/02/21 08:00 01/02/21 08:47 01/02/21 09:06 Temperature 37.7 C H Pulse Rate 84 98 111 H Respiratory Rate 29 H 34 H 22 H Blood Pressure 115/67 Pulse Oximetry 89 L 90 01/02/21 10:00 01/02/21 10:22 01/02/21 12:00 Temperature 37.6 C H Pulse Rate 99 116 H 105 H Respiratory Rate 35 H 25 H Blood Pressure 112/54 L 108/57 L 120/63 Pulse Oximetry 89 L 91 01/02/21 12:30 01/02/21 14:00 01/02/21 14:51 Temperature Pulse Rate 96 94 93 Respiratory Rate 26 H 35 H 30 H Blood Pressure 125/74 Pulse Oximetry 91 92 01/02/21 16:00 01/02/21 18:00 01/02/21 20:00 Temperature 38.4 C H Pulse Rate 110 H 86 106 H Respiratory Rate 28 H 27 H 30 H Blood Pressure 130/77 133/75 109/58 L Pulse Oximetry 91 92 98 01/02/21 20:15 01/02/21 20:33 01/02/21 20:45 Temperature 38.3 C H Pulse Rate 77 81 73 Respiratory Rate 14 Blood Pressure 117/63 112/68 109/58 L Pulse Oximetry 98 01/02/21 21:00 01/02/21 21:15 01/02/21 21:30 Temperature Pulse Rate 103 H 103 H 107 H Respiratory Rate Blood Pressure 106/76 98/56 L 104/55 L Pulse Oximetry 01/02/21 21:45 01/02/21 22:00 01/02/21 22:01 Temperature 38.3 C H Pulse Rate 105 H 102 H 107 H Respiratory Rate 26 H Blood Pressure 107/71 87/64 L 87/64 L Pulse Oximetry 97 01/02/21 22:15 01/02/21 22:30 01/02/21 22:45 Temperature Pulse Rate 105 H 107 H 101 H Respiratory Rate Blood Pressure 99/69 L 113/83 99/72 L Pulse Oximetry 01/02/21 23:05 01/02/21 23:15 01/02/21 23:17 Temperature 38.3 C H 38.3 C H Pulse Rate 101 H 100 Respiratory Rate 20 Blood Pressure 104/70 110/74 Pulse Oximetry 98 01/02/21 23:40 01/03/21 00:00 01/03/21 00:08 Temperature 38.2 C H Pulse Rate 115 H 115 H 111 H Respiratory Rate 40 H 35 H Blood Pressure 104/64 113/80 Pulse Oximetry 94 97 01/03/21 02:00 01/03/21 03:06 01/03/21 03:53 Temperature 38.3 C H Pulse Rate 105 H 101 H 110 H Respiratory Rate 24 H 22 H Blood Pressure 112/55 L 116/76 Pulse Oximetry 99 01/03/21 03:57 01/03/21 04:00 01/03/21 04:03 Temperature 38.4 C H Pulse Rate 116 H 111 H 115 H Respiratory Rate 40 H 22 H Blood Pressure 110/64 110/64 Pulse Oximetry 97 01/03/21 04:32 01/03/21 05:07 01/03/21 0
[2021-01-03 08:24] LABS: Reflex Lactic Acid Yes or No Add Lactic
--- NOTE | 2021-01-03 08:50 | P.PNIM_ITS ---
Progress Note: A&P Assessment and Plan (1) Hypotension: Qualifiers: Hypotension type: unspecified hypotension type Qualified Code(s): I95.9 - Hypotension, unspecified Code(s): I95.9 - Hypotension, unspecified Status: Acute Assessment and Plan: * Will continue the supportive care at present time case was discussed with the family in detail patient is DNR. (2) Non-ST elevation [place] (NSTEMI): Code(s): I21.4 - Non-ST elevation (NSTEMI) myocardial infarction Status: Acute Assessment and Plan: * Patient presents due to shortness of breath during dialysis, COVID positive 12/27/20. * Patient denies chest pain. Troponins are elevated to 13.3; 14.3; 13.[address] changes in lateral leads on EKG. He was started on heparin gtt in ED which is now stopped due to multiple moderate dark red/black bowel movements starting early this morning. * Appreciate cardiology input. Clinical picture is complicated by GI bleeding, hypotension. (3) Acute on chronic blood loss anemia: Code(s): D62 - Acute posthemorrhagic anemia Status: Acute Assessment and Plan: * Patient with multiple moderate-sized dark stools with Hgb trending down. Was 13.0 on arrival down to 10.4 this morning. * Check serial H&H q4 hr and transfuse as needed to keep Hgb > 7. * GI consultation appreciated - (4) Melena: Code(s): K92.1 - Melena Status: Acute Assessment and Plan: * See above. At least two moderate dark stools thus far today. Monitor H&H. * He has history of GI bleeding in the past, duodenal ulcers on EGD April 2011. (5) COVID-19: Code(s): U07.1 - COVID-19 Status: Acute Assessment and Plan: * COVID positive 12/27/20. CXR shows bibasilar airspace opacities. * Remdesivir contraindicated given his end-stage renal failure. He has had adequate oxygenation on room air thus no indication for dexamethasone at this time. * Continue supportive care and monitor with continue pulse oximetry due to tachypnea. Afebrile. ABG noted. (6) Coronary artery disease: Qualifiers: Coronary Disease-Associated Artery/Lesion type: unspecified vessel or lesion type [place] vs. transplanted heart: unspecified whether [place] or transplanted heart Associated angina: angina presence unspecified Qualified Code(s): I25.10 - Atherosclerotic heart disease of [place] coronary artery without angina pectoris Code(s): I25.10 - Atherosclerotic heart disease of [place] coronary artery without angina pectoris Status: Acute Assessment and Plan: * CAD with history of coronary stenting 06/2020. Appreciate cardiology recommendations. His beta blockade and AMANDA were not given this AM due to hypotension. (7) Type 2 diabetes mellitus with hyperglycemia, without long-term current use of insulin: Code(s): E11.65 - Type 2 diabetes mellitus with hyperglycemia Status: Chronic Assessment and Plan: * Appears diet controlled, no DM medications on his med list. Hgb A2c 5.9%. * Monitor accu-cheks and cover with SSI if needed however he is NPO due to lethargy and confusion. (8) Dyslipidemia: Code(s): E78.5 - Hyperlipidemia, unspecified Status: Chronic Assessment and Plan: * Continue statin therapy when he can take oral medications safely. (9) Elevated LFTs:
--- NOTE | 2021-01-03 08:50 | PM.IMPN ---
Progress Note: A&P Assessment and Plan (1) Hypotension: Qualifiers: Hypotension type: unspecified hypotension type Qualified Code(s): I95.9 - Hypotension, unspecified Code(s): I95.9 - Hypotension, unspecified Status: Acute Assessment and Plan: Will continue the supportive care at present time case was discussed with the family in detail patient is DNR. (2) Non-ST elevation [place] (NSTEMI): Code(s): I21.4 - Non-ST elevation (NSTEMI) myocardial infarction Status: Acute Assessment and Plan: Patient presents due to shortness of breath during dialysis, COVID positive 12/27/20. Patient denies chest pain. Troponins are elevated to 13.3; 14.3; 13.[address] changes in lateral leads on EKG. He was started on heparin gtt in ED which is now stopped due to multiple moderate dark red/black bowel movements starting early this morning. Appreciate cardiology input. Clinical picture is complicated by GI bleeding, hypotension. (3) Acute on chronic blood loss anemia: Code(s): D62 - Acute posthemorrhagic anemia Status: Acute Assessment and Plan: Patient with multiple moderate-sized dark stools with Hgb trending down. Was 13.0 on arrival down to 10.4 this morning. Check serial H&H q4 hr and transfuse as needed to keep Hgb > 7. GI consultation appreciated - (4) Melena: Code(s): K92.1 - Melena Status: Acute Assessment and Plan: See above. At least two moderate dark stools thus far today. Monitor H&H. He has history of GI bleeding in the past, duodenal ulcers on EGD April 2011. (5) COVID-19: Code(s): U07.1 - COVID-19 Status: Acute Assessment and Plan: COVID positive 12/27/20. CXR shows bibasilar airspace opacities. Remdesivir contraindicated given his end-stage renal failure. He has had adequate oxygenation on room air thus no indication for dexamethasone at this time. Continue supportive care and monitor with continue pulse oximetry due to tachypnea. Afebrile. ABG noted. (6) Coronary artery disease: Qualifiers: Coronary Disease-Associated Artery/Lesion type: unspecified vessel or lesion type [place] vs. transplanted heart: unspecified whether [place] or transplanted heart Associated angina: angina presence unspecified Qualified Code(s): I25.10 - Atherosclerotic heart disease of [place] coronary artery without angina pectoris Code(s): I25.10 - Atherosclerotic heart disease of [place] coronary artery without angina pectoris Status: Acute Assessment and Plan: CAD with history of coronary stenting 06/2020. Appreciate cardiology recommendations. His beta blockade and AMANDA were not given this AM due to hypotension. (7) Type 2 diabetes mellitus with hyperglycemia, without long-term current use of insulin: Code(s): E11.65 - Type 2 diabetes mellitus with hyperglycemia Status: Chronic Assessment and Plan: Appears diet controlled, no DM medications on his med list. Hgb A2c 5.9%. Monitor accu-cheks and cover with SSI if needed however he is NPO due to lethargy and confusion. (8) Dyslipidemia: Code(s): E78.5 - Hyperlipidemia, unspecified Status: Chronic Assessment and Plan: Continue statin therapy when he can take oral medications safely. (9) Elevated LFTs: Code(s): R79.89 - Other specified abnormal findings of blood chemistry Status: Acute Assessment and Plan: Mild transaminitis. May be related to viral illness. Will monitor. (10) ESRD (end stage renal disease): Code(s): N18.6 - End stage renal disease Status: Chronic Assessment and Plan: End-stage r
[2021-01-03 09:02] LABS: Ferritin > 2000.00 ng/mL (11.1-264)
[2021-01-03] MEDS: DEXAMETHASONE SOD PHOS INJ 4 MG/ML VIAL 6 MG IV PUSH (09:07)
[2021-01-03 09:31] LABS: Lactic Acid 2.1 mmol/L (0.7-2.1)
--- NOTE | 2021-01-03 09:37 | WPDINTPN ---
Progress Note: A&P Assessment and Plan (1) Shock: Code(s): R57.9 - Shock, unspecified Status: Acute Assessment and Plan: Multifactorial shock secondary to blood loss, cardiogenic and possibly sepsis Patient received 3x 500 mL bolus yesterday and also received blood transfusion 2 units Patient was started on phenylephrine infusion. Blood pressure improved in your drip but patient was receiving significant volume of terrence. He also had poor IV access and was also on Protonix infusion. Central venous catheter was emergently placed this morning and patient was started on Levophed with improvement in blood pressure Hold further IV fluids due to worsening pulmonary edema and patient having cardiomyopathy and end-stage renal disease Lactate is improving and is close to normal now (2) Acute respiratory failure with hypoxia: Code(s): J96.01 - Acute respiratory failure with hypoxia Status: Acute Assessment and Plan: Chest x-ray shows - Worsened diffuse lung disease, consistent with pulmonary edema versus pneumonia. Likely secondary to COVID-19 and pulmonary edema from volume overload, also possible bacterial pneumonia Start dexamethasone IV Patient on empiric vancomycin and Zosyn Currently saturating adequately on non-rebreather mask (3) GIB (gastrointestinal bleeding): Code(s): K92.2 - Gastrointestinal hemorrhage, unspecified Status: Acute Assessment and Plan: Patient started having GI bleeding while on heparin drip Heparin drip was discontinued Antiplatelets have been discussed Patient has received 2 units of blood Continue to monitor hemoglobin Continue Protonix infusion Transfuse as needed GI consulted but do not plan for any EGD at this time (4) Sepsis: Code(s): A41.9 - Sepsis, unspecified organism Status: Acute Assessment and Plan: Source not clear but may have a pneumonia as evidenced by bilateral infiltrates Patient was started on empiric vancomycin and Zosyn which I will continue Blood cultures have been sent and are pending (5) Pneumonia due to COVID-19 virus: Code(s): U07.1 - COVID-19; J12.82 - Pneumonia due to coronavirus disease 2019 Status: Acute Assessment and Plan: Patient tested positive on 12/27. As per his son his symptoms started few days prior Until yesterday he was on room air. Now chest x-ray shows diffuse bilateral infiltrate and patient is on non-rebreather mask Start dexamethasone Continue isolation His inflammatory markers are elevated with high LDH and ferritin consistent with COVID-19 pneumonia (6) Altered mental status: Code(s): R41.82 - Altered mental status, unspecified Status: Acute Assessment and Plan: Per patient's son patient has been confused for 2 days prior to presentation to hospital His encephalopathy has worsened and is likely multifactorial Head CT showed age-related volume loss Patient is also uremic-plan for hemodialysis today Check ammonia level (7) Non-ST elevation [place] (NSTEMI): Code(s): I21.4 - Non-ST elevation (NSTEMI) myocardial infarction Status: Acute Assessment and Plan: Patient has history of multivessel coronary artery disease and had stent placement around 5 months ago and this time presented with non STEMI Initially started on antiplatelet and heparin been discontinued due to symptomatic GI bleeding Patient is being seen by Cardiology at this point day new not plan any intervention or further evaluation due to patient's current condition Echo was done showed EF of 20-25% (8) Coronary artery disease: Qualifiers: Associated angina: angina presence unspecified Coronary Disease-Associated Artery/Lesion type: unspecified vessel or lesion type [place] vs. transplanted heart: unspecified whether [place] or transplanted heart Qualified Code(s): I25.10 - Atherosclerotic heart disease of [place] coronary artery without angina pectoris Code(s): I25
[2021-01-03] MEDS: LORazepam INJ (*CRX) 2 MG/ML VIAL IV PUSH ×3 (10:03→13:33)
--- NOTE | 2021-01-03 10:12 | WPDGIPROGNO ---
Progress Note: A&P Assessment and Plan (1) GIB (gastrointestinal bleeding): Code(s): K92.2 - Gastrointestinal hemorrhage, unspecified Status: Acute Assessment and Plan: family decided to change code status to DNR/DNI, now on maximal oxygen requirement and still poor SPO2, leaning towards comfort now. no melena, hb 7.8 continue in the meantime with iv protonix deferring EGD because he is acutely ill and respiratory distress (2) Melena: Code(s): K92.1 - Melena Status: Acute Assessment and Plan: trend hb blood thinners on hold protonix iv (3) Shock: Code(s): R57.9 - Shock, unspecified Status: Acute Assessment and Plan: he is now requiring pressors, automotive parts counter assistant on board (4) Pneumonia due to COVID-19 virus: Code(s): U07.1 - COVID-19; J12.82 - Pneumonia due to coronavirus disease 2019 Status: Acute Assessment and Plan: he is quite sick now with persistent infiltrates in CXR by icu team (5) Sepsis: Code(s): A41.9 - Sepsis, unspecified organism Status: Acute (6) Altered mental status: Code(s): R41.82 - Altered mental status, unspecified Status: Acute (7) Non-ST elevation [place] (NSTEMI): Code(s): I21.4 - Non-ST elevation (NSTEMI) myocardial infarction Status: Acute Assessment and Plan: cardiology on board given acute GIB can not get any more blood thinners Subjective Date/time seen: 01/03/21 10:12 Interval history: still persistent respiratory distress requiring maximal oxygen support. RN did not report obvious melena today Review of Systems Review of Systems: All systems reviewed & are unremarkable except as noted in HPI and below Exam Const: General: in distress Other: on oxygen HENMT: General nose exam: Normal nares present Neck: Neck: supple Resp: Auscultation: crackles, rales and diminished lung sounds Cardio: Rate: regular rate GI: GI Palp: Yes Soft to palpation and No Tenderness to palpation present (GI) Auscultation: normal bowel sounds Neuro: Other: lethargic Extrem: Other: b/l amputee Psych: Other: leathargic Objective Data Vital Signs Vital Signs: Vital Signs - 24 hr 01/02/21 10:22 01/02/21 12:00 01/02/21 12:30 Temperature 99.7 F H Pulse Rate 116 H 105 H 96 Respiratory Rate 25 H 26 H Blood Pressure 108/57 L 120/63 Pulse Oximetry 91 91 01/02/21 14:00 01/02/21 14:51 01/02/21 16:00 Temperature Pulse Rate 94 93 110 H Respiratory Rate 35 H 30 H 28 H Blood Pressure 125/74 130/77 Pulse Oximetry 92 91 01/02/21 18:00 01/02/21 20:00 01/02/21 20:15 Temperature 101.1 F H 101 F H Pulse Rate 86 106 H 77 Respiratory Rate 27 H 30 H 14 Blood Pressure 133/75 109/58 L 117/63 Pulse Oximetry 92 98 98 01/02/21 20:33 01/02/21 20:45 01/02/21 21:00 Temperature Pulse Rate 81 73 103 H Respiratory Rate Blood Pressure 112/68 109/58 L 106/76 Pulse Oximetry 01/02/21 21:15 01/02/21 21:30 01/02/21 21:45 Temperature Pulse Rate 103 H 107 H 105 H Respiratory Rate Blood Pressure 98/56 L 104/55 L 107/71 Pulse Oximetry 01/02/21 22:00 01/02/21 22:01 01/02/21 22:15 Temperature 100.9 F H Pulse Rate 102 H 107 H 105 H Respiratory Rate 26 H Blood Pressure 87/64 L 87/64 L 99/69 L Pulse Oximetry 97 01/02/21 22:30 01/02/21 22:45 01/02/21 23:05 Temperature Pulse Rate 107 H 101 H 101 H Respiratory Rate Blood Pressure 113/83 99/72 L 104/70 Pulse Oximetry 01/02/21 23:15 01/02/21 23:17 01/02/21 23:40 Temperature 101 F H 101 F H Pulse Rate 100 115 H Respiratory Rate 20 40 H Blood Pressure 110/74 Pulse Oximetry 98 94 01/03/21 00:00 01/03/21 00:08 01/03/21 02:00 Temperature 100.8 F H 100.9 F H Pulse Rate 115 H 111 H 105 H Respiratory Rate 35 H 24 H Blood Pressure 104/64 113/80 112/55 L Pulse Oximetry 97 99 01/03/21 03:06 02/13/21 03:53 01/03/21 03:57 Temperature Pulse Rate 101 H 110 H 116 H
[2021-01-03] MEDS: HYDROmorphone HCL INJ (*CRX) 1 MG/ML SYR 0.5 MG IV PUSH ×2 (12:30→15:00)
--- NOTE | 2021-01-03 13:19 | P.PNNP_ITS ---
Progress Note: A&P Assessment and Plan (1) ESRD (end stage renal disease): Code(s): N18.6 - End stage renal disease Status: Chronic Assessment and Plan: * HD yesterday and continue M/W/F schedule while hospitalized * follow electrolytes, volume status, and clearancec (2) Non-ST elevation PA (NSTEMI): Code(s): I21.4 - Non-ST elevation (NSTEMI) myocardial infarction Status: Acute Assessment and Plan: * Cardiology following * limited interventions at this time given hypotension and suspected GI bleeding * conservative therapy for now (3) Hypotension: Qualifiers: Hypotension type: unspecified hypotension type Qualified Code(s): I95.9 - Hypotension, unspecified Code(s): I95.9 - Hypotension, unspecified Status: Acute Assessment and Plan: * due to GI bleed(?) * s/p several fluid boluses and to start pressor therapy * follow trend of hemodynamics (4) COVID-19: Code(s): U07.1 - COVID-19 Status: Acute Assessment and Plan: * positive on 12/27/20 * stable respiratory status * started on steroids * follow closely (5) GIB (gastrointestinal bleeding): Code(s): K92.2 - Gastrointestinal hemorrhage, unspecified Status: Acute Assessment and Plan: * as noted by history of multiple dark red/black stools * off heparin gtt * started on protoix gtt * serial H/Hs * PRBC transfusion per protocol * Gastroenterology following (6) Altered mental status: Code(s): R41.82 - Altered mental status, unspecified Status: Acute Assessment and Plan: * due to cardiac event, hypotension, GI bleed or combination of all * follow mentation with current interventions Noted Dr. Gutierrez's discussion with family and patient transitioned to comfort care measures which seems appropriate. Will follow from a distance Subjective Date/time seen: 01/03/21 13:19 Tolerated dialysis yesterday but fluid removal was not able to be achieved due to hemodynamic instability; he has continued to deteriorate overnight with regard to his respiratory status and remains on pressor therapy to maintain his MAP; has been transitioned to comfort measure by family. Exam Narrative: Exam Narrative: General: Ill appearing male in NAD but confused Heart: normal S1 and S2; no rub Lungs: coarse breath sounds Abdomen: soft, nontender, nondistended, positive bowel sounds Extremities: no cyanosis or clubbing; trace edema Skin: warm and dry Objective Data Vital Signs Vital Signs: Vital Signs Temp Pulse Resp BP Pulse Ox 01/03/21 10:00 129 H 39 H 84/51 L 74 L 01/03/21 09:50 105 H 70 L 01/03/21 06:28 91 01/03/21 06:00 38.2 C H 142 H 60 H 103/69 85 L 01/03/21 05:07 125 H 79/48 L 01/03/21 04:32 149 H 100/65 01/03/21 04:03 115 H 22 H 01/03/21 04:00 38.4 C H 111 H 40 H 110/64 97 01/03/21 03:57 116 H 110/64 01/03/21 03:53 110 H 22 H 01/03/21 03:06 101 H 116/76 01/03/21 02:00 38.3 C H 105 H 24 H 112/55 L 99 01/03/21 00:08 111 H 113/80 01/03/21 00:00 38.2 C H 115 H 35 H 104/64 97 01/02/21 23:40 115 H 40 H 94 01/02/21 23:17 38.3 C H 01/02/21 23:15 38.3 C H 100 20 110/74 98 01/02/21 23:05 101 H 104/70 01/02/21 22:45 101 H 99/72 L
--- NOTE | 2021-01-03 13:19 | PM.PNNEP ---
Progress Note: A&P Assessment and Plan (1) ESRD (end stage renal disease): Code(s): N18.6 - End stage renal disease Status: Chronic Assessment and Plan: HD yesterday and continue M/W/F schedule while hospitalized follow electrolytes, volume status, and clearancec (2) Non-ST elevation CT (NSTEMI): Code(s): I21.4 - Non-ST elevation (NSTEMI) myocardial infarction Status: Acute Assessment and Plan: Cardiology following limited interventions at this time given hypotension and suspected GI bleeding conservative therapy for now (3) Hypotension: Qualifiers: Hypotension type: unspecified hypotension type Qualified Code(s): I95.9 - Hypotension, unspecified Code(s): I95.9 - Hypotension, unspecified Status: Acute Assessment and Plan: due to GI bleed(?) s/p several fluid boluses and to start pressor therapy follow trend of hemodynamics (4) COVID-19: Code(s): U07.1 - COVID-19 Status: Acute Assessment and Plan: positive on 12/27/20 stable respiratory status started on steroids follow closely (5) GIB (gastrointestinal bleeding): Code(s): K92.2 - Gastrointestinal hemorrhage, unspecified Status: Acute Assessment and Plan: as noted by history of multiple dark red/black stools off heparin gtt started on protoix gtt serial H/Hs PRBC transfusion per protocol Gastroenterology following (6) Altered mental status: Code(s): R41.82 - Altered mental status, unspecified Status: Acute Assessment and Plan: due to cardiac event, hypotension, GI bleed or combination of all follow mentation with current interventions Noted Dr. Gutierrez's discussion with family and patient transitioned to comfort care measures which seems appropriate. Will follow from a distance Subjective Date/time seen: 01/03/21 13:19 Tolerated dialysis yesterday but fluid removal was not able to be achieved due to hemodynamic instability; he has continued to deteriorate overnight with regard to his respiratory status and remains on pressor therapy to maintain his MAP; has been transitioned to comfort measure by family. Exam Narrative: Exam Narrative: General: Ill appearing male in NAD but confused Heart: normal S1 and S2; no rub Lungs: coarse breath sounds Abdomen: soft, nontender, nondistended, positive bowel sounds Extremities: no cyanosis or clubbing; trace edema Skin: warm and dry Objective Data Vital Signs Vital Signs: Vital Signs Temp Pulse Resp BP Pulse Ox 01/03/21 10:00 129 H 39 H 84/51 L 74 L 01/03/21 09:50 105 H 70 L 01/03/21 06:28 91 01/03/21 06:00 38.2 C H 142 H 60 H 103/69 85 L 01/03/21 05:07 125 H 79/48 L 01/03/21 04:32 149 H 100/65 01/03/21 04:03 115 H 22 H 01/03/21 04:00 38.4 C H 111 H 40 H 110/64 97 01/03/21 03:57 116 H 110/64 01/03/21 03:53 110 H 22 H 01/03/21 03:06 101 H 116/76 01/03/21 02:00 38.3 C H 105 H 24 H 112/55 L 99 01/03/21 00:08 111 H 113/80 01/03/21 00:00 38.2 C H 115 H 35 H 104/64 97 01/02/21 23:40 115 H 40 H 94 01/02/21 23:17 38.3 C H 01/02/21 23:15 38.3 C H 100 20 110/74 98 01/02/21 23:05 101 H 104/70 01/02/21 22:45 101 H 99/72 L 01/02/21 22:30 107 H 113/83 01/02/21 22:15 105 H 99/69 L 01/02/21 22:01 107 H 87/64 L 01/02/21 22:00 38.3 C H 102 H 26 H 87/64 L 97 01/02/21 21:45 105 H 107/71 01/02/21 21:30 107 H 104/55 L 01/02/21 21:15 103 H 98/56 L 01/02/21 21:00 103 H 106/76 01/02/21 20:45 73 109/58 L 01/02/21 20:33 81 112/68 01/02/21 20:15 38.3 C H 77 14 117/63 98 01/02/21 20:00 38.4 C H 106 H 30 H 109/58 L 98 02/12/21 18:00 86 27 H 133/75 92 01/02/21 16:00 110 H 28 H 130/77 91 01/02/21 14:51 93 30 H 01/02/21 14:00 94 35 H 125/74 92 Intake/Output Intake/Out
[2021-01-03] MEDS: HYDROmorphone HCL INJ (*CRX) 1 MG/ML SYR (13:33)
--- NOTE | 2021-01-03 16:06 | PM.DS ---
DS: Admitting Diagnosis Admitting Diagnosis Admitting Diagnosis: COVID pneumonia Severe hypotension End-stage renal disease on dialysis Diabetes mellitus Coronary disease DS: Discharge Diagnosis Discharge Diagnosis (1) Sepsis: Code(s): A41.9 - Sepsis, unspecified organism Status: Acute (2) Shock: Code(s): R57.9 - Shock, unspecified Status: Acute (3) Pneumonia due to COVID-19 virus: Code(s): U07.1 - COVID-19; J12.82 - Pneumonia due to coronavirus disease 2019 Status: Acute (4) Hypotension: Qualifiers: Hypotension type: unspecified hypotension type Qualified Code(s): I95.9 - Hypotension, unspecified Code(s): I95.9 - Hypotension, unspecified Status: Acute (5) Acute on chronic blood loss anemia: Code(s): D62 - Acute posthemorrhagic anemia Status: Acute (6) Coronary artery disease: Qualifiers: Associated angina: angina presence unspecified Coronary Disease-Associated Artery/Lesion type: unspecified vessel or lesion type [place] vs. transplanted heart: unspecified whether [place] or transplanted heart Qualified Code(s): I25.10 - Atherosclerotic heart disease of [place] coronary artery without angina pectoris Code(s): I25.10 - Atherosclerotic heart disease of [place] coronary artery without angina pectoris Status: Acute (7) Acute respiratory failure with hypoxia: Code(s): J96.01 - Acute respiratory failure with hypoxia Status: Acute DS: Summary Hospital Course Hospital Course: 70 years old male was admitted complained of any shortness of breath patient was found to have COVID pneumonia Patient also have coronary artery disease. Patient was intubated secondary to respiratory failure patient was given antibiotics and then dissected and continued on dialysis for end-stage renal disease. Patient did note get better and continued to deteriorate. After discussion with the family patient was made DNR and patient on 01/03/2021 down but 4:00 a.m.. Status at Discharge Overall status at discharge: other Time Spent with Patient Time attestation: Total time spent providing and/or coordinating discharge services: Time spent: Less than 30 minutes Specific discharge activities: Patient Exam Narrative: Exam Narrative: The patient on 01/03/2021 4. P.m. DS: Data Data Completed and Pending Labs on day of discharge: Labs from last 24 hours 01/03/21 01/03/21 01/03/21 09:12 05:14 05:14 WBC RBC Hgb Hct MCV MCH MCHC RDW Plt Count MPV D-Dimer Puncture Site ABG pH ABG pCO2 ABG pO2 ABG PO2/FiO2 Ratio ABG HCO3 ABG O2 Saturation ABG O2 Content ABG Base Excess A-a Gradient Oxyhemoglobin Carboxyhemoglobin Methemoglobin Reduced Hemoglobin Total Hemoglobin O2 Delivery Device O2 Liters/Min FiO2 Sodium Potassium Chloride Carbon Dioxide Anion Gap BUN Creatinine Estim Creat Clear Calc Estimated GFR Glucose POC Capillary Glucose Lactic Acid 2.1 Calcium Magnesium Ferritin > 2000.00 H Total Bilirubin AST ALT Alkaline Phosphatase Lactate Dehydrogenase 876 H Total Protein Albumin Random Vancomycin 01/03/21 01/03/21 01/03/21 05:14 05:14 05:14 WBC RBC Hgb Hct MCV MCH MCHC RDW Plt Count MPV D-Dimer 2.77 H Puncture Site ABG pH ABG pCO2 ABG pO2 ABG PO2/FiO2 Ratio ABG HCO3 ABG O2 Saturation ABG O2 Content ABG Base Excess A-a Gradient Oxyhemoglobin Carboxyhemoglobin Methemoglobin Reduced Hemoglobin Total Hemoglobin O2 Delivery Device O2 Liters/Min FiO2 Sodium 132 L Potassium 4.9 Chloride 95 L Carbon Dioxide 27 Anion Gap 10 BUN 76 H D Creatinine 4.60 H Estim Creat Clear Calc 17 Estimated GFR 13
--- NOTE | 2021-01-03 16:20 | PM.DDS ---
Discharge Sum: Prov Provider Primary care physician: Jos Lemon MD Admitting provider: Pam Kim MD Consults: 12/31/20 20:05 Consult to Physician Routine Comment: Consulting Provider: Judie Arrieta Reason for consultation: NSTEMI Has provider been notified: Yes 01/01/21 08:03 Consult to Physician Routine Comment: called office and left message Consulting Provider: Jenaro Mujica optical design engineer/MD group to consult: GI Reason for consultation: Moderate dark red bowel movement, anemia Has provider been notified: Yes 01/01/21 14:29 Consult to Physician Routine Comment: called dr. wheatley with consult Consulting Provider: Janine Wheatley optical design engineer/MD group to consult: Nephrology Reason for consultation: ESRD on HD Has provider been notified: Yes 01/01/21 16:11 Consult to Physician Routine Comment: Consulting Provider: Eulogio Martinez optical design engineer/MD group to consult: Automated Equipment Engineer Technician Reason for consultation: Hypotension, GI bleed, NSTEMI Has provider been notified: Yes Discharge Sum: Diag Contributing Factors (1) Sepsis: (2) Shock: (3) Pneumonia due to COVID-19 virus: (4) Hypotension: (5) Acute on chronic blood loss anemia: (6) Hypertension: (7) Coronary artery disease: (8) Acute respiratory failure with hypoxia: (9) Non-ST elevation MD (NSTEMI): Discharge Sum: Summary Date and Time Date of admission: 12/31/20 20:02 Date of : 01/03/21 Time of : 16:20 Summary Details: A 70 years old male who was admitted complaints of any shortness of breath patient physical examination shows that patient has cough pneumonia. Patient was given antibiotics and also him discomfort. Patient will trend to acute respiratory failure patient was intubated. Patient was also continued on treatment for end-stage renal disease on dialysis. Patient blood pressure was maintained with IV fluids and pressors. Patient also have an acute myocardial infarction and blood loss anemia. Patient was given supportive care. After discussion with the med family patient was made DNR. Patient on 01/03/2021 at 4:00 p.m. p.m.. MD notified. Additional Data Confirmation of as documented by pronouncing clinician: no pulse, no respirations, no heart sounds and pupils fixed and dilated Family: contacted Attending/PCP notified?: Yes Attending physician: Sonia Abdullahi, PAC Was code activated?: No Autopsy requested?: No deportation examiner notified?: No Organ bank notified?: No Advance directives: Yes Hospice patient?: No
== END 2021-01-03 15:45 | disposition expired | DRG 871 ==
LOC: ANHED 20:01 → ANHIMU 01-01 07:37 → ANHICU 01-02 07:40 → ANHIMU 01-06 14:37
PROVIDERS: Emergency Medicine; Family Medicine; Internal Medicine; Internal Medicine Cardiovascular Disease; Internal Medicine Nephrology; Physician Assistant; Admitting Provider Family Medicine; Emergency Provider Emergency Medicine; PCP Family Medicine; Visit Provider Physician Assistant
DX: A41.89 Other specified sepsis (principal); U07.1 COVID-19; J12.82 Pneumonia due to coronavirus disease 2019; N18.6 End stage renal disease; I21.4 Non-ST elevation (NSTEMI) myocardial infarction; R65.21 Severe sepsis with septic shock; G93.41 Metabolic encephalopathy; J96.01 Acute respiratory failure with hypoxia; I12.0 Hypertensive chronic kidney disease with stage 5 chronic kidney disease or end stage renal disease; D62 Acute posthemorrhagic anemia; K92.2 Gastrointestinal hemorrhage, unspecified; T45.515A Adverse effect of anticoagulants, initial encounter; R57.0 Cardiogenic shock; R57.8 Other shock; E11.22 Type 2 diabetes mellitus with diabetic chronic kidney disease; D63.1 Anemia in chronic kidney disease; I25.10 Atherosclerotic heart disease of native coronary artery without angina pectoris; E11.42 Type 2 diabetes mellitus with diabetic polyneuropathy; E11.21 Type 2 diabetes mellitus with diabetic nephropathy; E11.319 Type 2 diabetes mellitus with unspecified diabetic retinopathy without macular edema; E11.65 Type 2 diabetes mellitus with hyperglycemia; N40.0 Benign prostatic hyperplasia without lower urinary tract symptoms; K21.9 Gastro-esophageal reflux disease without esophagitis; E78.5 Hyperlipidemia, unspecified; I95.9 Hypotension, unspecified; R79.89 Other specified abnormal findings of blood chemistry; Z66 Do not resuscitate; Z99.2 Dependence on renal dialysis; Z95.5 Presence of coronary angioplasty implant and graft; Z98.42 Cataract extraction status, left eye; Z98.41 Cataract extraction status, right eye; Z89.512 Acquired absence of left leg below knee; Z89.511 Acquired absence of right leg below knee; Z87.891 Personal history of nicotine dependence; I25.2 Old myocardial infarction
CPT/HCPCS: 36415; 36430; 36600; 70450; 71045; 80053; 80074; 80202; 81001; 82140; 82274; 82375; 82728; 82805; 82948; 83036; 83050; 83605; 83615; 83735; 83880; 84100; 84484; 85014; 85018; 85025; 85027; 85380; 85610; 85730; 86140; 86706; 86850; 86900; 86901; 86923; 87015; 87040; 87045; 87046; 87269; 87272; 87324; 87427; 89055; 93005; 93306; 94640; 96374; 99291; A9270; C1751; C1752; C9113; G0257; J1100; J1170; J1644; J1815; J1940; J2060; J2370; J2543; J3010; J3370; J7040; J7060; P9016; Q5106